=== PATIENT | female | born 1980 | race Caucasian/White ===

== ENCOUNTER 2018-01-16 03:28 | Emergency (ER) | payer OTHER, SELFPAY ==
--- NOTE | 2018-01-16 04:39 | ER ---
Nurse's Notes [facility] Name: Deyanira Del Castillo Age: 37 yrs Sex: Female : 1980 Arrival Date: 01/16/2018 Time: 03:29 Bed 18 Private MD: Diagnosis: Pain in right shoulder Presentation: 01/16 03:36 Presenting complaint: Patient states: that 1 week ago she was lifting boxes and hurt fc her right shoulder. Pain has just continually gotten worse. Transition of care: patient was not received from another setting of care. Onset of symptoms was January 09, 2018. Risk Assessment: Do you want to hurt yourself or someone else? Patient reports no desire to harm self or others. Initial Sepsis Screen: Does the patient meet any 2 criteria? No. Patient's initial sepsis screen is negative. Does the patient have a suspected source of infection? No. Patient's initial sepsis screen is negative. Care prior to arrival: None. 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 - Social history:: Smoking status: Patient uses tobacco products, smokes one pack cigarettes per day. - Ebola Screening: : Patient negative for fever greater than or equal to 101.5 degrees Fahrenheit, and additional compatible Ebola Virus Disease symptoms Patient denies exposure to infectious person Patient denies travel to an Ebola-affected area in the 21 days before illness onset. - Family history:: not pertinent. Screenin:00 Abuse screen: Denies threats or abuse. Nutritional screening: No deficits noted. ea Tuberculosis screening: No symptoms or risk factors identified. Fall Risk None identified. Assessment: 04:00 General: Appears uncomfortable, Behavior is calm, cooperative, appropriate for age. ea Pain: Complains of pain in right clavicle and anterior aspect of right upper chest Pain radiates to left clavicle Pain currently is 9 out of 10 on a pain scale. Quality of pain is described as aching, Is continuous, Alleviated by nothing. Neuro: Level of Consciousness is awake, alert, obeys commands, Oriented to person, place, time, situation. Cardiovascular: Patient's skin is warm and dry. Respiratory: Airway is patent Respiratory effort is even, unlabored, Respiratory pattern is regular, symmetrical. GI: No signs and/or symptoms were reported involving the gastrointestinal system. : No signs and/or symptoms were reported regarding the genitourinary system. EENT: No signs and/or symptoms were reported regarding the EENT system. Derm: Skin is pink, warm \T\ dry. Musculoskeletal: Reports pain in right clavicle and right shoulder. 04:58 Reassessment: Patient and/or family updated on plan of care and expected duration. Pain ea level reassessed. Patient is alert, oriented x 3, equal unlabored respirations, skin warm/dry/pink. Discharge instructions given to patient, verbalized the understanding of instructions. Patient states feeling better. Patient states symptoms have improved. Vital Signs: 03:39 BP 118 / 77; Pulse 86; Resp 18; Temp 99.2(O); Pulse Ox 97% on R/A; Weight 58.97 kg (R); fc Height 5 ft. 10 in. (177.80 cm) (R); Pain 7/10; 03:39 Body Mass Index 18.65 (58.97 kg, 177.80 cm) ED Course: 03:29 Patient arrived in ED. am2 03:37 Triage completed. 03:39 Arm band placed on Patient placed in an exam room, on a stretcher. 03:44 Levi Agudelo MD is Attending Physician. [facility] 03:58 X-ray completed. Portable x-ray completed in exam room. Patient tolerated procedure kw well. 03:59 Shoulder Right (2 View) XRAY In Process Unspecified. EDMS 04:00 Patient has correct armband on for positive identification. Bed in low position. Call ea light in reach. Side rails up X2. 04:33 Meghan Bui, DOV is Primary Nurse. ea 04:38 Justin Hunt MD is Referral Physician. kathleen 05:01 No provider procedures requiring assistance completed. Patient did not have IV access ea during this emergency room visit. Administered Medications: 04:43 Drug: Motrin 600 mg Route: PO; ea 05:00 Follow up: Response: No adverse reaction ea 04:43 Drug: Valium 5 mg Route: PO; ea 05:00 Follow up: Response: No adverse reaction ea 04:43 Drug: [place] (7.5 mg-325 mg) 1 tabs Route: PO; ea 05:00 Follow up: Response: No adverse reaction ea Outcome: 04:39 Discharge ordered by MD. wang 05:01 Condition: improved ea 05:01 Discharge instructions given to patient, Instructed on discharge instructions, follow up and referral plans. medication usage, Demonstrated understanding of instructions, follow-up care, medications, Prescriptions given X 3. 05:04 Discharged to home ambulatory, with significant other. ea 05:05 Patient left the ED. ea Signatures: Dispatcher [employer] EDMS Levi Agudelo MD MD cha Chretien, Felicia, RN RN Val Stephen Amanda am2 Antunez, Elena, RN RN manjinder
--- NOTE | 2018-01-16 04:40 | EDPHYS ---
Physician Documentation [facility] Name: Deyanira Del Castillo Age: 37 yrs Sex: Female : 1980 Arrival Date: 01/16/2018 Time: 03:29 Bed 18 Private MD: ED Physician Levi Agudelo HPI: 01/16 04:34 This 37 yrs old Female presents to ER via Ambulatory with complaints of kathleen Shoulder Pain. 04:34 The patient or guardian complains of decreased range of motion, pain, spasm, kathleen tenderness. right shoulder and right trapezius. Context: The problem was sustained at an unknown site, resulted from lifting or carrying, The patient experiences decreased range of motion. Onset: The symptoms/episode began/occurred 2 day(s) ago. Modifying factors: the symptoms are alleviated by remaining still, The symptoms are aggravated by lifting weight, movement, rotation of arm. Associated signs and symptoms: The patient has no apparent associated signs or symptoms. Severity of symptoms: At their worst the symptoms were mild, moderate, in the emergency department the symptoms are unchanged. Treatment prior to arrival includes: elevation of the extremity, applying pressure to the affected area. The patient has not experienced similar symptoms in the past. 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 - Social history:: Smoking status: Patient uses tobacco products, smokes one pack cigarettes per day. - Ebola Screening: : Patient negative for fever greater than or equal to 101.5 degrees Fahrenheit, and additional compatible Ebola Virus Disease symptoms Patient denies exposure to infectious person Patient denies travel to an Ebola-affected area in the 21 days before illness onset. - Family history:: not pertinent. ROS: 04:34 Constitutional: Negative for fever, chills, and weight loss, Eyes: Negative for injury, kathleen pain, redness, and discharge, ENT: Negative for injury, pain, and discharge, Neck: Negative for injury, pain, and swelling, Cardiovascular: Negative for chest pain, palpitations, and edema, Respiratory: Negative for shortness of breath, cough, wheezing, and pleuritic chest pain, Abdomen/GI: Negative for abdominal pain, nausea, vomiting, diarrhea, and constipation, Back: Negative for injury and pain, : Negative for injury, bleeding, discharge, and swelling, Skin: Negative for injury, rash, and discoloration, Neuro: Negative for headache, weakness, numbness, tingling, and seizure, Psych: Negative for depression, anxiety, suicide ideation, homicidal ideation, and hallucinations, Allergy/Immunology: Negative for hives, rash, and allergies, Endocrine: Negative for neck swelling, polydipsia, polyuria, polyphagia, and marked weight changes, Hematologic/Lymphatic: Negative for swollen nodes, abnormal bleeding, and unusual bruising. 04:34 MS/extremity: Positive for injury or acute deformity, decreased range of motion, pain, tenderness, of the anterior aspect of right shoulder and posterior aspect of right shoulder. Exam: 04:34 Constitutional: This is a well developed, well nourished patient who is awake, alert, kathleen and in no acute distress. Head/Face: Normocephalic, atraumatic. Eyes: Pupils equal round and reactive to light, extra-ocular motions intact. Lids and lashes normal. Conjunctiva and sclera are non-icteric and not injected. Cornea within normal limits. Periorbital areas with no swelling, redness, or edema. ENT: Nares patent. No nasal discharge, no septal abnormalities noted. Tympanic membranes are normal and external auditory canals are clear. Oropharynx with no redness, swelling, or masses, exudates, or evidence of obstruction, uvula midline. Mucous membranes moist. Neck: Trachea midline, no thyromegaly or masses palpated, and no cervical lymphadenopathy. Supple, full range of motion without nuchal rigidity, or vertebral point tenderness. No Meningismus. Chest/axilla: Normal chest wall appearance and motion. Nontender with no deformity. No lesions are appreciated. Cardiovascular: Regular rate and rhythm with a normal S1 and S2. No gallops, murmurs, or rubs. Normal PMI, no JVD. No pulse deficits. Respiratory: Lungs have equal breath sounds bilaterally, clear to auscultation and percussion. No rales, rhonchi or wheezes noted. No increased work of breathing, no retractions or nasal flaring. Abdomen/GI: Soft, non-tender, with normal bowel sounds. No distension or tympany. No guarding or rebound. No evidence of tenderness throughout. Back: No spinal tenderness. No costovertebral tenderness. Full range of motion. Pelvic Exam: Normal external genitalia. Speculum exam with closed cervical os, no discharge or bleeding noted. Bimanual exam with normal adnexa, no adnexal or cervical motion tenderness. Normal uterus. Skin: Warm, dry with normal turgor. Normal color with no rashes, no lesions, and no evidence of cellulitis. Neuro: Awake and alert, GCS 15, oriented to person, place, time, and situation. Cranial nerves II-XII grossly intact. Motor strength 5/5 in all extremities. Sensory grossly intact. Cerebellar exam normal. Normal gait. Psych: Awake, alert, with orientation to person, place and time. Behavior, mood, and affect are within normal limits. 04:34 Respiratory: the patient does not display signs of respiratory distress, Respirations: normal, Breath sounds: rhonchi, that are mild, are scattered. 04:34 Musculoskeletal/extremity: Extremities: noted in the anterior aspect of right shoulder and posterior aspect of right shoulder: decreased ROM, pain, ROM: full passive range of motion, limited active range of motion, Pulses: noted to be 4+ in the bilateral radial, brachial, femoral, popliteal, posterior tibial and and dorsalis pedis arteries., Sensation intact. Compartment Syndrome exam of affected extremity: is normal. no numbness, no tingling, no sensation deficit, no palor, no weak pulses, severe pain, with passive ROM. Vital Signs: 03:39 BP 118 / 77; Pulse 86; Resp 18; Temp 99.2(O); Pulse Ox 97% on R/A; Weight 58.97 kg (R); fc Height 5 ft. 10 in. (177.80 cm) (R); Pain 7/10; 03:39 Body Mass Index 18.65 (58.97 kg, 177.80 cm) fc MDM: 03:44 Patient medically screened. [facility] 01/16 03:44 Order name: Shoulder Right (2 View) XRAY [facility] 01/16 04:34 Order name: Sling; Complete Time: 04:49 [facility] Administered Medications: 04:43 Drug: Motrin 600 mg Route: PO; ea 05:00 Follow up: Response: No adverse reaction ea 04:43 Drug: Valium 5 mg Route: PO; ea 05:00 Follow up: Response: No adverse reaction ea 04:43 Drug: Kingsley (7.5 mg-325 mg) 1 tabs Route: PO; ea 05:00 Follow up: Response: No adverse reaction ea Disposition: 01/16/18 04:39 Discharged to Home. Impression: Pain in right shoulder. - Condition is Stable. - Discharge Instructions: Musculoskeletal Pain, Shoulder Pain, Shoulder Pain, [id number]. - Prescriptions for Skelaxin 800 mg Oral Tablet - take 1 tablet by ORAL route every 6 hours As needed; 24 tablet. Tylenol- Codeine #3 300-30 mg Oral Tablet - take 2 tablet by ORAL route every 6 hours As needed; 30 tablet. Motrin IB 200 mg Oral Tablet - take 2 tablet by ORAL route every 6 hours As needed as needed with food; 24 tablet. - Medication Reconciliation Form, Thank You Letter, Antibiotic Education, Prescription Opioid Use, Work release form form. - Follow up: Private Physician; When: 2 - 3 days; Reason: Recheck today's complaints, Continuance of care, Re-evaluation by your physician. Follow up: Justin Hunt MD; When: 2 - 3 days; Reason: Recheck today's complaints, Continuance of care, Re-evaluation by your physician. - Problem is new. - Symptoms have improved. Signatures: Dispatcher [employer] EDLevi Levi MD MD cha Chretien, Felicia, RN RN fc Antunez, Elena, RN RN ea Corrections: (The following items were deleted from the chart) 05:05 04:39 01/16/2018 04:39 Discharged to Home. Impression: Pain in right shoulder. ea Condition is Stable. Forms are Medication Reconciliation Form, Thank You Letter, Antibiotic Education, Prescription Opioid Use. Follow up: Private Physician; When: 2 - 3 days; Reason: Recheck today's complaints, Continuance of care, Re-evaluation by your physician. Follow up: Dr. Justin Hunt; When: 2 - 3 days; Reason: Recheck today's complaints, Continuance of care, Re-evaluation by your physician. Problem is new. Symptoms have improved. kathleen
[2018-01-16 05:45] VITALS: BP 118/77; TEMP 99.2; O2SAT 97
--- NOTE | 2018-01-16 10:08 | RAD REPORT ---
EXAM DESCRIPTION: RAD - Shoulder Right 2 View - 01/16/2018 3:59 am CLINICAL HISTORY: PAIN COMPARISON: None. No comparisons FINDINGS: No bone or joint abnormality is detected.
== END 2018-01-16 05:05 | disposition home or self-care (01) ==
LOC: ER 03:28
DX: M25.511 Pain in right shoulder (principal); F17.210 Nicotine dependence, cigarettes, uncomplicated
CPT/HCPCS: 99283

== ENCOUNTER 2018-02-03 17:26 | Emergency (ER) | payer SELFPAY ==
--- OUTSIDE RECORDS SUMMARY | 2018-02-03 17:30 | XMS REPORT | Continuity of Care Document ---
:1980 Author Organization Interface Problems Problem Status Onset Classification Date Comments Source Date Reported CAUDA EQUINA Active 11/28/19 [facility] SYNDROME 16 [facility] CHIARI Active 09/01/19 [facility] MALFORMATION 16 [facility] INCISIONAL Active 03/07/20 [facility] PAIN,PURULENT 13 Medical DISCHARGE FROM Center INFECTED SURGERY Active 03/07/20 [facility] INCISION 13 Medical Center KIARI Active 02/06/20 [facility] MALFORMATIONOK 13 Medical PER [facility] [id number] CHAIRI Active 01/28/[address] Chiari Resolved Problem 12/02/2015 [facility] Murmur<sup>1</rucker Active Problem 12/02/2015 patient [facility] p> states she Medical had heart Center murmur-rowan enital Neck Resolved Problem 12/02/2015 patient [facility] pain<sup>2</sup> states her Medical neck pain Center is due to chiari malformatio n. Pain Active Problem 12/02/2015 [facility] Chiari Resolved Problem 03/12/2013 [facility] Murmur Active Problem 03/12/2013 [facility] Neck pain Resolved Problem 03/12/2013 [facility] Pain Active Problem 03/12/2013 [facility] PUD - Peptic Active Problem 03/12/2013 [facility] ulcer disease [facility] COMPRESSION OF Active [facility] BRAIN [facility] OTHER GENERAL Active [facility] SYMPTOMS [facility] Medications Medication Details Route Status Patient Ordering Order Source Instructions Provider Date Saline Flush 10 ml, Route: Inactive 11/28/ [facility] 0.9% MISC, Drug 2015 Medical Form: INJ, [place] Dosing Weight 63.636, kg, Q12H, Start date: 11/29/15 9:00:00 CDT, Duration: 30 day, Stop date: 12/28/15 21:00:00 CDTNotes: (Same as: BD Posiflush) sennosides, [facility] 8.6 mg, 1 tab, Inactive 11/28/ [facility] Route: PO, 2016 Medical Drug Form: Center TAB, Dosing Weight 63.636, kg, Q12H, Start date: 11/29/15 9:00:00 CDT, Duration: 30 day, Stop date: 12/28/15 21:00:00 CDTNotes: (Same as: Senokot) Docusate 100 mg, 1 cap, Inactive 11/28[facility] Route: PO, 2015 Medical Drug form: [place] CAP, Q12H, Dosing Weight 63.636, kg, Start date: 11/29/15 9:00:00 CDT, Duration: 30 day, Stop date: 12/28/15 21:00:00 CDTNotes: (Same as: Colace) (Do Not Crush) Ketorolac 10 mg=1 tab, Active [facility] Tromethamine 10 PO, Q6H, PRN 2016 Medical MG Oral Tablet Pain, X 5 day, Center # 20 tab, 0 Refill(s) Acetaminophen 1 tab, PO, Inactive 11/28[facility] 300 MG / Codeine Q4H, PRN Pain, 2016 Medical Phosphate 30 MG X 7 day, # 42 Center Oral Tablet tab, 0 [Tylenol with Refill(s) Codeine #3] docusate sodium 100 mg=1 cap, Inactive 11/28[facility] 100 mg oral PO, Q12H, # 10 2016 Medical capsule cap, 0 Center Refill(s) cyclobenzaprine 10 mg=1 tab, Inactive 11/28[facility] [place] 10 mg oral PO, TID, PRN 2016 Medical tablet Spasm, # 30 Center tab, 0 Refill(s) Morphine 2 mg, 1 mL, Inactive 11/28[facility] Route: IVP, 2016 Medical Drug form: [place] INJ, Q4H, Dosing Weight 63.636, kg, PRN Pain Score 7-10, Start date: 11/29/15 1:16:00 CDT, Duration: 30 day, Stop date: 12/29/15 1:15:00 CDTNotes: (Same as:MORPhine Sulfate) Flexeril 10 mg, 1 tab, Inactive 11/28[facility] Route: PO, 2016 Medical Drug form: [place] TAB, TID, Dosing Weight 63.636, kg, PRN Spasm, Start date: 11/29/15 1:16:00 CDT, Duration: 30 day, Stop date: 12/29/15 1:15:00 CDTNotes: (Same As: Flexeril) Labetalol 10 mg, 2 mL, Inactive Cait Route: IVP, 2015 Medical Drug form: Center INJ, Q15Min, Dosing Weight 63.636, kg, PRN Hypertension, Start date: 11/29/15 1:14:00 CDT, Duration: 3 doses or times, Stop date: Limited # of times Hydralazine 10 mg, 0.5 mL, Inactive Cait Route: IV, 2015 Medical Drug form: [place] INJ, Q4H, Dosing Weight 63.636, kg, PRN Hypertension, Start date: 11/29/15 1:14:00 CDT, Duration: 30 day, Stop date: 12/29/15 1:13:00 CDTNotes: (Same as: Apresoline) Push over 5 minutes Saline Flush 10 ml, Route: Inactive Cait 0.9% MISC, Drug 2015 Medical Form: INJ, Center Dosing Weight 63.636, kg, PRN, PRN Line Flush, Start date: 11/29/15 1:12:00 CDT, Duration: 30 day, Stop date: 12/29/15 1:11:00 CDTNotes: (Same as: BD Posiflush) Regular Insulin, 3 unit, 0.03 Inactive [facility] Human 100 UNT/ML mL, Route: 2016 Medical Injectable SUB-Q, Drug Center Solution form: SOLN, PRN, Dosing Weight 63.636, kg, PRN Abnormal Lab Result, Start date: 11/29/15 1:12:00 CDT, Duration: 30 day, Stop date: 12/29/15 1:11:00 CDTNotes: (Same as: Humulin R) Roll in palms of hands gently; Do not shake vigorously. "single patient use only" (Restricted to patients requiring a dose > 60 units) WASTE: F/P - Black; E - Municipal Trash Bin Stable for 28 days at room temperature Expires in days from Date Dextrose 50% 25 gm, 50 mL, Inactive [facility]ait Syringe Route: IVP, 2015 Medical Drug Form: [place] INJ, Dosing Weight 63.636, kg, PRN, PRN Abnormal Lab Result, Start date: 11/29/15 1:12:00 CDT, Duration: 30 day, Stop date: 12/29/15 1:11:00 CDT Sodium Chloride 1,000 mL, Inactive [facility]ait 0.154 MEQ/ML Rate: 75 2015 Medical Injectable ml/hr, Infuse [place] Solution over: 13.3 hr, Route: IVPB, Dosing Weight 63.636 kg, Total Volume: 1,000, Start date: 11/29/15 1:12:00 CDT, Duration: 30 day, Stop date: 12/29/15 1:11:00 CDT Ondansetron 4 mg, 2 mL, Inactive [facility] Route: IVP2015 Medical Drug form: [place] INJ, Q8H, Dosing Weight 63.636, kg, PRN Nausea & Vomiting, Start date: 11/29/15 1:12:00 CDT, Duration: 30 day, Stop date: 12/29/15 1:11:00 CDTNotes: (Same as: Zofran) MEDICATION WASTE Product Size: 4 mg Product Wasted: ___ mg Bisacodyl 10 mg, 1 supp, Inactive [facility]ait Route: RI, 2016 Medical Drug form: [place] SUPP, Daily, Dosing Weight 63.636, kg, PRN Constipation, Start date: 11/29/15 1:12:00 CDT, Duration: 30 day, Stop date: 12/29/15 1:11:00 CDTNotes: (Same As: Dulcolax, Bisco-Lax) Acetaminophen 1 tab, Route: Inactive [facility]ait 325 MG / PO, Drug Form: 2015 Medical Hydrocodone TAB, Dosing Center Bitartrate 10 MG Weight 63.636, Oral Tablet kg, Q4H, PRN Pain Score 4-6, Start date: 11/29/15 1:12:00 CDT, Duration: 30 day, Stop date: 12/29/15 1:11:00 CDTNotes: Do not exceed 4gm/day of acetaminophen. (Same as: [facility] 325/10) Morphine 2 mg, Route: Inactive [facility] IVP, Q1H, 2015 Medical Dosing Weight Center 63.636, kg, PRN Pain Score 7-10, Start date: 11/29/15 1:12:00 CDT, Duration: 30 day, Stop date: 12/29/15 1:11:00 CDT Acetaminophen 1 tab, PO, Active [facility] 325 MG / BID, 0 2015 [facility] Hydrocodone Refill(s) [place] Bitartrate 10 MG Oral Tablet [[facility] 10/325] pregabalin 200 200 mg=1 cap, Active [facility] mg oral capsule PO, TID, # 30 2015 Medical cap, 1 Center Refill(s) Keflex 500 mg 500 mg, 1 cap, PO Active Broderick [facility] oral capsule PO, QID, 56 2012 Medical cap, Center Substitution Allowed, CAP Keflex 500 mg 500 mg, 1 cap, PO Active Esquenayari [facility] oral capsule PO, QID, 28 Lay 2012 Medical cap, Center Substitution Allowed, CAP acetaminophen-hy 1 tab, PO, PO Active Esquenayari [facility] drocodone 325 Q4H, PRN, 50 Lay 2012 Medical mg-10 mg oral tab, Pain Center tablet Score 4-6, Substitution Allowed, Maintenance, TAB Remove - 1 patch, TOP No Longer Johnson [facility] lidocaine Route: TOP, Active 2012 Medical topical patch Daily, Drug Center form: ERFILM, Start date: 03/10/13 5:00:00, Duration: 30 day, Stop date: 04/08/13 5:00:00 Celebrex 200 mg, 2 cap, PO No Longer Alex [facility] Route: PO, Active 2012 Medical Drug form: [place] CAP, Q12H, Dosing Weight 56, kg, Start date: 03/10/13 4:00:00, Duration: 30 day, Stop date: 04/08/13 16:00:00 Lyrica 100 mg, 1 cap, PO No Longer Alex [facility] Route: PO, Active 2012 Medical Drug form: [place] CAP, Q8H, Dosing Weight 56, kg, Start date: 03/10/13 0:00:00, Duration: 30 day, Stop date: 04/08/13 16:00:00 tramadol 100 mg, 2 tab, PO No Longer Alex [facility] Route: PO, Active 2012 Medical Drug form: Center TAB, Q6H, Dosing Weight 56, kg, Start date: 03/09/13 18:00:00, Duration: 30 day, Stop date: 04/08/13 12:00:00 ibuprofen 400 mg 800 mg, 2 tab, PO No Longer Hernandez [facility] oral tablet Route: PO, Active 2012 Medical Drug form: Center TAB, Q6H, Dosing Weight 56, kg, PRN Pain, Start date: 03/09/13 17:32:00, Duration: 30 day, Stop date: 04/08/13 17:31:00 Lidoderm 5% 1 patch, TOP No Longer Alex [facility] topical film Route: TOP, Active 2012 Medical (patch) Daily, Drug Center form: FILM, on 12 hrs and off 12 hrs, Start date: 03/09/13 17:00:00, Duration: 30 day, Stop date: 04/07/13 17:00:00, Remove after 12 hoursRemove after 12 hours Celebrex 200 mg, Route: PO No Longer Johnson [facility] PO, Drug form: Active 2012 Medical CAP, BID, Center Dosing Weight 56, kg, Start date: 03/09/13 17:00:00, Duration: 30 day, Stop date: 04/08/13 9:00:00 HYDROmorphone 15 mg, 30 mL, IV No Longer Meiner [facility] 0.5mg/mL [facility] [employer] [facility] Route: IV, [facility] [facility] Active 2012 Medical (15mg/30 mL) 15 Dose: 0.2 mg, Center mg [facility] [employer] [facility] Lockout: 8 minutes, 4 Hour Limit (In MG): 6, Drug Form: INJ, Continuous, STAT, Start date: 03/09/13 16:20:00, Duration: 30 day, Stop date: 04/08/13 16:19:00 [facility] 10/325 1 tab, Route: PO No Longer Johnson [facility] oral tablet PO, Drug Form: Active 2012 Medical TAB, Dosing Center Weight 56, kg, Q4H, Start date: 03/09/13 16:00:00, Duration: 30 day, Stop date: 04/08/13 12:00:00 Robaxin 1,000 mg, 2 PO No Longer Johnson 03/09[facility] tab, Route: Active 2012 Medical PO, Drug form: [place] TAB, Q8H, Dosing Weight 56, kg, Start date: 03/09/13 16:00:00, Duration: 30 day, Stop date: 04/08/13 8:00:00 Dilaudid 2 mg, 1 mL, IV No Longer Hernandez 03/09[facility] Route: IV, Active 2012 Medical Drug form: [place] INJ, Q2H, Dosing Weight 56, kg, PRN Pain, Start date: 03/09/13 15:47:00, Stop date: 03/09/13 21:00:00 Celebrex 400 mg, 4 cap, PO No Longer Johnson 03/09[facility] Route: PO, Active 2012 Medical Drug form: [place] CAP, ONCE, Dosing Weight 56, kg, Start date: 03/09/13 15:20:00, Stop date: 03/09/13 15:20:00 Lyrica 300 mg, 3 cap, PO No Longer Johnson 03/09[facility] Route: PO, Active 2012 Medical Drug form: [place] CAP, ONCE, Dosing Weight 56, kg, Start date: 03/09/13 15:19:00, Stop date: 03/09/13 15:19:00 ondansetron 4 mg, 2 mL, IVP No Longer Florence 03/09[facility] Route: IVP, Active 2012 Medical Drug form: [place] INJ, ONCE, Dosing Weight 56, kg, PRN Nausea & Vomiting, Start date: 03/09/13 12:05:00 flumazenil 0.2 mg, 2 mL, IVP No Longer Florence 03/09[facility] Route: IVP, Active 2012 Medical Drug form: [place] INJ, PRN, Dosing Weight 56, kg, PRN Benzodiazepine Reversal, Initial dose, Start date: 03/09/13 12:05:00, Duration: 30 day, Stop date: 04/08/13 12:04:00 naloxone 0.04 mg, 0.1 IVP No Longer [place] 03/09[facility] mL, Route: Active 2012 Medical IVP, Drug Center form: INJ, Q2MIN, Dosing Weight 56, kg, PRN Narcotic Reversal, Start date: 03/09/13 12:05:00, Duration: 8 doses or times, Stop date: Limited # of times hydromorphone 0.5 mg, 0.25 IVP No Longer Alex [facility]ait mL, Route: Active 2012 Medical IVP, Drug Center form: INJ, Q5Min, Dosing Weight 56, kg, PRN Pain Score 7-10, Start date: 03/09/13 12:05:00, Duration: 5 doses or times, Stop date: Limited # of times Phenergan 25 mg, 1 tab, PO No Longer Cheli C[facility] Route: PO, Active 2012 Medical Drug form: [place] TAB, Q6H, Dosing Weight 56, kg, PRN as needed for nausea/vomitin g, Start date: 03/09/13 11:43:00, Duration: 30 day, Stop date: 04/08/13 11:42:00 [facility]fran 4 mg, 1 tab, [facility] Route: PO, 2012 Medical Drug form: [place] TAB, ONCE, Dosing Weight 56, kg, Start date: 03/09/13 11:43:00, Stop date: 03/09/13 11:43:00 Saline Flush 5 ml, Route: IVP No Longer Esquenazi Cait 0.9% IVP, Drug Active Lay 2012 Medical Form: INJ, [place] Dosing Weight 56.818, kg, Q12H, Start date: 03/07/13 21:00:00, Duration: 30 day, Stop date: 04/06/13 9:00:00 morphine Sulfate 1 mg, 0.5 mL, IV No Longer Alex 03/08[facility] Cait Route: IV, Active 2012 Medical Drug form: Center INJ, Q2H, Dosing Weight 56, kg, PRN as needed for pain, Start date: 03/07/13 20:48:00, Duration: 30 day, Stop date: 04/06/13 20:47:00 vancomycin + 1.25 gm, IV No Longer Cheli Cait Sodium Chloride Route: IV, Active 2012 Medical 0.9% IV 250 mL [id number], Center Dosing Weight 56.818, kg, Start date: 03/07/13 20:00:00, Stop date: 04/06/13 8:00:00 cefepime 1 gm, Route: IVPB No Longer Floyd [facility] IVPB, Drug Active 2012 Medical form: INJ, Center ABXQ8H, Dosing Weight 56.818, kg, (CrCl >/=50 ml/min), Start date: 03/07/13 19:00:00, Duration: 30 day, Stop date: 04/06/13 11:00:00 Keflex 500 mg, 1 cap, PO No Longer Floyd [facility] Route: PO, Active 2012 Medical Drug form: Center CAP, Q6H, Dosing Weight 56.818, kg, Start date: 03/07/13 18:00:00, Duration: 30 day, Stop date: 04/06/13 12:00:00 Saline Flush 5 ml, Route: IVP No Longer Esquenazi [facility] 0.9% IVP, Drug Active Lay 2012 Medical Form: INJ, Center Dosing Weight 56.818, kg, PRN, PRN Line Flush, Start date: 03/07/13 17:42:00, Duration: 30 day, Stop date: 04/06/13 17:41:00 Sodium Chloride 1,000 mL, IV No Longer Esquenazi [facility] 0.9% IV 1,000 mL Rate: 50 Active Lay 2013 Medical ml/hr, Infuse Center over: 20 hr, Route: IV, Dosing Weight 56.818 kg, Total Volume: 1,000, Start date: 03/07/13 17:42:00, Duration: 30 day, Stop date: 04/06/13 17:41:00 tramadol 50 mg, 1 tab, PO No Longer Alex Cait Route: PO, Active 2012 Medical Drug form: Center TAB, Q4H, Dosing Weight 56.818, kg, PRN Pain Score 1-3, Start date: 03/07/13 17:42:00, Duration: 30 day, Stop date: 04/06/13 17:41:00 acetaminophen-hy 2 tab, Route: PO No Longer Alex Ciat drocodone 325 PO, Drug Form: Active 2012 Medical mg-10 mg oral TAB, Dosing Center tablet Weight 56.818, kg, Q4H, PRN Pain Score 7-10, Start date: 03/07/13 17:42:00, Duration: 30 day, Stop date: 04/06/13 17:41:00 Omnipaque 98 mL, Route: IVP No Longer [facility] 350mg/ml IVP, Drug Active 2012 Medical Form: [facility] Dosing Weight 56.818, kg, ONCALL, STAT, Start date: 03/07/13 17:10:00, Duration: 1 doses or times, Weight=95 - 109kg -- "To be infused by Radiology Staff ONLY"Weig ht=95 - 109kg -- "To be infused by Radiology Staff ONLY" Zofran 4 mg, 2 mL, IVP No Longer [facility] Route: IVP, Active 2012 Medical Drug form: [place] INJ, ONCE, Dosing Weight 56.818, kg, Priority: STAT, Start date: 03/07/13 16:14:00, Stop date: 03/07/13 16:14:00 morphine Sulfate 4 mg, 1 mL, IVP No Longer [facility] Route: IVP, Active 2012 Medical Drug form: [place] INJ, ONCE, Dosing Weight 56.818, kg, Priority: STAT, Start date: 03/07/13 16:13:00, Stop date: 03/07/13 16:13:00 Pepcid 20 mg 20 mg, 1 tab, PO No Longer Iluonakhamhe [facility] oral tablet Route: PO, Active 2012 Medical Drug form: [place] TAB, Daily, Dosing Weight 63.009, kg, Start date: 02/18/13 9:00:00, Duration: 30 day, Stop date: 03/19/13 9:00:00 Zofran 4 mg oral 4 mg, 1 tab, PO Active [place] tablet PO, ONCE, 10 Lay 2012 Medical tab, Center Substitution Allowed, TAB dexamethasone 1 See Active Esquenazi [facility] mg oral tablet Instructions, Lay 2012 Medical with food, 36 Center tab, Substitution Allowedwith food Pepcid 20 mg 20 mg, 1 tab, PO Active Esquenazi [facility] oral tablet PO, Daily, 50 Lay 2012 Medical tab, Center Substitution Allowed, TAB docusate sodium 100 mg, 1 cap, PO Active [facility] [place] 100 mg oral PO, Q12H, 50 Lay 2012 Medical capsule cap, Center Substitution Allowed, CAP acetaminophen-hy 1 tab, PO, PO Active [place] [place] drocodone 325 Q4H, PRN, 50 Lay 2012 Medical mg-10 mg oral tab, Pain Center tablet Score 4-6, Substitution Allowed, Maintenance, TAB Phenergan 12.5 mg, 0.5 IVPB No Longer [place] mL, Route: Active 2012 Medical IVPB, Drug Center form: INJ, Q4H, Dosing Weight 63.009, kg, PRN Nausea & Vomiting, Start date: 02/17/13 18:19:00, Duration: 30 day, Stop date: 03/19/13 18:18:00 magnesium 2 gm, 50 mL, IVPB No Longer Claudette [facility] sulfate Route: IVPB, Active 2012 Medical Drug form: [place] INJ, ONCE, Start date: 02/17/13 4:32:00, Stop date: 02/17/13 4:32:00 cefazolin 1 gm, Route: IVPB No Longer Keith [facility] IVPB, Drug Active 2012 Medical form: PDR/INJ, [place] ABXQ8H, Start date: 02/16/13 22:30:00, Duration: 1 doses or times, Stop date: 02/16/13 22:30:00 Dilaudid 0.5 mg, 0.25 IVP No Longer Shagagi [facility] mL, Route: Active 2012 Medical IVP, Drug Center form: INJ, ONCE, Dosing Weight 61.364, kg, Priority: STAT, Start date: 02/16/13 22:20:00, Stop date: 02/16/13 22:20:00 FENTanyl patch 1 patch, TOP No Longer Shagagi [facility] 75 mcg/hr Route: TOP, Active 2012 Medical Drug Form: [place] ERFILM, Dosing Weight 61.364, kg, Q72H, STAT, Start date: 02/16/13 21:11:00, Duration: 30 day, Stop date: 03/15/13 21:11:00 Saline Flush 5 ml, Route: IVP No Longer Keith [facility] 0.9% IVP, Drug Active 2012 Medical Form: INJ, Center Dosing Weight 61.364, kg, Q12H, Start date: 02/16/13 21:00:00, Duration: 30 day, Stop date: 03/18/13 9:00:00 docusate 100 mg, 1 cap, PO No Longer Keith [facility] Route: PO, Active 2012 Medical Drug form: Center CAP, Q12H, Dosing Weight 61.364, kg, Start date: 02/16/13 21:00:00, Duration: 30 day, Stop date: 03/18/13 9:00:00 senna 8.6 mg, 1 tab, PO No Longer Keith [facility] Route: PO, Active 2012 Medical Drug Form: Center TAB, Dosing Weight 61.364, kg, Q12H, Start date: 02/16/13 21:00:00, Duration: 30 day, Stop date: 03/18/13 9:00:00 famotidine 20 mg, 2 mL, IVP No Longer Iluon[place]hamhe [facility] Route: IVP, Active 2012 Medical Drug form: Center INJ, Q12H, Dosing Weight 61.364, kg, Start date: 02/16/13 21:00:00, Duration: 30 day, Stop date: 03/18/13 9:00:00 Dilaudid 0.5 mg, Route: IV No Longer Narcsio [facility] IV, ONCE, Active 2012 Medical Dosing Weight Center 61.364, kg, PRN Pain, Start date: 02/16/13 20:04:00 diphenhydrAMINE 12.5 mg, 0.25 IVP No Longer Davies [facility] mL, Route: Active 2012 Medical IVP, Drug Center form: INJ, PRN, Dosing Weight 61.364, kg, PRN Itching, Start date: 02/16/13 18:44:00, Duration: 1 day, Stop date: 02/17/13 18:43:00 flumazenil 0.2 mg, 2 mL, IVP No Longer Dais [facility] Route: IVP, Active 2012 Medical Drug form: Center INJ, PRN, Dosing Weight 61.364, kg, PRN Benzodiazepine Reversal, Initial dose, Start date: 02/16/13 18:44:00, Duration: 1 day, Stop date: 02/17/13 18:43:00 naloxone 0.04 mg, 0.1 IVP No Longer Dais [facility] mL, Route: Active 2012 Medical IVP, Drug Center form: INJ, Q2MIN, Dosing Weight 61.364, kg, PRN Narcotic Reversal, Start date: 02/16/13 18:44:00, Duration: 8 doses or times, Stop date: 02/17/13 0:00:00 morphine Sulfate 2 mg, 1 mL, IVP No Longer Dais [facility] Route: IVP, Active 2012 Medical Drug form: Center INJ, Q5Min, Dosing Weight 61.364, kg, PRN Pain Score 4-6, Start date: 02/16/13 18:44:00, Duration: 5 doses or times, Stop date: 02/17/13 0:00:00 ondansetron 4 mg, 2 mL, IVP No Longer Davies Campuss [facility] Route: IVP, Active 2012 Medical Drug form: Center INJ, ONCE, Dosing Weight 61.364, kg, PRN Nausea & Vomiting, Start date: 02/16/13 18:44:00 promethazine 6.25 mg, 0.25 IVPB No Longer Dais [place] mL, Route: Active 2012 Medical IVPB, Drug Center form: INJ, ONCE, Dosing Weight 61.364, kg, PRN Nausea & Vomiting, Start date: 02/16/13 18:44:00 dexamethasone 4 mg, 1 tab, PO No Longer Keith [facility] Route: PO, Active 2012 Medical Drug form: Center TAB, Q6H, Dosing Weight 61.364, kg, Start date: 02/16/13 18:00:00, Duration: 30 day, Stop date: 03/18/13 12:00:00 cefazolin (SCIP) 1 gm, Route: IVPB No Longer Keith [facility] IVPB, Drug Active 2012 Medical form: INJ, Center Q8H, Dosing Weight 61.364, kg, Start date: 02/16/13 16:00:00, Duration: 1 doses or times, Stop date: 02/16/13 16:00:00 Dextrose 50% 12.5 gm, 25 IVP No Longer Keith [facility] Syringe mL, Route: Active 2012 Medical IVP, Drug Center Form: INJ, Dosing Weight 61.364, kg, PRN, PRN Abnormal Lab Result, Start date: 02/16/13 13:35:00, Duration: 30 day, Stop date: 03/18/13 13:34:00 insulin regular 3 unit, 0.03 SUB-Q No Longer Keith [facility] 100 units/mL mL, Route: Active 2012 [facility] human SUB-Q, Drug Center recombinant form: SOLN, PRN, Dosing Weight 61.364, kg, PRN Abnormal Lab Result, Start date: 02/16/13 13:35:00, Duration: 30 day, Stop date: 03/18/13 13:34:00 Saline Flush 5 ml, Route: IVP No Longer Keith [facility] 0.9% IVP, Drug Active 2012 Medical Form: INJ, Center Dosing Weight 61.364, kg, PRN, PRN Line Flush, Start date: 02/16/13 13:35:00, Duration: 30 day, Stop date: 03/18/13 13:34:00 morphine Sulfate 1 mg, 0.5 mL, IVP No Longer Keith [facility] Route: IVP, Active 2012 Medical Drug form: Center INJ, Q1H, Dosing Weight 61.364, kg, PRN Pain Score 7-10, Start date: 02/16/13 13:35:00, Duration: 30 day, Stop date: 03/18/13 13:34:00 acetaminophen-hy 2 tab, Route: PO No Longer Keith [facility] drocodone 325 PO, Drug Form: Active 2012 Medical mg-10 mg oral TAB, Dosing Center tablet Weight 61.364, kg, Q4H, PRN Pain Score 7-10, Start date: 02/16/13 13:35:00, Duration: 30 day, Stop date: 03/18/13 13:34:00 dexamethasone 10 mg, 2.5 mL, IVP No Longer Keith [facility] Route: IVP, Active 2012 Medical Drug form: Center INJ, ONCE, Dosing Weight 61.364, kg, Start date: 02/16/13 13:35:00, Stop date: 02/16/13 13:35:00 bisacodyl 10 mg, 1 supp, RI [facility] Route: RI, Active 2012 Medical Drug form: [place] SUPP, Daily, Dosing Weight 61.364, kg, PRN Constipation, Start date: 02/16/13 13:35:00, Duration: 30 day, Stop date: 03/18/13 13:34:00 Sodium Chloride 1,000 mL, IV [facility] 0.9% IV 1,000 mL Rate: 50 Active 2012 Medical ml/hr, Infuse Center over: 20 hr, Route: IV, Dosing Weight 61.364 kg, Total Volume: 1,000, Start date: 02/16/13 13:35:00, Duration: 30 day, Stop date: 03/18/13 13:34:00 Sodium Chloride 250 mL, Rate: IV No Longer Keith Cait 0.9% (Bolus) IV 500 ml/hr, Active 2012 Medical 250 mL Infuse over: Center 30 minutes, Route: IV, Dosing Weight 61.364 kg, Total Volume: 250, Priority: STAT, Start date: 02/16/13 13:35:00, Duration: 1 doses or times, Stop date: 02/16/13 14:04:00 HYDROcodone-ibup 1 tab, PO, PO Active Cait rofen 7.5 mg-200 Q4H, PRN, for 2012 Medical mg oral tablet pain, Center Substitution Allowed, Maintenance, TAB Xanax 0.5 mg 0.5 mg, 1 tab, PO No Longer Claudette Cait oral tablet Route: PO, Active 2012 Medical Drug form: [place] TAB, PRE OP, Dosing Weight 61.364, kg, Start date: 02/16/13 11:00:00, Duration: 1 doses or times, Stop date: 02/17/13 0:00:00 cefazolin 2 gm, 50 mL, IVPB No Longer Claudette Cait Route: IVPB, Active 2012 Medical Drug form: [place] INJ, PRE OP, Start date: 02/16/13 3:00:00, Duration: 1 day, Stop date: 02/17/13 2:59:00 Allergies, Adverse Reactions, Alerts Substance Category Reaction Severity Reaction Status Date Comments Source type Reported Esoterica propensity Adverse Active [facility] with to adverse Reaction Medical Sunscreen reactions to [place] substance Immunizations Immunization Date Given Site Status Last Updated Comments Source Results Order Name Results Value Reference Date Interpretation Comments Source Range URINE AND UA Leuk Est Moderate Negative 11/28 [facility] *ABN* [place] (11/29/15 3:49 AM) URINE AND UA WBC 54 /HPF 0 - 5 11/28 [facility] [facility] URINE AND UA Bacteria Occasional None Seen 11/28 [facility] /HPF /HPF /2015 [facility] URINE AND UA <=1.0 0.1 - 1.0 11/28 [facility] Urobilinogen mg/dL [facility] URINE AND UA Mucus Moderate None Seen 11/28 [facility] /LPF /LPF [facility] URINE AND UA Sq Epi None Seen 11/28 [facility] URINE AND UA Color Yellow Yellow 11/28 [facility] *NA* [place] (11/29/15 3:49 AM) URINE AND UA Turbidity Clear Clear 11/28 [facility] (11/29/15 3:49 AM) [place] URINE AND UA Spec Grav 1.019 <=1.030 11/28 [facility] URINE AND UA Protein 20 mg/dL Negative 11/28 [facility] mg/dL [facility] URINE AND UA pH 6.0 5.0 - 8.0 11/28 [facility]2015 [facility] URINE AND UA Glucose Negative Negative 11/28 [facility] mg/dL mg/dL [facility] URINE AND UA Ketones Negative Negative 11/28 [facility] mg/dL mg/dL [facility] URINE AND UA Bili Negative Negative 11/28 [facility] *NA* [place] (11/29/15 3:49 AM) URINE AND UA Blood Trace Negative 11/28 [facility] *ABN* [place] (11/29/15 3:49 AM) URINE AND UA Nitrite Negative Negative 11/28 [facility] (11/29/15 3:49 AM) [place] URINE AND UA RBC 3 /HPF 0 - 2 11/28 [facility] BLOOD BANK Antibody Scrn Negative 11/28 [facility] (11/29/15 1:53 AM) [place] BLOOD BANK ABO/Rh O POS 11/28 [facility] ELECTROLYTE AGAP 10.8 meq/L 10.0 - 11/28 [facility] S 20.0 [facility] ELECTROLYTE eGFR 122 11/28 Result Comment: The eGFR is calculated using the CKD-EPI formula. In most young, healthy individuals the eGFR will be > 90 mL/min/1.73m2. The eGFR declines with age. An eGFR of 60-89 may be normal in [facility] mL/min/1.7 some populations, particularly the elderly, for whom the CKD-EPI formula has not been extensively validated. Use of the eGFR is not recommended in the following populations: [address] Individuals with unstable creatinine concentrations, including patients and those with serious co-morbid conditions. Patients with extremes in muscle mass or diet. The data above are obtained from the National Kidney Disease Education Program (NKDEP) which additionally recommends that when the eGFR is used in patients with extremes of body mass index for purposes of drug dosing, the eGFR should be multiplied by the estimated BMI. ELECTROLYTE Chloride Lvl 111 meq/L 95 - 109 11/28 [facility] ELECTROLYTE CO2 24 meq/L 24 - 32 11/28 [facility] ELECTROLYTE Calcium Lvl 9.1 mg/dL 8.5 - 10.5 11/28 [facility] ELECTROLYTE Glucose Lvl 110 mg/dL 70 - 99 11/28 [facility] ELECTROLYTE Sodium Lvl 142 meq/L 135 - 145 11/28 [facility] ELECTROLYTE Creatinine 0.55 mg/dL 0.50 - 11/28 [facility] Lvl 1.40 [facility] ELECTROLYTE BUN 14 mg/dL 7 - 22 11/28 [facility] ELECTROLYTE Potassium Lvl 3.8 meq/L 3.5 - 5.1 11/28 [facility] HEMATOLOGY INR 1.02 0.85 - 11/28 [facility] 1.17 [facility] HEMATOLOGY PTT 29.1 s 22.9 - 11/28 [place] 35.8 /2015 [facility] HEMATOLOGY PT 13.7 s 12.0 - 11/28 [facility] 14.7 [facility] HEMATOLOGY RDW 13.2 % 11.5 - 11/28 14.5 /2015 [facility] HEMATOLOGY MCH 31.7 pg 27.0 - 11/28 31.0 [facility] HEMATOLOGY Hct 37.6 % 36.0 - 11/28 48.0 [facility] HEMATOLOGY MCV 94.4 fL 80.0 - 11/28 98.0 [facility] HEMATOLOGY Hgb 12.6 g/dL 12.0 - 11/28 16.0 [facility] HEMATOLOGY MCHC 33.5 g/dL 32.0 - 11/28 36.0 [facility] HEMATOLOGY Platelet 212 K/CMM 133 - 450 11/28 [facility] HEMATOLOGY MPV 10.8 fL 7.4 - 10.4 11/28 [facility] HEMATOLOGY WBC 9.1 K/CMM 3.7 - 10.4 11/28 [facility] HEMATOLOGY RBC 3.98 M/CMM 4.20 - 11/28 5.40 [facility] HEMATOLOGY Basophils # 0.1 K/CMM 0.0 - 0.2 11/28 [facility] HEMATOLOGY Monocytes # 0.7 K/CMM 0.0 - 0.8 11/28 [facility] HEMATOLOGY Lymphocytes 15.5 % 20.0 - 11/28 40.0 [facility] HEMATOLOGY Lymphocytes # 1.4 K/CMM 1.0 - 5.5 11/28 [facility] HEMATOLOGY Segs-Bands # 7.0 K/CMM 1.5 - 8.1 11/28 [facility] HEMATOLOGY Eosinophils 0.1 % 0.0 - 4.0 11/28 [facility] HEMATOLOGY Basophils 0.6 % 0.0 - 1.0 11/28 [facility] HEMATOLOGY Monocytes 7.2 % 2.0 - 12.0 11/28 [facility] HEMATOLOGY Segs 76.6 % 45.0 - 11/28 [facility] 75.0 [facility] Spine Spine lumbar EXAM: MRI LUMBAR SPINE WITHOUT CONTRAST 11/28 - [facility] lumbar wo wo contrast /2015 - [facility] contrast MRI This report was dictated by a Assistant [employer] Manager/ Fellow. I have personally reviewed the images as Center MRI well as the Resident's interpretation and agree with the findings. DATE: 11/29/2015 1:15 AM CDT Read by: Fazal Stiles MD Resident: Fazal Stiles MD Dictated Date/time: 11/29/15 08:11 Electronically Signed by: Benny Ruiz MD 11/29/15 15:45 FINAL REPORT INDICATION: Backache COMPARISON: CT L-spine 11/29/2015 TECHNIQUE: Multiplanar, multisequence noncontrast MR imaging of the lumbar spine. IV contrast: None. FINDINGS: Some sequences are mildly degraded by patient motion. The vertebral bodies are normal in height and alignment. A T1 and T2 hyperintense lesion within the L2 vertebral body measuring up to 2.3 cm is consistent with a hemangioma. Otherwise normal marrow sign al. Nonspecific fatty marrow in the left side of the sacrum. Conus medullaris terminates at the inferior L1 level. Mild disc height loss at L5-S1 without superimposed focal protrusion or bulge. Otherwise, the disks are unremarkable. No spinal canal or neural foraminal stenosis. Paraspinal soft tissues are normal. A subcentimeter T2 hyperintense focus in the left kidney is seen, likely representing a cyst. IMPRESSION: Mild disc height loss at L5-S1. Otherwise unremarkable MRI of the lumbar spine. No spinal canal or foraminal stenosis. Spine Spine lumbar EXAM: CT LUMBAR SPINE WITHOUT CONTRAST 11/28 - [facility] contrast /2015 - [facility] contrast CT CT Center DATE: 11/29/2015 212 AM CDT Read by: Rolando Man MD Dictated Date/time: 11/29/15 07:04 Electronically Signed by: Rolando Man MD 11/29/15 07:13 FINAL REPORT INDICATION: 35 years old Female patient with of Backache. COMPARISON: None. TECHNIQUE: Volumetric acquisition of the lumbar spine, from the level of T12 to S1 without contrast. Axial, sagittal and coronal reconstructions. FINDINGS: Vertebral alignment is normal. There is no evidence of acute fracture or subluxation. Vertebral heights are maintained. Note is made of a small vertebral body hemangioma on the right side of the L2 vertebral body. Level by level analysis as follows: T12-L1: Preservation of disc height. No evidence of spina canal stenosis. No evidence of significant neural foraminal stenosis. L1-L2: Preservation of disc height. No evidence of spina canal stenosis. No evidence of significant neural foraminal stenosis. L2-L3: Preservation of disc height. Mild diffuse disc bulge. No evidence of spina canal stenosis. No evidence of significant neural foraminal stenosis. L3-L4: Preservation of disc height. Mild diffuse disc bulge. No evidence of spina canal stenosis. No evidence of significant neural foraminal stenosis. L4-L5: Preservation of disc height. Mild diffuse disc bulge. No evidence of spina canal stenosis. No evidence of significant neural foraminal stenosis. L5-S1: Preservation of disc height. Mild diffuse disc bulge. No evidence of spina canal stenosis. No evidence of significant neural foraminal stenosis. The prevertebral and paraspinous cervical soft tissues appear grossly unremarkable. Minimal nonspecific free fluid in the pelvis. IMPRESSION: 1. No acute abnormality on the CT Scan of the lumbar spine. 2. Mild diffuse disc bulges from L2-L3 to the L5-S1 without significant spinal canal or neural foraminal stenosis. CHEMISTRY eGFR 120 03/10 NA 1Result Comment: The eGFR is calculated using the CKD-EPI formula. In most young, healthy individuals the eGFR will be > 90 mL/min/1.73m2. The eGFR declines with age. An eGFR of 60-89 may be normal in [facility] mL/min/1. some populations, particularly the elderly, for whom the CKD-EPI formula has not been extensively validated. Use of the eGFR is not recommended in the following populations: [place] [address] Center Individuals with unstable creatinine concentrations, including patients and those with serious co-morbid conditions. Patients with extremes in muscle mass or diet. The data above are obtained from the National Kidney Disease Education Program (NKDEP) which additionally recommends that when the eGFR is used in patients with extremes of body mass index for purposes of drug dosing, the eGFR should be multiplied by the estimated BMI. CHEMISTRY Chloride Lvl 106 meq/L 95 - 109 03/10 Normal [facility] CHEMISTRY Calcium Lvl 8.8 mg/dL 8.5 - 10.5 03/10 Normal [facility] CHEMISTRY CO2 29 meq/L 24 - 32 03/10 Normal [facility] CHEMISTRY AGAP 10.2 meq/L 10.0 - 08 Normal [facility] 20.0 [facility] CHEMISTRY BUN 7 mg/dL 7 - 22 03/10 Normal [facility] CHEMISTRY Creatinine 0.6 mg/dL 0.5 - 1.4 03/10 Normal [facility] Lvl Medical Center CHEMISTRY Sodium Lvl 141 meq/L 135 - 145 03/10 Normal [facility] Center CHEMISTRY Potassium Lvl 4.2 meq/L 3.5 - 5.1 03/10 Normal [facility] CHEMISTRY Glucose Lvl 107 mg/dL 70 - 99 03/10 HI 3Interpretive Data: Adult reference range values reflect the clinical guidelines of the [place] [employer]. Medical Center Microbiolog Culture: AFB 03/09 [facility] y w/Smear [facility] Center Microbiolog Culture: 03/09 [facility] y Wound/Abscess Medical w/Gram Stain Center Microbiolog Culture: 03/09 [facility] y Anaerobic Medical Center Microbiolog Culture: 03/09 [facility] y Fungal [facility] w/Smear Center CHEMISTRY U Preg Negative Negative 03/09 Normal Medical (03/09/2013 08:40:35) Center BLOOD BANK ABO/Rh O POS 03/09 Unknown RESULTS [facility] Center BLOOD BANK Antibody Scrn Negative 03/09 Normal [facility] Medical (03/09/2013 08:40:00) Center CHEMISTRY Vanco Tr 6.0 ug/ml 03/09 NA 5Interpretive Data: Therapeutic Range: Trough: 10 - 20 ug/mL Medical Peak: 20 - 40 ug/mL [place] Potential Toxicity: >80 ug/mL CHEMISTRY Vanco Tr TND 0845 03/09 NA [facility] Center Microbiolog Culture: 03/09 [facility] y Wound/Abscess Medical w/Gram Stain Center HEMATOLOGY INR 0.97 0.85 - 03/08 Normal 6Interpretive Data: RECOMMENDED RANGES FOR PROTIME INR: [facility] 1. 2.0-3.0 for most medical and surgical thromboembolic states. Medical 2.5-3.5 for artificial heart valves and recurrent embolism. Center INR SHOULD BE USED ONLY FOR PATIENTS ON STABLE ANTICOAGULANT THERAPY. HEMATOLOGY PT 13.1 s 12.0 - 03/08 Normal [facility] 14.7 Medical Center HEMATOLOGY PTT 32.0 s 22.9 - 03/08 Normal 7Interpretive [facility] 35.8 Data: Heparin Medical Therapeutic Center Range: 57 - 92 Seconds IMMUNOLOGY [facility]-HIV 1/2 Negative Negative 03/07 NA [facility] Medical *NA* Center (03/07/2013 15:54:24) CHEMISTRY eGFR 97 03/07 2Result Comment: The eGFR is calculated using the CKD-EPI formula. In most young, healthy individuals the eGFR will be > 90 mL/min/1.73m2. The eGFR declines with age. An eGFR of 60-89 may be normal in [facility] mL/min/1.7 some populations, particularly the elderly, for whom the CKD-EPI formula has not been extensively validated. Use of the eGFR is not recommended in the following populations: [address] Individuals with unstable creatinine concentrations, including patients and those with serious co-morbid conditions. Patients with extremes in muscle mass or diet. The data above are obtained from the National Kidney Disease Education Program (NKDEP) which additionally recommends that when the eGFR is used in patients with extremes of body mass index for purposes of drug dosing, the eGFR should be multiplied by the estimated BMI. CHEMISTRY Calcium Lvl 8.7 mg/dL 8.5 - 10.5 03/07 Normal [facility] CHEMISTRY CO2 28 meq/L 24 - 32 03/07 Normal [facility] CHEMISTRY Creatinine 0.8 mg/dL 0.5 - 1.4 03/07 [facility] CHEMISTRY Glucose Lvl 112 mg/dL 70 - 99 03/07 HI 4Interpretive Data: Adult reference range values reflect the clinical guidelines of the [place] [employer]. [facility] CHEMISTRY BUN 11 mg/dL 7 - 22 03/07 Normal [facility] CHEMISTRY Sodium Lvl 138 meq/L 135 - 145 03/07 Normal [facility] CHEMISTRY Potassium Lvl 4.3 meq/L 3.5 - 5.1 03/07 Normal [facility] CHEMISTRY Chloride Lvl 102 meq/L 95 - 109 03/07 Normal [facility] CHEMISTRY AGAP 12.3 meq/L 10.0 - 03/07 Normal [facility] 20.0 [facility] HEMATOLOGY MPV 8.6 fL 7.4 - 10.4 03/07 Normal [facility] HEMATOLOGY Platelet 230 K/CMM 133 - 450 03/07 [facility] HEMATOLOGY RDW 12.5 % 11.5 - 03/07 Normal [facility] 14.5 /2012 [facility] HEMATOLOGY MCHC 33.7 g/dL 32.0 - 08/ Normal [facility] 36.0 /2012 [facility] HEMATOLOGY WBC 8.1 K/CMM 3.7 - 10.4 08/ Normal /2012 [facility] HEMATOLOGY MCH 31.3 pg 27.0 - 08 HI [place] 31.0 /2012 [facility] HEMATOLOGY MCV 92.9 fL 81.0 - 08 Normal [facility] 99.0 /2012 [facility] HEMATOLOGY Hct 32.8 % 36.0 - 08/ LOW [facility] 48.0 /2012 [facility] HEMATOLOGY Hgb 11.1 g/dL 12.0 - 08/ LOW [facility] 16.0 /2012 [facility] HEMATOLOGY RBC 3.53 M/CMM 4.20 - 08 [facility] 5.40 /2012 [facility] HEMATOLOGY Segs 68.4 % 45.0 - 08/ Normal [facility] 75.0 /2012 [facility] HEMATOLOGY Basophils 0.5 % 0.0 - 1.0 / Normal [facility] HEMATOLOGY Eosinophils 2.0 % 0.0 - 4.0 08/ Normal /2012 [facility] HEMATOLOGY Monocytes 8.8 % 2.0 - 12.0 08/ Normal [facility] HEMATOLOGY Lymphocytes 20.3 % 20.0 - 08/03 [facility] 40.0 /2012 [facility] HEMATOLOGY Basophils # 0.0 K/CMM 0.0 - 0.2 08/ Normal [facility] HEMATOLOGY Eosinophils # 0.2 K/CMM 0.0 - 0.5 / Normal [facility] HEMATOLOGY Monocytes # 0.7 K/CMM 0.0 - 0.8 08/ Normal /2012 [facility] HEMATOLOGY Lymphocytes # 1.6 K/CMM 1.0 - 5.5 08/ Normal [facility] HEMATOLOGY Segs-Bands # 5.6 K/CMM 1.5 - 8.1 03/07 Normal [facility] Spine Spine EXAMINATION: SPINE CERVICAL CT 03/07 - [facility] cervical w cervical w - Medical contrast CT contrast CT Center DATE: 03/07/2013 at 1654 hours Read by: Jeremiah Mccoy Dictated Date/time: 03/08/13 10:10 Electronically Signed by: Jeremiah Mccoy MD 03/08/13 11:13 FINAL REPORT INDICATION: S/p Chiari decompression with incisional pain and purulent discharge. ADDITIONAL DATA: Chiari decompression 2 weeks ago. The patient was recently seen in clinic this week and the stitches were removed. Last night while coming out of the shower she noticed some purulent di scharge from the lower portion of the incision and started to complain of posterior neck tenderness. She went to a local ER were oral antibiotics were prescribed. Purulent discharge worsened and the brianda n intensified and she came to the ER where a small 5 mm opening was found in the lower part of the incision with a small amount of purulent discharge. The patient's posterior neck and lateral cervi james area are extremely tender to superficial touch. No loculations or redness appreciated COMPARISON: Preoperative MRI from [facility] of 11/13/2012 showing tonsillar ectopia of 5 mm. TECHNIQUE: Axial helical 2.5mm thick scans were obtained of the cervical spine, without contrast. Sagittal and coronal reconstructions were made from thin-section axial data. Contrast: 100 cc of Omnipaque 350 was intravenously injected DISCUSSION: There is a low-density collection with a vaguely enhancing margin extending from the superior surgical site of the occipital bone in the midline down to the level of the C2 spinous process o adrina a distance of 4 cm with the largest transverse diameter of 2.5 cm just above the level of the C1 arch. The collection extends from the posterior dura to the trapezius/semispinalis muscle. There is a focal deficiency in the posterior dura at the top level of the odontoid process suggesting the likelihood of a dural leak. Thickening of the subcutaneous lymphatics is noted between the occipital bone and the level of C7. The largest focal subcutaneous density is identified at the interspinous level of C1-2 in the midline which may represent the point of purulent discharge. Small bony defect is noted of a suboccipital decompression. The posterior arches of C1 and C2 are intact. IMPRESSION: Probably infected posterior paraspinal collection extending from the occipital bone down to the level of C2 and posteriorly to the level of the subcutaneous muscles. The collection most likely results f rom a dural leak above the level of the C1 arch. Spine Spine 03/07 - [facility] cervical wo cervical - Medical contrast CT contrast CT Center EXAMINATION: SPINE CERVICAL CT Read by: Jeremiah Mccoy Dictated Date/time: 03/08/13 12:00 Electronically Signed by: Jeremiah Mccoy MD 03/08/13 12:00 FINAL REPORT DATE: 03/07/2013 at 1654 hours INDICATION: S/p Chiari decompression with incisional pain and purulent discharge. ADDITIONAL DATA: Chiari decompression 2 weeks ago. The patient was recently seen in clinic this week and the stitches were removed. Last night while coming out of the shower she noticed some purulent di scharge from the lower portion of the incision and started to complain of posterior neck tenderness. She went to a local ER were oral antibiotics were prescribed. Purulent discharge worsened and the brianda n intensified and she came to the ER where a small 5 mm opening was found in the lower part of the incision with a small amount of purulent discharge. The patient's posterior neck and lateral cervi james area are extremely tender to superficial touch. No loculations or redness appreciated COMPARISON: Preoperative MRI from [facility] on of 11/13/2012 showing tonsillar ectopia of 5 mm. TECHNIQUE: Axial helical 2.5mm thick scans were obtained of the cervical spine, without contrast. Sagittal and coronal reconstructions were made from thin-section axial data. Contrast: 100 cc of Omnipaque 350 was intravenously injected DISCUSSION: There is a low-density collection with a vaguely enhancing margin extending from the superior surgical site of the occipital bone in the midline down to the level of the C2 spinous process o adrian a distance of 4 cm with the largest transverse diameter of 2.5 cm just above the level of the C1 arch. The collection extends from the posterior dura to the trapezius/semispinalis muscle. There is a focal deficiency in the posterior dura at the top level of the odontoid process suggesting the likelihood of a dural leak. Thickening of the subcutaneous lymphatics is noted between the occipital bone and the level of C7. The largest focal subcutaneous density is identified at the interspinous level of C1-2 in the midline which may represent the point of purulent discharge. Small bony defect is noted of a suboccipital decompression. The posterior arches of C1 and C2 are intact. IMPRESSION: Probably infected posterior paraspinal collection extending from the occipital bone down to the level of C2 and posteriorly to the level of the subcutaneous muscles. The collection most likely results f rom a dural leak above the level of the C1 arch. Brain w/wo Brain w/wo EXAMINATION: CT HEAD WITHOUT CONTRAST 03/07 - [facility] contrast CT contrast CT /2012 - [facility] Center DATE: 03/07/2013 at 1651 hours Read by: Jeremiah Mccoy Dictated Date/time: 03/08/13 10:25 Electronically Signed by: Jeremiah Mccoy MD 03/08/13 11:49 FINAL REPORT INDICATION: S/p Chiari decompression with incisional pain and purulent discharge. TECHNIQUE: Axial 5 mm scans were done from the top level of the spinous process of C2 through the vertex of the skull. 100 cc of Omnipaque 350 was intravenously injected for the contrast enhanced sequence. COMPARISON: MRI brain from [facility] brain of 2012 DISCUSSION: A small fluid collection is noted in the posterior midline at the level of from the level of C1 to up to the level of the surgical midline defect of the occipital bone. Marked thinning of the posterior dura in the midline is noted at the level below the occipital bone, consider image 5 of series 6. Normal ventricles, sulci and cisterns. No focal edema identified. There is no extra-axial collection or abnormal enhancement.. hemorrhage identified. Normal skull base and cranial vault. The mastoid air cells and paranasal sinuses are clear. IMPRESSION: 1. 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 There is no conspicuous marginal enha ncement of this collection which which has been pretreated with antibiotics. This finding is described in greater detail on the contemporaneous CT study of the cervical spine. 2. The brain is normal. 3. There is no epidural or subdural skull empyema. BEDSIDE Comment1 Notify 02/18 NA Cait GLUCOSE RN/ /2012 [facility] TESTING [place] BEDSIDE Gluc POC 202 mg/dL 70 - 99 02/18 HI 1Interpretive [facility] GLUCOSE [place] /2012 Data: [facility] TESTING [facility] Upper Reportable Limit: 200 mg/dL. CHEMISTRY Ca Norm mgdL 4.76 mg/dL 4.65 - 02/18 Normal [facility] 5. [facility] CHEMISTRY Ca Ion mgdL 4.76 mg/dL 4.65 - 02/18 Normal [facility] . [facility] CHEMISTRY Ca Norm 1.19 1.16 - 02/18 Normal [facility] mMol/L 1. [facility] CHEMISTRY Ca Ion 1.19 1.16 - 02/18 Normal [facility] mMol/L 1. [facility] CHEMISTRY Calcium Lvl 8.4 mg/dL 8.5 - 10.5 02/18 LOW [facility] CHEMISTRY CO2 26 meq/L 24 - 32 02/18 Normal [facility] CHEMISTRY Chloride Lvl 107 meq/L 95 - 109 02/18 Normal [facility] CHEMISTRY Potassium Lvl 4.5 meq/L 3.5 - 5.1 02/18 Normal [facility] CHEMISTRY Sodium Lvl 142 meq/L 135 - 145 02/18 Normal [facility] CHEMISTRY Glucose Lvl 197 mg/dL 70 - 99 02/18 HI 7Interpretive Data: Adult reference range values reflect the clinical guidelines of the [place] [employer]. [facility] CHEMISTRY Creatinine 0.7 mg/dL 0.5 - 1.4 02/18 Normal [facility] CHEMISTRY BUN 14 mg/dL 7 - 02/18 Normal [facility] CHEMISTRY eGFR 114 02/18 NA 4Result Comment: The eGFR is calculated using the CKD-EPI formula. In most young, healthy individuals the eGFR will be > 90 mL/min/1.73m2. The eGFR declines with age. An eGFR of 60-89 may be normal in [facility] mL/min/1. some populations, particularly the elderly, for whom the CKD-EPI formula has not been extensively validated. Use of the eGFR is not recommended in the following populations: [address] Individuals with unstable creatinine concentrations, including patients and those with serious co-morbid conditions. Patients with extremes in muscle mass or diet. The data above are obtained from the National Kidney Disease Education Program (NKDEP) which additionally recommends that when the eGFR is used in patients with extremes of body mass index for purposes of drug dosing, the eGFR should be multiplied by the estimated BMI. CHEMISTRY AGAP 13.5 meq/L 10.0 - 02/18 Normal [facility] 20.0 [facility] CHEMISTRY Magnesium Lvl 2.1 mg/dL 1.8 - 2.4 02/18 Normal [facility] CHEMISTRY Phosphorus 2.5 mg/dL 2.5 - 4.5 02/18 Normal [facility] HEMATOLOGY Monocytes 6.5 % 2.0 - 12.0 02/18 Normal [facility] HEMATOLOGY Segs-Bands # 10.7 K/CMM 1.5 - 8.1 02/18 HI [facility] HEMATOLOGY Basophils 0.2 % 0.0 - 1.0 02/18 Normal [facility] HEMATOLOGY Segs 85.8 % 45.0 - 02/18 HI [place] 75.0 /2012 [facility] HEMATOLOGY Lymphocytes 7.5 % 20.0 - 07 LOW [place] 40.0 /2012 [facility] HEMATOLOGY Monocytes # 0.8 K/CMM 0.0 - 0.8 02/18 Normal [facility] HEMATOLOGY Lymphocytes # 0.9 K/CMM 1.0 - 5.5 02/18 LOW [facility] HEMATOLOGY MCHC 32.6 g/dL 32.0 - 02/18 Normal [facility] 36.0 [facility] HEMATOLOGY RDW 13.1 % 11.5 - 02/18 Normal [facility] 14.5 /2012 [facility] HEMATOLOGY MPV 9.8 fL 7.4 - 10.4 02/18 Normal [facility] HEMATOLOGY Platelet 229 K/CMM 133 - 450 02/18 Normal [facility] HEMATOLOGY MCV 95.5 fL 81.0 - 02/18 Normal [facility] 99.0 /2012 [facility] HEMATOLOGY Hct 33.0 % 36.0 - 02/18 [facility] [place] 48.0 /2012 [facility] HEMATOLOGY MCH 31.1 pg 27.0 - 02/18 HI [place] 31.0 [facility] HEMATOLOGY Hgb 10.8 g/dL 12.0 - 02/18 LOW [place] 16.0 [facility] HEMATOLOGY RBC 3.46 M/CMM 4.20 - 02/18 [facility] 5.40 /2013 [facility] HEMATOLOGY WBC 12.5 K/CMM 3.7 - 10.4 02/18 [facility] BEDSIDE Comment1 Notify 02/17 NA [facility] GLUCOSE RN/MD /2012 [facility] BEDSIDE Gluc POC 185 mg/dL 70 - 99 02/17 HI 2Interpretive [facility] GLUCOSE Lifscn Data: [facility] Upper Reportable Limit: 200 mg/dL. BEDSIDE Gluc POC 130 mg/dL 70 - 99 02/17 [place] 3Interpretive [facility] GLUCOSE Lifscn Data: [facility] Upper Reportable Limit: 200 mg/dL. BEDSIDE Comment1 Notify 02/17 NA [facility] GLUCOSE RN/ /2012 [facility] CHEMISTRY Phosphorus 3.4 mg/dL 2.5 - 4.5 02/17 Normal [facility] CHEMISTRY Magnesium Lvl 1.9 mg/dL 1.8 - 2.4 02/17 Normal [facility] CHEMISTRY AGAP 16.3 meq/L 10.0 - 02/17 Normal [facility] 20.0 [facility] CHEMISTRY Creatinine 0.6 mg/dL 0.5 - 1.4 02/17 Normal [facility] CHEMISTRY BUN 9 mg/dL 7 - 22 02/17 Normal [facility] CHEMISTRY Glucose Lvl 112 mg/dL 70 - 99 02/17 HI 8Interpretive Data: Adult reference range values reflect the clinical guidelines of the [employer]. [facility] CHEMISTRY Chloride Lvl 110 meq/L 95 - 109 02/17 [facility] CHEMISTRY Potassium Lvl 4.3 meq/L 3.5 - 5.1 02/17 Normal [facility]2012 [facility] CHEMISTRY Sodium Lvl 142 meq/L 135 - 145 02/17 Normal [facility] CHEMISTRY Calcium Lvl 8.3 mg/dL 8.5 - 10.5 02/17 LOW [facility] CHEMISTRY CO2 20 meq/L 24 - 32 02/17 LOW [facility] CHEMISTRY eGFR 120 02/17 NA 5Result Comment: The eGFR is calculated using the CKD-EPI formula. In most young, healthy individuals the eGFR will be > 90 mL/min/1.73m2. The eGFR declines with age. An eGFR of 60-89 may be normal in [facility] mL/min/1.7 /2012 some populations, particularly the elderly, for whom the CKD-EPI formula has not been extensively validated. Use of the eGFR is not recommended in the following populations: [place] [address] Center Individuals with unstable creatinine concentrations, including patients and those with serious co-morbid conditions. Patients with extremes in muscle mass or diet. The data above are obtained from the National Kidney Disease Education Program (NKDEP) which additionally recommends that when the eGFR is used in patients with extremes of body mass index for purposes of drug dosing, the eGFR should be multiplied by the estimated BMI. CHEMISTRY Ca Norm mgdL 4.76 mg/dL 4.65 - 02/17 Normal [facility] . [facility] CHEMISTRY Ca Norm 1.19 1.16 - 02/17 Normal [facility] mMol/L 09.03 [facility] CHEMISTRY Ca Ion mgdL 4.76 mg/dL 4.65 - 02/17 Normal [facility] . [facility] CHEMISTRY Ca Ion 1.19 1.16 - 02/17 Normal [facility] mMol/L 09.03 [facility] CHEMISTRY eGFR 97 02/17 NA 6Result Comment: The eGFR is calculated using the CKD-EPI formula. In most young, healthy individuals the eGFR will be > 90 mL/min/1.73m2. The eGFR declines with age. An eGFR of 60-89 may be normal in [facility] mL/min/1. some populations, particularly the elderly, for whom the CKD-EPI formula has not been extensively validated. Use of the eGFR is not recommended in the following populations: [address] Individuals with unstable creatinine concentrations, including patients and those with serious co-morbid conditions. Patients with extremes in muscle mass or diet. The data above are obtained from the National Kidney Disease Education Program (NKDEP) which additionally recommends that when the eGFR is used in patients with extremes of body mass index for purposes of drug dosing, the eGFR should be multiplied by the estimated BMI. CHEMISTRY Potassium Lvl 3.9 meq/L 3.5 - 5.1 02/17 Normal [facility] CHEMISTRY Chloride Lvl 114 meq/L 95 - 109 02/17 HI [facility] CHEMISTRY Sodium Lvl 145 meq/L 135 - 145 02/17 Normal [facility] CHEMISTRY Creatinine 0.8 mg/dL 0.5 - 1.4 02/17 Normal [facility] /2012 [facility] CHEMISTRY BUN 9 mg/dL 7 - 22 02/17 Normal [facility] CHEMISTRY Calcium Lvl 8.0 mg/dL 8.5 - 10.5 02/17 LOW [facility] CHEMISTRY CO2 23 meq/L 24 - 32 02/17 LOW [facility] CHEMISTRY Glucose Lvl 108 mg/dL 70 - 99 02/17 HI 9Interpretive Data: Adult reference range values reflect the clinical guidelines MH of the [place] [employer]. [facility] CHEMISTRY AGAP 11.9 meq/L 10.0 - 07 Normal [place] 20.0 /2012 [facility] HEMATOLOGY Segs 89.9 % 45.0 - 07/ HI [place] 75.0 /2012 [facility] HEMATOLOGY Lymphocytes 8.6 % 20.0 - 07 LOW [place] 40.0 /2012 [facility] HEMATOLOGY Basophils 0.3 % 0.0 - 1.0 07/ Normal [facility] HEMATOLOGY Segs-Bands # 6.2 K/CMM 1.5 - 8.1 07/ Normal [facility] HEMATOLOGY Lymphocytes # 0.6 K/CMM 1.0 - 5.5 07 LOW [facility] HEMATOLOGY Eosinophils 0.1 % 0.0 - 4.0 07/ Normal [facility] HEMATOLOGY Monocytes 1.1 % 2.0 - 12.0 07/ LOW [facility] HEMATOLOGY Monocytes # 0.1 K/CMM 0.0 - 0.8 02/17 Normal [facility] HEMATOLOGY Hct 34.3 % 36.0 - 07 LOW [place] 48.0 /2012 [facility] HEMATOLOGY MCV 95.7 fL 81.0 - 07 Normal [place] 99.0 /2012 [facility] HEMATOLOGY WBC 6.9 K/CMM 3.7 - 10.4 07 Normal /2012 [facility] HEMATOLOGY RDW 13.0 % 11.5 - 07/ Normal [place] 14.5 /2012 [facility] HEMATOLOGY MCHC 33.3 g/dL 32.0 - 07 Normal [place] 36.0 /2012 [facility] HEMATOLOGY Platelet 232 K/CMM 133 - 450 07/ Normal [facility] HEMATOLOGY MCH 31.9 pg 27.0 - 0716 HI [place] 31.0 /2012 [facility] HEMATOLOGY RBC 3.59 M/CMM 4.20 - 0716 LOW [place] 5.40 /2012 [facility] HEMATOLOGY Hgb 11.4 g/dL 12.0 - 07 LOW [place] 16.0 /2012 [facility] HEMATOLOGY MPV 9.1 fL 7.4 - 10.4 07/ Normal [facility] HEMATOLOGY PTT 33.5 s 22.9 - 07 Normal 12Interpretiv MH [place] 35.8 /2013 e Data: [facility] Therapeutic Range: 57 - 92 Seconds HEMATOLOGY INR 1.14 0.85 - 02/17 Normal 10Interpretive Data: RECOMMENDED RANGES FOR PROTIME INR: [facility] . 2.0-3.0 for most medical and surgical thromboembolic states. Medical 2.5-3.5 for artificial heart valves and recurrent embolism. Center INR SHOULD BE USED ONLY FOR PATIENTS ON STABLE ANTICOAGULANT THERAPY. HEMATOLOGY PT 14.8 s 12.0 - 02/17 [facility] [place] 14. [facility] BLOOD BANK Antibody Scrn Negative 02/16 Normal [facility] RESULTS Medical (02/16/2013 10:25:29) Center BLOOD BANK ABO/Rh O POS 02/16 Unknown [facility] HEMATOLOGY Lymphocytes 44.8 % 20.0 - 07 [facility] [place] 40.0 [facility] HEMATOLOGY Segs 36.8 % 45.0 - 07 LOW [place] 75.0 [facility] HEMATOLOGY Eosinophils 4.9 % 0.0 - 4.0 / [facility] HEMATOLOGY Monocytes 12.1 % 2.0 - 12.0 07/ HI [facility] HEMATOLOGY Basophils 1.4 % 0.0 - 1.0 / HI [facility] HEMATOLOGY Lymphocytes # 2.3 K/CMM 1.0 - 5.5 07/ Normal [facility] HEMATOLOGY Segs-Bands # 1.8 K/CMM 1.5 - 8.1 02/11 Normal [facility] HEMATOLOGY Monocytes # 0.6 K/CMM 0.0 - 0.8 / Normal [facility] HEMATOLOGY Eosinophils # 0.2 K/CMM 0.0 - 0.5 07/ Normal [facility] HEMATOLOGY Basophils # 0.1 K/CMM 0.0 - 0.2 / Normal [facility] HEMATOLOGY PTT 32.5 s 22.9 - 02/11 Normal 13Interpretiv [facility] 35. e Data: [facility] Therapeutic Range: 57 - 92 Seconds HEMATOLOGY PT 14.2 s 12.0 - 0710 Normal [place] 14. [facility] HEMATOLOGY INR 1.08 0.85 - 02/11 Normal 11Interpretive Data: RECOMMENDED RANGES FOR PROTIME INR: [facility] 1.17 /2012 2.0-3.0 for most medical and surgical thromboembolic states. Medical 2.5-3.5 for artificial heart valves and recurrent embolism. Center INR SHOULD BE USED ONLY FOR PATIENTS ON STABLE ANTICOAGULANT THERAPY. HEMATOLOGY MCHC 33.3 g/dL 32.0 - 07/10 Normal [facility] 36.0 /2012 [facility] HEMATOLOGY MPV 9.4 fL 7.4 - 10.4 07/ Normal /2012 [facility] HEMATOLOGY RDW 12.8 % 11.5 - 07/10 Normal [facility] 14.5 /2012 [facility] HEMATOLOGY Platelet 232 K/CMM 133 - 450 07/ Normal /2012 [facility] HEMATOLOGY WBC 5.0 K/CMM 3.7 - 10.4 07/ Normal /2012 [facility] HEMATOLOGY Hct 36.4 % 36.0 - 07/10 Normal [facility] 48.0 /2012 [facility] HEMATOLOGY MCV 94.7 fL 81.0 - 0710 Normal [facility] 99.0 /2012 [facility] HEMATOLOGY MCH 31.5 pg 27.0 - 07/10 HI [facility] 31.0 /2012 [facility] HEMATOLOGY Hgb 12.1 g/dL 12.0 - 0710 Normal [facility] 16.0 /2012 [facility] HEMATOLOGY RBC 3.85 M/CMM 4.20 - 07/10 LOW [facility] 5.40 /2013 [facility] Vital Signs Vital Sign Value Date Comments Source Systolic (mm Hg) 99 11/29/2015 [facility] [place] [facility] Diastolic (mm Hg) 53 11/29/2015 [facility] [place] [facility] Temperature Oral (F) 97.2 F 11/29/2015 [facility] [place] [facility] Respitory Rate 18 11/29/2015 [facility] [place] [facility] Heart Rate 53 11/29/2015 [facility] [place] [facility] Systolic (mm Hg) 99 11/29/2015 [facility] [place] [facility] Diastolic (mm Hg) 63 11/29/2015 [facility] [place] [facility] Systolic (mm Hg) 94 11/29/2015 [facility] [place] [facility] Diastolic (mm Hg) 53 11/29/2015 [facility] [place] [facility] Respitory Rate 18 11/29/2015 [facility] [place] [facility] Heart Rate 51 11/29/2015 [facility] [place] [facility] Temperature Oral (F) 97.6 F 11/29/2015 [facility] [place] [facility] Temperature Oral (F) 97 F 11/29/2015 [facility] [place] [facility] Heart Rate 52 11/29/2015 [facility] Respitory Rate 18 11/29/2015 [facility] [place] [facility] Weight 63.636 11/29/2015 [facility] [place] [facility] BMI Calculated 20.13 11/29/2015 [facility] [place] [facility] Height 177.8 cm 11/29/2015 [facility] [place] [facility] Heart Rate 58 03/10/2013 [facility] [place] [facility] Temperature Oral (F) 97.8 F 03/10/2013 [facility] Respitory Rate 16 03/10/2013 [facility] Diastolic (mm Hg) 65 03/10/2013 [facility] Systolic (mm Hg) 104 03/10/2013 [facility] [place] [facility] Heart Rate 47 03/10/2013 [facility] Respitory Rate 16 03/10/2013 [facility] [place] [facility] Temperature Oral (F) 97.9 F 03/10/2013 [facility] Diastolic (mm Hg) 66 03/10/2013 [facility] Systolic (mm Hg) 100 03/10/2013 [facility] [place] [facility] Respitory Rate 16 03/10/2013 [facility] [place] [facility] Heart Rate 92 03/10/2013 [facility] [place] [facility] Temperature Oral (F) 98.1 F 03/10/2013 [facility] Diastolic (mm Hg) 69 03/10/2013 [facility] Systolic (mm Hg) 103 03/10/2013 [facility] [place] [facility] Weight 56 03/09/2013 [facility] [place] [facility] Height 177.8 cm 03/09/2013 [facility] [place] [facility] Weight 56 03/07/2013 [facility] [place] [facility] Weight 56.818 03/07/2013 [facility] [place] [facility] Height 177.8 cm 03/07/2013 [facility] Systolic (mm Hg) 96 02/18/2013 [facility] Diastolic (mm Hg) 49 02/18/2013 [facility] Respitory Rate 18 02/18/2013 [facility] [place] [facility] Heart Rate 60 02/18/2013 [facility] [place] [facility] Temperature Oral (F) 97.6 F 02/18/2013 [facility] Diastolic (mm Hg) 63 02/18/2013 [facility] Systolic (mm Hg) 102 02/18/2013 [facility] Respitory Rate 18 02/18/2013 [facility] Heart Rate 53 02/18/2013 [facility] [place] [facility] Temperature Oral (F) 97.6 F 02/18/2013 [facility] Systolic (mm Hg) 99 02/18/2013 [facility] [place] [facility] Diastolic (mm Hg) 56 02/18/2013 [facility] [place] [facility] Respitory Rate 18 02/18/2013 [facility] [place] [facility] Heart Rate 58 02/18/2013 [facility] [place] [facility] Temperature Oral (F) 98.0 F 02/18/2013 [facility] [place] [facility] Weight 63.009 02/17/2013 [facility] [place] [facility] Height 177.8 cm 02/17/2013 [facility] [place] [facility] Height 162.4 cm 02/17/2013 [facility] [place] [facility] Weight 61.364 02/17/2013 [facility] [place] [facility] Height 177.8 cm 02/11/2013 [facility] [place] [facility] Weight 61.364 02/11/2013 [facility] Encounters Location Location Encounter Encounter Reason Attending ADM DC Status Source Details Type Number For Provider Date Date Visit [facility] Inpatient [id number] KASSIE VARGAS 02/16 02/18 Active [facility] /2012 [facility] Inpatient [id number] INCISION KASSIE VARGAS 03/09 03/10 Active [facility] /2012 [facility] PAIN,PUR Center ULENT DISCHARG E FROM WOUND Outpatient [id number] KASSIE VARGAS 08/30 [facility] [place] Outpatient [id number] KASSIE VARGAS 10/17 [facility] OBS [id number] [place] 11/28 11/28 [facility] /2015 [facility] Patient Center Outpatient [id number] AD[place]FO 12/17 [facility] Outpatient [id number] NIKOLAY VARGAS Cancel [facility] PER ABNER [id number] * Procedures Procedure Code Date Perfomer Comments Source Appendectomy [id number] [facility] [place] [facility] Augmentation [id number] [facility] Craniectomy<sup>1< [id number] Chiari [facility] /sup> [facility] Knee joint [id number] [facility] Oophorectomy [id number] [facility] Tubal ligation [id number] [facility] [place] [facility] Craniectomy [id number] 1Chiari [facility] <sup>1</sup> [facility]
--- OUTSIDE RECORDS SUMMARY | 2018-02-03 17:31 | XMS REPORT | CCD ---
:1980 Author Organization [facility] Care Team Providers Name Role Phone Pedro Wilkins Referring Provider Allergies, Adverse Reactions, Alerts Substance Reaction Status Esoterica with Sunscreen Active Problem List Condition Effective Dates Status Murmur Active Pain Active PUD - Peptic ulcer disease Active Medications Medication Instructions Start Date End Date Status HYDROcodone-ibuprofen 7.5 1 tab, PO, Q4H, PRN, for 02/16/2013 Ordered mg-200 mg oral tablet pain, Substitution Allowed, Maintenance, TAB FENTanyl patch 75 mcg/hr 1 patch, Route: TOP, 02/16/2013 02/18/2013 Discontinued Drug Form: ERFILM, Dosing Weight 61.364, kg, Q72H, STAT, Start date: 02/16/13 21:11:00, Duration: 30 day, Stop date: 03/15/13 21:11:00 dexamethasone 1 mg oral See Instructions, with food, 36 tab, Substitution Allowed 02/18/2013 Ordered tablet with food Pepcid 20 mg oral tablet 20 mg, 1 tab, PO, Daily, 02/18/2013 Ordered 50 tab, Substitution Allowed, TAB docusate sodium 100 mg 100 mg, 1 cap, PO, Q12H, 02/18/2013 Ordered oral capsule 50 cap, Substitution Allowed, CAP acetaminophen-hydrocodone 1 tab, PO, Q4H, PRN, 50 02/18/2013 Ordered 325 mg-10 mg oral tablet tab, Pain Score 4-6, Substitution Allowed, Maintenance, TAB magnesium sulfate 2 gm, 50 mL, Route: 02/17/2013 02/17/2013 Completed IVPB, Drug form: INJ, ONCE, Start date: 02/17/13 4:32:00, Stop date: 02/17/13 4:32:00 diphenhydrAMINE 12.5 mg, 0.25 mL, Route: 02/16/2013 02/16/2013 Discontinued IVP, Drug form: INJ, PRN, Dosing Weight 61.364, kg, PRN Itching, Start date: 02/16/13 18:44:00, Duration: 1 day, Stop date: 02/17/13 18:43:00 flumazenil 0.2 mg, 2 mL, Route: 02/16/2013 02/16/2013 Discontinued IVP, Drug form: INJ, PRN, Dosing Weight 61.364, kg, PRN Benzodiazepine Reversal, Initial dose, Start date: 02/16/13 18:44:00, Duration: 1 day, Stop date: 02/17/13 18:43:00 naloxone 0.04 mg, 0.1 mL, Route: 02/16/2013 02/16/2013 Discontinued IVP, Drug form: INJ, Q2MIN, Dosing Weight 61.364, kg, PRN Narcotic Reversal, Start date: 02/16/13 18:44:00, Duration: 8 doses or times, Stop date: 02/17/13 0:00:00 morphine Sulfate 2 mg, 1 mL, Route: IVP, 02/16/2013 02/16/2013 Discontinued Drug form: INJ, Q5Min, Dosing Weight 61.364, kg, PRN Pain Score 4-6, Start date: 02/16/13 18:44:00, Duration: 5 doses or times, Stop date: 02/17/13 0:00:00 ondansetron 4 mg, 2 mL, Route: IVP, 02/16/2013 02/16/2013 Discontinued Drug form: INJ, ONCE, Dosing Weight 61.364, kg, PRN Nausea & Vomiting, Start date: 02/16/13 18:44:00 promethazine 6.25 mg, 0.25 mL, Route: 02/16/2013 02/16/2013 Completed IVPB, Drug form: INJ, ONCE, Dosing Weight 61.364, kg, PRN Nausea & Vomiting, Start date: 02/16/13 18:44:00 Dilaudid 0.5 mg, Route: IV, ONCE, 02/16/2013 02/16/2013 Completed Dosing Weight 61.364, kg, PRN Pain, Start date: 02/16/13 20:04:00 cefazolin 2 gm, 50 mL, Route: 02/16/2013 02/18/2013 Discontinued IVPB, Drug form: INJ, PRE OP, Start date: 02/16/13 3:00:00, Duration: 1 day, Stop date: 02/17/13 2:59:00 Xanax 0.5 mg oral tablet 0.5 mg, 1 tab, Route: 02/16/2013 02/18/2013 Discontinued PO, Drug form: TAB, PRE OP, Dosing Weight 61.364, kg, Start date: 02/16/13 11:00:00, Duration: 1 doses or times, Stop date: 02/17/13 0:00:00 Pepcid 20 mg oral tablet 20 mg, 1 tab, Route: PO, 02/18/2013 02/18/2013 Discontinued Drug form: TAB, Daily, Dosing Weight 63.009, kg, Start date: 02/18/13 9:00:00, Duration: 30 day, Stop date: 03/19/13 9:00:00 Dilaudid 0.5 mg, 0.25 mL, Route: 02/16/2013 02/16/2013 Completed IVP, Drug form: INJ, ONCE, Dosing Weight 61.364, kg, Priority: STAT, Start date: 02/16/13 22:20:00, Stop date: 02/16/13 22:20:00 Zofran 4 mg oral tablet 4 mg, 1 tab, PO, ONCE, 02/18/2013 Ordered 10 tab, Substitution Allowed, TAB cefazolin 1 gm, Route: IVPB, Drug 02/16/2013 02/16/2013 Completed form: PDR/INJ, [id number], Start date: 02/16/13 22:30:00, Duration: 1 doses or times, Stop date: 02/16/13 22:30:00 Phenergan 12.5 mg, 0.5 mL, Route: 02/17/2013 02/18/2013 Discontinued IVPB, Drug form: INJ, Q4H, Dosing Weight 63.009, kg, PRN Nausea & Vomiting, Start date: 02/17/13 18:19:00, Duration: 30 day, Stop date: 03/19/13 18:18:00 Dextrose 50% Syringe 12.5 gm, 25 mL, Route: 02/16/2013 02/18/2013 Discontinued IVP, Drug Form: INJ, Dosing Weight 61.364, kg, PRN, PRN Abnormal Lab Result, Start date: 02/16/13 13:35:00, Duration: 30 day, Stop date: 03/18/13 13:34:00 Dextrose 50% Syringe 6.25 gm, 12.5 mL, Route: 02/16/2013 02/18/2013 Discontinued IVP, Drug Form: INJ, Dosing Weight 61.364, kg, PRN, PRN Abnormal Lab Result, Start date: 02/16/13 13:35:00, Duration: 30 day, Stop date: 03/18/13 13:34:00 insulin regular 100 3 unit, 0.03 mL, Route: 02/16/2013 02/18/2013 Discontinued units/mL human recombinant SUB-Q, Drug form: SOLN, PRN, Dosing Weight 61.364, kg, PRN Abnormal Lab Result, Start date: 02/16/13 13:35:00, Duration: 30 day, Stop date: 03/18/13 13:34:00 insulin regular 100 5 unit, 0.05 mL, Route: 02/16/2013 02/18/2013 Discontinued units/mL human recombinant SUB-Q, Drug form: SOLN, PRN, Dosing Weight 61.364, kg, PRN Abnormal Lab Result, Start date: 02/16/13 13:35:00, Duration: 30 day, Stop date: 03/18/13 13:34:00 Dextrose 50% Syringe 25 gm, 50 mL, Route: 02/16/2013 02/18/2013 Discontinued IVP, Drug Form: INJ, Dosing Weight 61.364, kg, PRN, PRN Abnormal Lab Result, Start date: 02/16/13 13:35:00, Duration: 30 day, Stop date: 03/18/13 13:34:00 insulin regular 100 7 unit, 0.07 mL, Route: 02/16/2013 02/18/2013 Discontinued units/mL human recombinant SUB-Q, Drug form: SOLN, PRN, Dosing Weight 61.364, kg, PRN Abnormal Lab Result, Start date: 02/16/13 13:35:00, Duration: 30 day, Stop date: 03/18/13 13:34:00 Saline Flush 0.9% 5 ml, Route: IVP, Drug 02/16/2013 02/18/2013 Discontinued Form: INJ, Dosing Weight 61.364, kg, Q12H, Start date: 02/16/13 21:00:00, Duration: 30 day, Stop date: 03/18/13 9:00:00 Saline Flush 0.9% 5 ml, Route: IVP, Drug 02/16/2013 02/18/2013 Discontinued Form: INJ, Dosing Weight 61.364, kg, PRN, PRN Line Flush, Start date: 02/16/13 13:35:00, Duration: 30 day, Stop date: 03/18/13 13:34:00 docusate 100 mg, 1 cap, Route: 02/16/2013 02/18/2013 Discontinued PO, Drug form: CAP, Q12H, Dosing Weight 61.364, kg, Start date: 02/16/13 21:00:00, Duration: 30 day, Stop date: 03/18/13 9:00:00 senna 8.6 mg, 1 tab, Route: 02/16/2013 02/18/2013 Discontinued PO, Drug Form: TAB, Dosing Weight 61.364, kg, Q12H, Start date: 02/16/13 21:00:00, Duration: 30 day, Stop date: 03/18/13 9:00:00 morphine Sulfate 1 mg, 0.5 mL, Route: 02/16/2013 02/18/2013 Discontinued IVP, Drug form: INJ, Q1H, Dosing Weight 61.364, kg, PRN Pain Score 7-10, Start date: 02/16/13 13:35:00, Duration: 30 day, Stop date: 03/18/13 13:34:00 acetaminophen-hydrocodone 2 tab, Route: PO, Drug 02/16/2013 02/18/2013 Discontinued 325 mg-10 mg oral tablet Form: TAB, Dosing Weight 61.364, kg, Q4H, PRN Pain Score 7-10, Start date: 02/16/13 13:35:00, Duration: 30 day, Stop date: 03/18/13 13:34:00 acetaminophen-hydrocodone 1 tab, Route: PO, Drug 02/16/2013 02/18/2013 Discontinued 325 mg-10 mg oral tablet Form: TAB, Dosing Weight 61.364, kg, Q4H, PRN Pain Score 4-6, Start date: 02/16/13 13:35:00, Duration: 30 day, Stop date: 03/18/13 13:34:00 cefazolin (SCIP) 1 gm, Route: IVPB, Drug 02/16/2013 02/16/2013 Deleted form: INJ, Q8H, Dosing Weight 61.364, kg, Start date: 02/16/13 16:00:00, Duration: 1 doses or times, Stop date: 02/16/13 16:00:00 dexamethasone 4 mg, 1 tab, Route: PO, 02/16/2013 02/18/2013 Discontinued Drug form: TAB, Q6H, Dosing Weight 61.364, kg, Start date: 02/16/13 18:00:00, Duration: 30 day, Stop date: 03/18/13 12:00:00 famotidine 20 mg, 2 mL, Route: IVP, 02/16/2013 02/17/2013 Discontinued Drug form: INJ, Q12H, Dosing Weight 61.364, kg, Start date: 02/16/13 21:00:00, Duration: 30 day, Stop date: 03/18/13 9:00:00 dexamethasone 10 mg, 2.5 mL, Route: 02/16/2013 02/16/2013 Completed IVP, Drug form: INJ, ONCE, Dosing Weight 61.364, kg, Start date: 02/16/13 13:35:00, Stop date: 02/16/13 13:35:00 bisacodyl 10 mg, 1 supp, Route: 02/16/2013 02/16/2013 Discontinued OK, Drug form: SUPP, Daily, Dosing Weight 61.364, kg, PRN Constipation, Start date: 02/16/13 13:35:00, Duration: 30 day, Stop date: 03/18/13 13:34:00 Sodium Chloride 0.9% IV 1,000 mL, Rate: 50 02/16/2013 02/16/2013 Discontinued 1,000 mL ml/hr, Infuse over: 20 hr, Route: IV, Dosing Weight 61.364 kg, Total Volume: 1,000, Start date: 02/16/13 13:35:00, Duration: 30 day, Stop date: 03/18/13 13:34:00 Sodium Chloride 0.9% 250 mL, Rate: 500 ml/hr, 02/16/2013 02/16/2013 Completed (Bolus) IV 250 mL Infuse over: 30 minutes, Route: IV, Dosing Weight 61.364 kg, Total Volume: 250, Priority: STAT, Start date: 02/16/13 13:35:00, Duration: 1 doses or times, Stop date: 02/16/13 14:04:00 Vital Signs Most recent to oldest 1 2 3 [Reference Range]: Height 177.8 cm 162.4 cm 177.8 cm (02/17/2013 00:53:00) (02/16/2013 21:08:00) (02/11/2013 10:04:00) Temperature Oral 97.6 DegF 97.6 DegF 98.0 DegF [96.4-99.1 DegF] (02/18/2013 07:30:00) (02/18/2013 03:04:00) (02/18/2013 00: 33:00) Systolic Blood Pressure 96 mmHg 102 mmHg 99 mmHg [90-140 mmHg] (02/18/2013 07:30:00) (02/18/2013 03:04:00) (02/18/2013 00:33: 00) Diastolic Blood Pressure 49 mmHg 63 mmHg 56 mmHg [60-90 mmHg] *LOW* (02/18/2013 03:04:00) *LOW* (02/18/2013 07:30:00) (02/18/2013 00:33:00) Respiratory Rate [14-20 18 BRMIN 18 BRMIN 18 BRMIN BRMIN] (02/18/2013 07:30:00) (02/18/2013 03:04:00) (02/18/2013 00:33:00) Peripheral Pulse Rate 60 bpm 53 bpm 58 bpm [60-100 bpm] (02/18/2013 07:30:00) *LOW* *LOW* (02/18/2013 03:04:00) (02/18/2013 00:33:00) Weight 63.009 kg 61.364 kg 61.364 kg (02/17/2013 00:53:00) (02/16/2013 21:08:00) (02/11/2013 10:04:00) Results BEDSIDE GLUCOSE TESTING Most recent to oldest 1 2 3 [Reference Range]: Gluc POC Lifscn [70-99 202 mg/dL 1 185 mg/dL 2 130 mg/dL 3 mg/dL] *HI* *HI* *HI* (02/18/2013 05:44:00) (02/17/2013 12:31:00) (02/17/2013 07:55:00) Comment1 Notify RN/MD Notify RN/MD Notify RN/MD *NA* *NA* *NA* (02/18/2013 05:44:00) (02/17/2013 12:31:00) (02/17/2013 03:11:00) 1Interpretive Data: Upper Reportable Limit: 200 mg/dL.2Interpretive Data: Upper Reportable Limit: 200 mg/dL.3Interpretive Data: Upper Reportable Limit: 200 mg/dL.BLOOD BANK RESULTS Most recent to oldest [Reference Range]: 1 2 3 ABO/Rh O POS *Unknown* (02/16/2013 10:25:29) Antibody Scrn Negative (02/16/2013 10:25:29) CHEMISTRY Most recent to oldest 1 2 3 [Reference Range]: Sodium Lvl [135-145 mEq/L] 142 mEq/L 142 mEq/L 145 mEq/L (02/18/2013 01:54:00) (02/17/2013 00:10:00) (02/16/2013 19:05:00) Potassium Lvl [3.5-5.1 4.5 mEq/L 4.3 mEq/L 3.9 mEq/L mEq/L] (02/18/2013 01:54:00) (02/17/2013 00:10:00) (02/16/2013 19:05:00) Chloride Lvl [95-109 mEq/L] 107 mEq/L 110 mEq/L 114 mEq/L (02/18/2013 01:54:00) *HI* *HI* (02/17/2013 00:10:00) (02/16/2013 19:05:00) CO2 [24-32 mEq/L] 26 mEq/L 20 mEq/L 23 mEq/L (02/18/2013 01:54:00) *LOW* *LOW* (02/17/2013 00:10:00) (02/16/2013 19:05:00) AGAP [10.0-20.0 mEq/L] 13.5 mEq/L 16.3 mEq/L 11.9 mEq/L (02/18/2013 01:54:00) (02/17/2013 00:10:00) (02/16/2013 19:05:00) Creatinine Lvl [0.5-1.4 0.7 mg/dL 0.6 mg/dL 0.8 mg/dL mg/dL] (02/18/2013 01:54:00) (02/17/2013 00:10:00) (02/16/2013 19:05:00) eGFR 114 mL/min/1.73m2 4 120 mL/min/1.73m2 5 97 mL/min/1.73m2 6 *NA* *NA* *NA* (02/18/2013 01:54:00) (02/17/2013 00:10:00) (02/16/2013 19:05:00) BUN [7-22 mg/dL] 14 mg/dL 9 mg/dL 9 mg/dL (02/18/2013 01:54:00) (02/17/2013 00:10:00) (02/16/2013 19:05:00) Glucose Lvl [70-99 mg/dL] 197 mg/dL 7 112 mg/dL 8 108 mg/dL 9 *HI* *HI* *HI* (02/18/2013 01:54:00) (02/17/2013 00:10:00) (02/16/2013 19:05:00) Calcium Lvl [8.5-10.5 8.4 mg/dL 8.3 mg/dL 8.0 mg/dL mg/dL] *LOW* *LOW* *LOW* (02/18/2013 01:54:00) (02/17/2013 00:10:00) (02/16/2013 19:05:00) Phosphorus [2.5-4.5 mg/dL] 2.5 mg/dL 3.4 mg/dL (02/18/2013 01:54:00) (02/17/2013 00:10:00) Magnesium Lvl [1.8-2.4 2.1 mg/dL 1.9 mg/dL mg/dL] (02/18/2013 01:54:00) (02/17/2013 00:10:00) Ca Ion mgdL [4.65-5.20 4.76 mg/dL 4.76 mg/dL mg/dL] (02/18/2013 01:54:00) (02/17/2013 00:10:00) Ca Ion [1.16-1.30 mMol/L] 1.19 mMol/L 1.19 mMol/L (02/18/2013:54:00) (02/17/2013 00:10:00) Ca Norm [1.16-1.30 mMol/L] 1.19 mMol/L 1.19 mMol/L (02/18/2013 01:54:00) (02/17/2013 00:10:00) Ca Norm mgdL [4.65-5.20 4.76 mg/dL 4.76 mg/dL mg/dL] (02/18/2013 01:54:00) (02/17/2013 00:10:00) 4Result Comment: The eGFR is calculated using the CKD-EPI formula. In most young , healthy individualsthe eGFR will be >90 mL/min/1.73m2. The eGFR declines with age. An eGFR of 60-89 may be normal in some populations, particularly the elderly, for whom the CKD-EPI formula has not been extensively validated. Use of the eGFR is not recommended in the following populations: Individuals with unstable creatinine concentrations, including patients and those with serious co-morbid conditions. Patients with extremes in muscle mass or diet. The data above are obtained from the National Kidney Disease Education Program ( NKDEP) which additionally recommends that when the eGFR is used in patients with extremes of body mass index for purposesof drug dosing, the eGFR should be multiplied by the estimated BMI.5Result Comment: The eGFR is calculated using the CKD-EPI formula. In most young, healthy individualsthe eGFR will be >90 mL/ min/1.73m2. The eGFR declines with age. An eGFR of 60-89 may be normal in some populations, particularly the elderly, for whom the CKD-EPI formula has not been extensively validated. Use of the eGFR is not recommended in the following populations: Individuals with unstable creatinine concentrations, including patients and those with serious co-morbid conditions. Patients with extremes in muscle mass or diet. The data above are obtained from the National Kid[employer] Disease Education Program ( NKDEP) which additionally recommends that when the eGFR is used in patients with extremes of body mass index for purposesof drug dosing, the eGFR should be multiplied by the estimated BMI.6Result Comment: The eGFR is calculated using the CKD-EPI formula. In most young, healthy individualsthe eGFR will be >90 mL/ min/1.73m2. The eGFR declines with age. An eGFR of 60-89 may be normal in some populations, particularly the elderly, for whom the CKD-EPI formula has not been extensively validated. Use of the eGFR is not recommended in the following populations: Individuals with unstable creatinine concentrations, including patients and those with serious co-morbid conditions. Patients with extremes in muscle mass or diet. The data above are obtained from the National Kidney Disease Education Program ( NKDEP) which additionally recommends that when the eGFR is used in patients with extremes of body mass index for purposesof drug dosing, the eGFR should be multiplied by the estimated BMI.7Interpretive Data: Adult reference range values reflect the clinical guidelines of the [place] [employer].8Interpretive Data: Adult reference range values reflect the clinical guidelines of the [place] [employer].9Interpretive Data: Adult reference range values reflect the clinical guidelines of the [place] [employer].HEMATOLOGY Most recent to oldest 1 2 3 [Reference Range]: WBC [3.7-10.4 K/CMM] 12.5 K/CMM 6.9 K/CMM 5.0 K/CMM *HI* (02/16/2013 19:05:00) (02/11/2013 08:55:00) (02/18/2013 01:54:00) RBC [4.20-5.40 M/CMM] 3.46 M/CMM 3.59 M/CMM 3.85 M/CMM *LOW* *LOW* *LOW* (02/18/2013 01:54:00) (02/16/2013 19:05:00) (02/11/2013 08:55:00) Hgb [12.0-16.0 g/dL] 10.8 g/dL 11.4 g/dL 12.1 g/dL *LOW* *LOW* (02/11/2013 08:55:00) (02/18/2013 01:54:00) (02/16/2013 19:05:00) Hct [36.0-48.0 %] 33.0 % 34.3 % 36.4 % *LOW* *LOW* (02/11/2013 08:55:00) (02/18/2013 01:54:00) (02/16/2013 19:05:00) MCV [81.0-99.0 fL] 95.5 fL 95.7 fL 94.7 fL (02/18/2013 01:54:00) (02/16/2013 19:05:00) (02/11/2013 08:55:00) MCH [27.0-31.0 pg] 31.1 pg 31.9 pg 31.5 pg *HI* *HI* *HI* (02/18/2013 01:54:00) (02/16/2013 19:05:00) (02/11/2013 08:55:00) MCHC [32.0-36.0 g/dL] 32.6 g/dL 33.3 g/dL 33.3 g/dL (02/18/2013 01:54:00) (02/16/2013 19:05:00) (02/11/2013 08:55:00) RDW [11.5-14.5 %] 13.1 % 13.0 % 12.8 % (02/18/2013 01:54:00) (02/16/2013 19:05:00) (02/11/2013 08:55:00) Platelet [133-450 K/CMM] 229 K/CMM 232 K/CMM 232 K/CMM (02/18/2013 01:54:00) (02/16/2013 19:05:00) (02/11/2013 08:55:00) MPV [7.4-10.4 fL] 9.8 fL 9.1 fL 9.4 fL (02/18/2013 01:54:00) (02/16/2013 19:05:00) (02/11/2013 08:55:00) Segs [45.0-75.0 %] 85.8 % 89.9 % 36.8 % *HI* *HI* *LOW* (02/18/2013 01:54:00) (02/16/2013 19:05:00) (02/11/2013 08:55:00) Lymphocytes [20.0-40.0 %] 7.5 % 8.6 % 44.8 % *LOW* *LOW* *HI* (02/18/2013 01:54:00) (02/16/2013 19:05:00) (02/11/2013 08:55:00) Monocytes [2.0-12.0 %] 6.5 % 1.1 % 12.1 % (02/18/2013 01:54:00) *LOW* *HI* (02/16/2013 19:05:00) (02/11/2013 08:55:00) Eosinophils [0.0-4.0 %] 0.1 % 4.9 % (02/16/2013 19:05:00) *HI* (02/11/2013 08:55:00) Basophils [0.0-1.0 %] 0.2 % 0.3 % 1.4 % (02/18/2013 01:54:00) (02/16/2013 19:05:00) *HI* (02/11/2013 08:55:00) Segs-Bands # [1.5-8.1 10.7 K/CMM 6.2 K/CMM 1.8 K/CMM K/CMM] *HI* (02/16/2013 19:05:00) (02/11/2013 08:55:00) (02/18/2013 01:54:00) Lymphocytes # [1.0-5.5 0.9 K/CMM 0.6 K/CMM 2.3 K/CMM K/CMM] *LOW* *LOW* (02/11/2013 08:55:00) (02/18/2013 01:54:00) (02/16/2013 19:05:00) Monocytes # [0.0-0.8 0.8 K/CMM 0.1 K/CMM 0.6 K/CMM K/CMM] (02/18/2013 01:54:00) (02/16/2013 19:05:00) (02/11/2013 08:55:00) Eosinophils # [0.0-0.5 0.2 K/CMM K/CMM] (02/11/2013 08:55:00) Basophils # [0.0-0.2 0.1 K/CMM K/CMM] (02/11/2013 08:55:00) PT [12.0-14.7 seconds] 14.8 seconds 14.2 seconds *HI* (02/11/2013 08:55:00) (02/16/2013 19:05:00) INR [0.85-1.17] 1.14 10 1.08 11 (02/16/2013 19:05:00) (02/11/2013 08:55:00) PTT [22.9-35.8 seconds] 33.5 seconds 12 32.5 seconds 13 (02/16/2013 19:05:00) (02/11/2013 08:55:00) 10Interpretive Data: RECOMMENDED RANGES FOR PROTIME INR: 2.0-3.0 for most medical and surgical thromboembolic states. 2.5-3.5 for artificial heart valves and recurrent embolism. INR SHOULD BE USED ONLY FOR PATIENTS ON STABLE ANTICOAGULANT THERAPY.11Interpretive Data: RECOMMENDED RANGES FOR PROTIME INR: 2.0-3.0 for most medical and surgical thromboembolic states. 2.5-3.5 for artificial heart valves and recurrent embolism. INR SHOULD BE USED ONLY FOR PATIENTS ON STABLE ANTICOAGULANT THERAPY.12Interpretive Data: Heparin Therapeutic Range: 57 - 92 [id number] Data: Heparin Therapeutic Range: 57 - 92 Seconds
--- OUTSIDE RECORDS SUMMARY | 2018-02-03 17:31 | XMS REPORT | CCD ---
:1980 Author Organization [facility] Care Team Providers Name Role Phone Pedro Wilkins Consulting Provider Allergies, Adverse Reactions, Alerts Substance Reaction Status Esoterica with Sunscreen Active Problem List Condition Effective Dates Status Chiari malformation Resolved Murmur Active Neck pain Resolved Pain Active PUD - Peptic ulcer disease Active Medications Medication Instructions Start Date End Date Status Lyrica 100 mg, 1 cap, Route: PO, 03/10/2013 03/10/2013 Discontinued Drug form: CAP, Q8H, Dosing Weight 56, kg, Start date: 03/10/13 0:00:00, Duration: 30 day, Stop date: 04/08/13 16:00:00 Lyrica 300 mg, 3 cap, Route: PO, 03/09/2013 03/09/2013 Completed Drug form: CAP, ONCE, Dosing Weight 56, kg, Start date: 03/09/13 15:19:00, Stop date: 03/09/13 15:19:00 tramadol 100 mg, 2 tab, Route: PO, 03/09/2013 03/10/2013 Discontinued Drug form: TAB, Q6H, Dosing Weight 56, kg, Start date: 03/09/13 18:00:00, Duration: 30 day, Stop date: 04/08/13 12:00:00 Remove - lidocaine 1 patch, Route: TOP, 03/10/2013 03/10/2013 Discontinued topical patch Daily, Drug form: ERFILM, Start date: 03/10/13 5:00:00, Duration: 30 day, Stop date: 04/08/13 5:00:00 cefepime 1 gm, Route: IVPB, Drug 03/07/2013 03/10/2013 Discontinued form: INJ, ABXQ8H, Dosing Weight 56.818, kg, (CrCl >/=50 ml/min), Start date: 03/07/13 19:00:00, Duration: 30 day, Stop date: 04/06/13 11:00:00 HYDROmorphone 0.5mg/mL 15 mg, 30 mL, Route: IV, 03/09/2013 03/10/2013 Discontinued [employer] DIRECTOR (15mg/30 mL) 15 mg [employer] DIRECTOR Dose: 0.2 mg, [employer] DIRECTOR Lockout: 8 minutes, 4 Hour Limit (In MG): 6, Drug Form: INJ, Continuous, STAT, Start date: 03/09/13 16:20:00, Duration: 30 day, Stop date: 04/08/13 16:19:00 vancomycin + Sodium 1.25 gm, Route: IV, 03/07/2013 03/10/2013 Discontinued Chloride 0.9% IV 250 mL [id number], Dosing Weight 56.818, kg, Start date: 03/07/13 20:00:00, Stop date: 04/06/13 8:00:00 ondansetron 4 mg, 2 mL, Route: IVP, 03/09/2013 03/10/2013 Discontinued Drug form: INJ, ONCE, Dosing Weight 56, kg, PRN Nausea & Vomiting, Start date: 03/09/13 12:05:00 flumazenil 0.2 mg, 2 mL, Route: IVP, 03/09/2013 03/10/2013 Discontinued Drug form: INJ, PRN, Dosing Weight 56, kg, PRN Benzodiazepine Reversal, Initial dose, Start date: 03/09/13 12:05:00, Duration: 30 day, Stop date: 04/08/13 12:04:00 naloxone 0.04 mg, 0.1 mL, Route: 03/09/2013 03/10/2013 Discontinued IVP, Drug form: INJ, Q2MIN, Dosing Weight 56, kg, PRN Narcotic Reversal, Start date: 03/09/13 12:05:00, Duration: 8 doses or times, Stop date: Limited # of times hydromorphone 0.5 mg, 0.25 mL, Route: 03/09/2013 03/09/2013 Discontinued IVP, Drug form: INJ, Q5Min, Dosing Weight 56, kg, PRN Pain Score 7-10, Start date: 03/09/13 12:05:00, Duration: 5 doses or times, Stop date: Limited # of times Dilaudid 2 mg, 1 mL, Route: IV, 03/09/2013 03/09/2013 Completed Drug form: INJ, Q2H, Dosing Weight 56, kg, PRN Pain, Start date: 03/09/13 15:47:00, Stop date: 03/09/13 21:00:00 Saline Flush 0.9% 5 ml, Route: IVP, Drug 03/07/2013 03/10/2013 Discontinued Form: INJ, Dosing Weight 56.818, kg, PRN, PRN Line Flush, Start date: 03/07/13 17:42:00, Duration: 30 day, Stop date: 04/06/13 17:41:00 Saline Flush 0.9% 5 ml, Route: IVP, Drug 03/07/2013 03/10/2013 Discontinued Form: INJ, Dosing Weight 56.818, kg, Q12H, Start date: 03/07/13 21:00:00, Duration: 30 day, Stop date: 04/06/13 9:00:00 Sodium Chloride 0.9% IV 1,000 mL, Rate: 50 ml/hr, 03/07/2013 03/10/2013 Discontinued 1,000 mL Infuse over: 20 hr, Route: IV, Dosing Weight 56.818 kg, Total Volume: 1,000, Start date: 03/07/13 17:42:00, Duration: 30 day, Stop date: 04/06/13 17:41:00 tramadol 50 mg, 1 tab, Route: PO, 03/07/2013 03/09/2013 Discontinued Drug form: TAB, Q4H, Dosing Weight 56.818, kg, PRN Pain Score 1-3, Start date: 03/07/13 17:42:00, Duration: 30 day, Stop date: 04/06/13 17:41:00 acetaminophen-hydrocodone 2 tab, Route: PO, Drug 03/07/2013 03/09/2013 Discontinued 325 mg-10 mg oral tablet Form: TAB, Dosing Weight 56.818, kg, Q4H, PRN Pain Score 7-10, Start date: 03/07/13 17:42:00, Duration: 30 day, Stop date: 04/06/13 17:41:00 acetaminophen-hydrocodone 1 tab, Route: PO, Drug 03/07/2013 03/10/2013 Discontinued 325 mg-10 mg oral tablet Form: TAB, Dosing Weight 56.818, kg, Q4H, PRN Breakthrough Pain, Start date: 03/07/13 17:42:00, Stop date: 04/06/13 17:41:00 Keflex 500 mg oral 500 mg, 1 cap, PO, QID, 03/10/2013 03/24/2013 Ordered capsule 56 cap, Substitution Allowed, CAP Omnipaque 350mg/ml 98 mL, Route: IVP, Drug Form: SOLN, Dosing Weight 56.818, kg, ONCALL, STAT, Start date: 03/07/13 17:10:00, Duration: 1 doses or times, Weight=95 - 109kg -- "To be infused by Radiology Staff ONLY" 03/07/20132012 Completed Weight=95 - 109kg -- "To be infused by Radiology Staff ONLY" Zofran 4 mg, 2 mL, Route: IVP, 03/07/2013 03/07/2013 Completed Drug form: INJ, ONCE, Dosing Weight 56.818, kg, Priority: STAT, Start date: 03/07/13 16:14:00, Stop date: 03/07/13 16:14:00 [place] 10/325 oral tablet 1 tab, Route: PO, Drug 03/09/2013 03/10/2013 Discontinued Form: TAB, Dosing Weight 56, kg, Q4H, Start date: 03/09/13 16:00:00, Duration: 30 day, Stop date: 04/08/13 12:00:00 morphine Sulfate 4 mg, 1 mL, Route: IVP, 03/07/2013 03/07/2013 Completed Drug form: INJ, ONCE, Dosing Weight 56.818, kg, Priority: STAT, Start date: 03/07/13 16:13:00, Stop date: 03/07/13 16:13:00 ibuprofen 400 mg oral 800 mg, 2 tab, Route: PO, 03/09/2013 03/10/2013 Discontinued tablet Drug form: TAB, Q6H, Dosing Weight 56, kg, PRN Pain, Start date: 03/09/13 17:32:00, Duration: 30 day, Stop date: 04/08/13 17:31:00 Celebrex 200 mg, 2 cap, Route: PO, 03/10/2013 03/10/2013 Discontinued Drug form: CAP, Q12H, Dosing Weight 56, kg, Start date: 03/10/13 4:00:00, Duration: 30 day, Stop date: 04/08/13 16:00:00 Phenergan 25 mg, 1 tab, Route: PO, 03/09/2013 03/10/2013 Discontinued Drug form: TAB, Q6H, Dosing Weight 56, kg, PRN as needed for nausea/vomiting, Start date: 03/09/13 11:43:00, Duration: 30 day, Stop date: 04/08/13 11:42:00 Zofran 4 mg, 1 tab, Route: PO, 03/09/2013 03/09/2013 Ordered Drug form: TAB, ONCE, Dosing Weight 56, kg, Start date: 03/09/13 11:43:00, Stop date: 03/09/13 11:43:00 Keflex 500 mg oral 500 mg, 1 cap, PO, QID, 03/10/2013 03/17/2013 Ordered capsule 28 cap, Substitution Allowed, CAP acetaminophen-hydrocodone 1 tab, PO, Q4H, PRN, 50 03/10/2013 Ordered 325 mg-10 mg oral tablet tab, Pain Score 4-6, Substitution Allowed, Maintenance, TAB Lidoderm 5% topical film 1 patch, Route: TOP, Daily, Drug form: FILM, on 12 hrs and off 12 hrs, Start date: 03/09/13 17:00:00, Duration: 30 day, Stop date: 04/07/13 17:00:00, Remove after 12 hours 03/09/2013 03/10/2013 Discontinued (patch) Remove after 12 hours Robaxin 1,000 mg, 2 tab, Route: 03/09/2013 03/10/2013 Discontinued PO, Drug form: TAB, Q8H, Dosing Weight 56, kg, Start date: 03/09/13 16:00:00, Duration: 30 day, Stop date: 04/08/13 8:00:00 morphine Sulfate 1 mg, 0.5 mL, Route: IV, 03/07/2013 03/09/2013 Discontinued Drug form: INJ, Q2H, Dosing Weight 56, kg, PRN as needed for pain, Start date: 03/07/13 20:48:00, Duration: 30 day, Stop date: 04/06/13 20:47:00 Celebrex 200 mg, Route: PO, Drug 03/09/2013 03/09/2013 Canceled form: CAP, BID, Dosing Weight 56, kg, Start date: 03/09/13 17:00:00, Duration: 30 day, Stop date: 04/08/13 9:00:00 Keflex 500 mg, 1 cap, Route: PO, 03/07/2013 03/07/2013 Discontinued Drug form: CAP, Q6H, Dosing Weight 56.818, kg, Start date: 03/07/13 18:00:00, Duration: 30 day, Stop date: 04/06/13 12:00:00 Celebrex 400 mg, 4 cap, Route: PO, 03/09/2013 03/09/2013 Completed Drug form: CAP, ONCE, Dosing Weight 56, kg, Start date: 03/09/13 15:20:00, Stop date: 03/09/13 15:20:00 Vital Signs Most recent to oldest 1 2 3 [Reference Range]: Height 177.8 cm 177.8 cm (03/09/2013 11:42:00) (03/07/2013 15:06:00) Temperature Oral 97.8 DegF 97.9 DegF 98.1 DegF [96.4-99.1 DegF] (03/10/2013 03:22:00) (03/09/2013 22:59:00) (03/09/2013 19: 05:00) Systolic Blood Pressure 104 mmHg 100 mmHg 103 mmHg [90-140 mmHg] (03/10/2013 03:22:00) (03/09/2013 22:59:00) (03/09/2013 19:05: 00) Diastolic Blood Pressure 65 mmHg 66 mmHg 69 mmHg [60-90 mmHg] (03/10/2013 03:22:00) (03/09/2013 22:59:00) (03/09/2013 19:05: 00) Respiratory Rate [14-20 16 BRMIN 16 BRMIN 16 BRMIN BRMIN] (03/10/2013 03:22:00) (03/09/2013 22:59:00) (03/09/2013 19:05:00) Peripheral Pulse Rate 58 bpm 47 bpm 92 bpm [60-100 bpm] *LOW* *LOW* (03/09/2013 19:05:00) (03/10/2013 03:22:00) (03/09/2013 22:59:00) Weight 56 kg 56 kg 56.818 kg (03/09/2013 11:42:00) (03/07/2013 18:56:00) (03/07/2013 15:06:00) Results BLOOD BANK RESULTS Most recent to oldest [Reference Range]: 1 2 ABO/Rh O POS *Unknown* (03/09/2013 08:40:00) Antibody Scrn Negative (03/09/2013 08:40:00) CHEMISTRY Most recent to oldest [Reference 1 2 Range]: Sodium Lvl [135-145 mEq/L] 141 mEq/L 138 mEq/L (03/10/2013 01:18:31) (03/07/2013 15:54:11) Potassium Lvl [3.5-5.1 mEq/L] 4.2 mEq/L 4.3 mEq/L (03/10/2013:18:31) (03/07/2013 15:54:11) Chloride Lvl [95-109 mEq/L] 106 mEq/L 102 mEq/L (03/10/2013 01:18:31) (03/07/2013 15:54:11) CO2 [24-32 mEq/L] 29 mEq/L 28 mEq/L (03/10/2013 01:18:31) (03/07/2013 15:54:11) AGAP [10.0-20.0 mEq/L] 10.2 mEq/L 12.3 mEq/L (03/10/2013:18:31) (03/07/2013 15:54:11) Creatinine Lvl [0.5-1.4 mg/dL] 0.6 mg/dL 0.8 mg/dL (03/10/2013:18:31) (03/07/2013 15:54:11) eGFR 120 mL/min/1.73m2 1 97 mL/min/1.73m2 2 *NA* *NA* (03/10/2013:18:31) (03/07/2013 15:54:11) BUN [7-22 mg/dL] 7 mg/dL 11 mg/dL (03/10/2013 01:18:31) (03/07/2013 15:54:11) Glucose Lvl [70-99 mg/dL] 107 mg/dL 3 112 mg/dL 4 *HI* *HI* (03/10/2013 01:18:31) (03/07/2013 15:54:11) Calcium Lvl [8.5-10.5 mg/dL] 8.8 mg/dL 8.7 mg/dL (03/10/2013 01:18:31) (03/07/2013 15:54:11) Vanco Tr TND 0845 *NA* (03/09/2013 08:14:13) Vanco Tr 6.0 ug/ml 5 *NA* (03/09/2013 08:14:13) U Preg [Negative] Negative (03/09/2013 08:40:35) 1Result Comment: The eGFR is calculated using [...] eGFR should be multiplied by the estimated BMI.2Result Comment: The eGFR is calculated using the [...] eGFR should be multiplied by the estimated BMI.3Interpretive Data: Adult reference range values reflect the clinical guidelines of the [place] [employer].4Interpretive Data: Adult reference range values reflect the clinical guidelines of the [place] [employer].5Interpretive Data: Therapeutic Range: Trough: 10 - 20 ug/mL Peak: 20 - 40 ug/mL Potential Toxicity: >80 ug/mLHEMATOLOGY Most recent to oldest [Reference Range]: 1 2 WBC [3.7-10.4 K/CMM] 8.1 K/CMM (03/07/2013 15:54:11) RBC [4.20-5.40 M/CMM] 3.53 M/CMM *LOW* (03/07/2013:54:11) Hgb [12.0-16.0 g/dL] 11.1 g/dL *LOW* (03/07/2013:54:) Hct [36.0-48.0 %] 32.8 % *LOW* (03/07/2013:54:11) MCV [81.0-99.0 fL] 92.9 fL (03/07/2013 15:54:11) MCH [27.0-31.0 pg] 31.3 pg *HI* (03/07/2013:54:11) MCHC [32.0-36.0 g/dL] 33.7 g/dL (03/07/2013:54:11) RDW [11.5-14.5 %] 12.5 % (03/07/2013:54:11) Platelet [133-450 K/CMM] 230 K/CMM (03/07/2013 15:54:11) MPV [7.4-10.4 fL] 8.6 fL (03/07/2013:54:11) Segs [45.0-75.0 %] 68.4 % (03/07/2013:54:11) Lymphocytes [20.0-40.0 %] 20.3 % (03/07/2013:54:11) Monocytes [2.0-12.0 %] 8.8 % (03/07/2013:54:11) Eosinophils [0.0-4.0 %] 2.0 % (03/07/2013 15:54:11) Basophils [0.0-1.0 %] 0.5 % (03/07/2013 15:54:11) Segs-Bands # [1.5-8.1 K/CMM] 5.6 K/CMM (03/07/2013 15:54:11) Lymphocytes # [1.0-5.5 K/CMM] 1.6 K/CMM (03/07/2013 15:54:11) Monocytes # [0.0-0.8 K/CMM] 0.7 K/CMM (03/07/2013 15:54:11) Eosinophils # [0.0-0.5 K/CMM] 0.2 K/CMM (03/07/2013 15:54:11) Basophils # [0.0-0.2 K/CMM] 0.0 K/CMM (03/07/2013 15:54:11) PT [12.0-14.7 seconds] 13.1 seconds (03/08/2013 18:58:14) INR [0.85-1.17] 0.97 6 (03/08/2013 18:58:14) PTT [22.9-35.8 seconds] 32.0 seconds 7 (03/08/2013 18:58:14) 6Interpretive Data: RECOMMENDED RANGES FOR PROTIME INR: 2.0-3.0 for most medical and surgical thromboembolic states. 2.5-3.5 for artificial heart valves and recurrent embolism. INR SHOULD BE USED ONLY FOR PATIENTS ON STABLE ANTICOAGULANT THERAPY.7Interpretive Data: Heparin Therapeutic Range: 57 - 92 SecondsIMMUNOLOGY Most recent to oldest [Reference Range]: 1 2 CDC-HIV 1/2 Ab [Negative] Negative *NA* (03/07/2013 15:54:24) Microbiology Reports PROCEDURE:Culture: AFB w/Smear STATUS: In Progress BODY SITE: COLLECTED DATE/TIME: 03/09/2013 10:32:00 SOURCE: Wound, Surg FREE TEXT SOURCE: PRELIMINARY REPORTS Preliminary ReportCulture In ProgressSTAIN REPORTS Stain ReportNo Acid Fast Bacilli Seen On Smear PROCEDURE: Culture: Wound/Abscess w/Gram Stain STATUS: Auth (Verified) BODY SITE: Wound COLLECTED DATE/TIME: 03/09/2013 10:32:00 SOURCE: Wound, Surg FREE TEXT SOURCE: posr surgical wound fluif or non stat [id number] FINAL REPORTS Final ReportModerate Staphylococcus aureus PRELIMINARY REPORTS Preliminary ReportModerate Staphylococcus aureus Susceptibility To FollowSTAIN REPORTS Stain ReportModerate WBC's No Organisms SeenSUSCEPTIBILITY REPORT SA Antibiotic INTERP., JADEN., Cefazolin S <=4 Clindamycin S <=0.25 Erythromycin S <=0.25 Levofloxacin S <=0.5 Oxacillin S <=0.25 Rifampin S <=1 Tetracycline S <=1 Trimethoprim/Sulfamethoxazole S <=0.5/9.5 Vancomycin S 1 PROCEDURE:Culture: Anaerobic STATUS: In Progress BODY SITE: COLLECTED DATE/TIME: 03/09/2013 10:32:00 SOURCE: Wound, Surg FREE TEXT SOURCE: post surgiical wound fluid PRELIMINARY REPORTS Preliminary ReportCulture In Progress Preliminary ReportNo Anaerobes Isolated After 3 Days Preliminary ReportNo Anaerobes Isolated After 2 Days PROCEDURE:Culture: Fungal w/Smear STATUS: In Progress BODY SITE: COLLECTED DATE/TIME: 03/09/2013 10:32:00 SOURCE: Wound, Surg FREE TEXT SOURCE: PRELIMINARY REPORTS Preliminary ReportCulture In ProgressSTAIN REPORTS Stain ReportNo Yeast Or Fungal Elements Seen PROCEDURE: Gram Stain STATUS: Auth (Verified) BODY SITE: Neck COLLECTED DATE/TIME: 03/08/2013 19:00:00 SOURCE: Wound, Surg FREE TEXT SOURCE: O2 swab-back of head STAIN REPORTS Stain ReportRare Wbc'S; Rare Gram Positive Cocci In Pairs Specimen received on swab. Swabs are an inadequate Method of Specimen Collection Due to Their Poor Sensitivity. An Aspirate or Tissue is the Specimen Of Choice. Phone Report Made To: NIYA, [id number], Savi Majano RN At: 03/08/2013 23:01:25 Called By: LIA Read Back Ok PROCEDURE:Culture: Wound/Abscess w/Gram Stain STATUS: Auth (Verified) BODY SITE: Neck COLLECTED DATE/TIME: 03/08/2013 19:00:00 SOURCE: Wound, Surg FREE TEXT SOURCE: O2 swab-back of head FINAL REPORTS Final ReportModerate Staphylococcus aureus Refer To Culture # [id number] collected 03-09-13 For Susceptibility ResultsPRELIMINARY REPORTS Preliminary ReportModerate Staphylococcus aureus Procedures Procedures Date Related Diagnosis Craniectomy 1 1Chiari Malformation
--- OUTSIDE RECORDS SUMMARY | 2018-02-03 17:32 | XMS REPORT | Summary of Care ---
:1980 Author Organization [facility] Address [address] [place], [place] [address]- Encounter HQ Stefano(QUEENIE) [id number] Date(s): 11/29/15 - 11/29/15 [facility] [address] [place] [address] Professional Services provided by [facility] [place] [address]- Discharge Disposition: Home Attending Physician: Ellis Hernandez MD Admitting Physician: Bhargav Booker MD Vital Signs Most recent to oldest 1 2 3 [Reference Range]: Height 177.8 cm (11/29/15 12:48 AM) Temperature Oral [96.4-99.1 97.2 DegF 97.6 DegF 97 DegF DegF] (11/29/15 11:28 AM) (11/29/15 7:08 AM) (11/29/15 3:57 AM) Blood Pressure [90-140/60-90 99/53 mmHg 99/63 mmHg 94/53 mmHg mmHg] (11/29/15 11:28 AM) (11/29/15 9:40 AM) (11/29/15 7:08 AM) Respiratory Rate [14-20 BRMIN] 18 BRMIN 18 BRMIN 18 BRMIN (11/29/15 11:28 AM) (11/29/15 7:08 AM) (11/29/15 3:57 AM) Peripheral Pulse Rate [60-100 53 bpm 51 bpm 52 bpm bpm] *LOW* *LOW* *LOW* (11/29/15 11:28 AM) (11/29/15 7:08 AM) (11/29/15 3:57 AM) Weight 63.636 kg (11/29/15 12:48 AM) Body Mass Index 20.13 m2 (11/29/15 12:48 AM) Problem List Condition Effective Dates Status Health Status Informant Chiari malformation(Confirmed) Resolved Murmur(Confirmed)1 Active Neck pain(Confirmed)2 Resolved Pain(Confirmed) Active 1patient states she had heart murmur-[id number] states her neck pain is due to chiari malformation. Allergies, Adverse Reactions, Alerts Substance Reaction Severity Status Esoterica with Sunscreen Active Medications acetaminophen-hydrocodone 325 mg-10 mg oral tablet 1 tab, Route: PO, Drug Form: TAB, Dosing Weight 63.636, kg, Q4H, PRN Pain Score 4-6, Start date: 11/29/15 1:12:00 CDT, Duration: 30 day, Stop date: 12/29/15 1: 11:00 CDT Notes: Do not exceed 4gm/day of acetaminophen. (Same as: [place] 325/10) Start Date: 11/29/15 Stop Date: 11/29/15 Status: Discontinuedacetaminophen-hydrocodone 325 mg-10 mg oral tablet 2 tab, Route: PO, Drug Form: TAB, Dosing Weight 63.636, kg, Q4H, PRN Pain Score 7-10, Start date: 11/29/15 1:12:00 CDT, Duration: 30 day, Stop date: 12/29/15 1: 11:00 CDT Notes: Do not exceed 4gm/day of acetaminophen. (Same as: [place] 325/10) Start Date: 11/29/15 Stop Date: 11/29/15 Status: Discontinuedbisacodyl 10 mg, 1 supp, Route: MA, Drug form: SUPP, Daily, Dosing Weight 63.636, kg, PRN Constipation, Start date: 11/29/15 1:12:00 CDT, Duration: 30 day, Stop date: 1:11:00 CDT Notes: (Same As: Dulcolax, Bisco-Lax) Start Date: 11/29/15 Stop Date: 11/29/15 Status: Discontinuedcyclobenzaprine 10 mg oral tablet 10 mg=1 tab, PO, TID, PRN Spasm, # 30 tab, 0 Refill(s) Start Date: 11/29/15 Stop Date: 11/29/15 Status: CompletedDextrose 50% Syringe 25 gm, 50 mL, Route: IVP, Drug Form: INJ, Dosing Weight 63.636, kg, PRN, PRN Abnormal Lab Result, Start date: 11/29/15 1:12:00 CDT, Duration: 30 day, Stop date: 12/29/15 1:11:00 CDT Start Date: 11/29/15 Stop Date: 11/29/15 Status: DiscontinuedDextrose 50% Syringe 6.25 gm, 12.5 mL, Route: IVP, Drug Form: INJ, Dosing Weight 63.636, kg, PRN, PRN Abnormal Lab Result, Start date: 11/29/15 1:12:00 CDT, Duration: 30 day, Stop date: 12/29/15 1:11:00 CDT Start Date: 11/29/15 Stop Date: 11/29/15 Status: DiscontinuedDextrose 50% Syringe 12.5 gm, 25 mL, Route: IVP, Drug Form: INJ, Dosing Weight 63.636, kg, PRN, PRN Abnormal Lab Result, Start date: 11/29/15 1:12:00 CDT, Duration: 30 day, Stop date: 12/29/15 1:11:00 CDT Start Date: 11/29/15 Stop Date: 11/29/15 Status: Discontinueddocusate 100 mg, 1 cap, Route: PO, Drug form: CAP, Q12H, Dosing Weight 63.636, kg, Start date: 11/29/15 9:00:00 CDT, Duration: 30 day, Stop date: 12/28/15 21:00:00 CDT Notes: (Same as: Colace) (Do Not Crush) Start Date: 11/29/15 Stop Date: 11/29/15 Status: Discontinueddocusate sodium 100 mg oral capsule 100 mg=1 cap, PO, Q12H, # 10 cap, 0 Refill(s) Start Date: 11/29/15 Stop Date: 11/29/15 Status: DiscontinuedFlexeril 10 mg, 1 tab, Route: PO, Drug form: TAB, TID, Dosing Weight 63.636, kg, PRN Spasm, Start date: 11/29/15 1:16:00 CDT, Duration: 30 day, Stop date: 12/29/15 1 :15:00 CDT Notes: (Same As: Flexeril) Start Date: 11/29/15 Stop Date: 11/29/15 Status: DiscontinuedhydrALAZINE 10 mg, 0.5 mL, Route: IV, Drug form: INJ, Q4H, Dosing Weight 63.636, kg, PRN Hypertension, Start date: 11/29/15 1:14:00 CDT, Duration: 30 day, Stop date: 1:13:00 CDT Notes: (Same as: Apresoline)Push over 5 minutes Start Date: 11/29/15 Stop Date: 11/29/15 Status: Discontinuedinsulin regular 100 units/mL human recombinant 3 unit, 0.03 mL, Route: SUB-Q, Drug form: SOLN, PRN, Dosing Weight 63.636, kg, PRN Abnormal Lab Result, Start date: 11/29/15 1:12:00 CDT, Duration: 30 day, Stop date: 12/29/15 1:11:00 CDT Notes: (Same as: Humulin R) Roll in palms of hands gently; Do not shake vigorously. "single patientuse only"(Restricted to patients requiring a dose > 60 units)WASTE: F/P - Black; E - Municipal Trash Bin Stable for 28 days at room temperatureExpires in days from Date Start Date: 11/29/15 Stop Date: 11/29/15 Status: Discontinuedinsulin regular 100 units/mL human recombinant 5 unit, 0.05 mL, Route: SUB-Q, Drug form: SOLN, PRN, Dosing Weight 63.636, kg, PRN Abnormal Lab Result, Start date: 11/29/15 1:12:00 CDT, Duration: 30 day, Stop date: 12/29/15 1:11:00 CDT Notes: (Same as: Humulin R) Roll in palms of hands gently; Do not shake vigorously. "single patientuse only"(Restricted to patients requiring a dose > 60 units)WASTE: F/P - Black; E - Municipal Trash Bin Stable for 28 days at room temperatureExpires in days from Date Start Date: 11/29/15 Stop Date: 11/29/15 Status: Discontinuedinsulin regular 100 units/mL human recombinant 7 unit, 0.07 mL, Route: SUB-Q, Drug form: SOLN, PRN, Dosing Weight 63.636, kg, PRN Abnormal Lab Result, Start date: 11/29/15 1:12:00 CDT, Duration: 30 day, Stop date: 12/29/15 1:11:00 CDT Notes: (Same as: Humulin R) Roll in palms of hands gently; Do not shake vigorously. "single patientuse only"(Restricted to patients requiring a dose > 60 units)WASTE: F/P - Black; E - Municipal Trash Bin Stable for 28 days at room temperatureExpires in days from Date Start Date: 11/29/15 Stop Date: 11/29/15 Status: DiscontinuedketOROLAC 10 mg oral tablet 10 mg=1 tab, PO, Q6H, PRN Pain, X 5 day, # 20 tab, 0 Refill(s) Start Date: 11/29/15 Stop Date: 12/04/15 Status: Orderedlabetalol 10 mg, 2 mL, Route: IVP, Drug form: INJ, Q15Min, Dosing Weight 63.636, kg, PRN Hypertension, Start date: 11/29/15 1:14:00 CDT, Duration: 3 doses or times, Stop date: Limited # of times Start Date: 11/29/15 Stop Date: 11/29/15 Status: Discontinuedmorphine Sulfate 2 mg, Route: IVP, Q1H, Dosing Weight 63.636, kg, PRN Pain Score 7-10, Start date : 11/29/15 1:12:00 CDT, Duration: 30 day, Stop date: 12/29/15 1:11:00 CDT Start Date: 11/29/15 Stop Date: 11/29/15 Status: Discontinuedmorphine Sulfate 2 mg, 1 mL, Route: IVP, Drug form: INJ, Q4H, Dosing Weight 63.636, kg, PRN Pain Score 7-10, Start date: 11/29/15 1:16:00 CDT, Duration: 30 day, Stop date: 12/28 1:15:00 CDT Notes: (Same as:MORPhine Sulfate) Start Date: 11/29/15 Stop Date: 11/29/15 Status: DiscontinuedNorco 10/325 oral tablet 1 tab, PO, BID, 0 Refill(s) Start Date: 11/29/15 Status: Orderedondansetron 4 mg, 2 mL, Route: IVP, Drug form: INJ, Q8H, Dosing Weight 63.636, kg, PRN Nausea & Vomiting, Start date: 11/29/15 1:12:00 CDT, Duration: 30 day, Stop date: 12/29/15 1:11:00 CDT Notes: (Same as: Zofran) MEDICATION WASTE Product Size: 4 mgProduct Wasted: ___ mg Start Date: 11/29/15 Stop Date: 11/29/15 Status: Discontinuedpregabalin 200 mg oral capsule 200 mg=1 cap, PO, TID, # 30 cap, 1 Refill(s) Start Date: 11/29/15 Status: OrderedSaline Flush 0.9% 10 ml, Route: MISC, Drug Form: INJ, Dosing Weight 63.636, kg, PRN, PRN Line Flush, Start date: 11/29/15 1:12:00 CDT, Duration: 30 day, Stop date: 12/29/15 1 :11:00 CDT Notes: (Same as: BD Posiflush) Start Date: 11/29/15 Stop Date: 11/29/15 Status: DiscontinuedSaline Flush 0.9% 10 ml, Route: MISC, Drug Form: INJ, Dosing Weight 63.636, kg, Q12H, Start date: 11/29/15 9:00:00 CDT, Duration: 30 day, Stop date: 12/28/15 21:00:00 CDT Notes: (Same as: BD Posiflush) Start Date: 11/29/15 Stop Date: 11/29/15 Status: Discontinuedsenna 8.6 mg, 1 tab, Route: PO, Drug Form: TAB, Dosing Weight 63.636, kg, Q12H, Start date: 11/29/15 9:00:00 CDT, Duration: 30 day, Stop date: 12/28/15 21:00:00 CDT Notes: (Same as: Ivonne) Start Date: 11/29/15 Stop Date: 11/29/15 Status: DiscontinuedSodium Chloride 0.9% IV 1,000 mL 1,000 mL, Rate: 75 ml/hr, Infuse over: 13.3 hr, Route: IVPB, Dosing Weight 63.636 kg, Total Volume: 1,000, Start date: 11/29/15 1:12:00 CDT, Duration: 30 day, Stop date: 12/29/15 1:11:00 CDT Start Date: 11/29/15 Stop Date: 11/29/15 Status: DiscontinuedTylenol with Codeine #3 oral tablet 1 tab, PO, Q4H, PRN Pain, X 7 day, # 42 tab, 0 Refill(s) Start Date: 11/29/15 Stop Date: 11/29/15 Status: Discontinued Results BLOOD BANK RESULTS Most recent to oldest [Reference Range]: 1 ABO/Rh O POS *Unknown* (11/29/15 1:53 AM) Antibody Scrn Negative (11/29/15 1:53 AM) ELECTROLYTES Most recent to oldest [Reference Range]: 1 Sodium Lvl [135-145 mEq/L] 142 mEq/L (11/29/15 1:53 AM) Potassium Lvl [3.5-5.1 mEq/L] 3.8 mEq/L (11/29/15 1:53 AM) Chloride Lvl [95-109 mEq/L] 111 mEq/L *HI* (11/29/15 1:53 AM) CO2 [24-32 mEq/L] 24 mEq/L (11/29/15 1:53 AM) AGAP [10.0-20.0 mEq/L] 10.8 mEq/L (11/29/15 1:53 AM) CHEM PANEL Most recent to oldest [Reference Range]: 1 Creatinine Lvl [0.50-1.40 mg/dL] 0.55 mg/dL (11/29/15 1:53 AM) eGFR 122 mL/min/1.73m2 1 *NA* (11/29/15 1:53 AM) BUN [7-22 mg/dL] 14 mg/dL (11/29/15 1:53 AM) Glucose Lvl [70-99 mg/dL] 110 mg/dL *HI* (11/29/15 1:53 AM) Calcium Lvl [8.5-10.5 mg/dL] 9.1 mg/dL (11/29/15 1:53 AM) 1Result Comment: The eGFR is calculated using [...] eGFR should be multiplied by the estimated BMI.URINE AND STOOL Most recent to oldest [Reference Range]: 1 UA Turbidity [Clear] Clear (11/29/15 3:49 AM) UA Color [Yellow] Yellow *NA* (11/29/15 3:49 AM) UA pH [5.0-8.0] 6.0 (11/29/15 3:49 AM) UA Spec Grav [<=1.030] 1.019 (11/29/15 3:49 AM) UA Glucose [Negative mg/dL] Negative mg/dL *NA* (11/29/15 3:49 AM) UA Blood [Negative] Trace *ABN* (11/29/15 3:49 AM) UA Ketones [Negative mg/dL] Negative mg/dL *NA* (11/29/15 3:49 AM) UA Protein [Negative mg/dL] 20 mg/dL *ABN* (11/29/15 3:49 AM) UA Urobilinogen [0.1-1.0 mg/dL] <=1.0 mg/dL *NA* (11/29/15 3:49 AM) UA Bili [Negative] Negative *NA* (11/29/15 3:49 AM) UA Leuk Est [Negative] Moderate *ABN* (11/29/15 3:49 AM) UA Nitrite [Negative] Negative (11/29/15 3:49 AM) UA WBC [0-5 /HPF] 54 /HPF *HI* (11/29/15 3:49 AM) UA RBC [0-2 /HPF] 3 /HPF *HI* (11/29/15 3:49 AM) UA Bacteria [None Seen /HPF] Occasional /HPF *NA* (11/29/15 3:49 AM) UA Sq Epi None Seen *NA* (11/29/15 3:49 AM) UA Mucus [None Seen /LPF] Moderate /LPF *ABN* (11/29/15 3:49 AM) HEMATOLOGY Most recent to oldest [Reference Range]: 1 WBC [3.7-10.4 K/CMM] 9.1 K/CMM (11/29/15 1:53 AM) RBC [4.20-5.40 M/CMM] 3.98 M/CMM *LOW* (11/29/15 1:53 AM) Hgb [12.0-16.0 g/dL] 12.6 g/dL (11/29/15 1:53 AM) Hct [36.0-48.0 %] 37.6 % (11/29/15 1:53 AM) MCV [80.0-98.0 fL] 94.4 fL (11/29/15 1:53 AM) MCH [27.0-31.0 pg] 31.7 pg *HI* (11/29/15 1:53 AM) MCHC [32.0-36.0 g/dL] 33.5 g/dL (11/29/15 1:53 AM) RDW [11.5-14.5 %] 13.2 % (11/29/15 1:53 AM) Platelet [133-450 K/CMM] 212 K/CMM (11/29/15 1:53 AM) MPV [7.4-10.4 fL] 10.8 fL *HI* (11/29/15 1:53 AM) Segs [45.0-75.0 %] 76.6 % *HI* (11/29/15 1:53 AM) Lymphocytes [20.0-40.0 %] 15.5 % *LOW* (11/29/15 1:53 AM) Monocytes [2.0-12.0 %] 7.2 % (11/29/15 1:53 AM) Eosinophils [0.0-4.0 %] 0.1 % (11/29/15 1:53 AM) Basophils [0.0-1.0 %] 0.6 % (11/29/15 1:53 AM) Segs-Bands # [1.5-8.1 K/CMM] 7.0 K/CMM (11/29/15 1:53 AM) Lymphocytes # [1.0-5.5 K/CMM] 1.4 K/CMM (11/29/15 1:53 AM) Monocytes # [0.0-0.8 K/CMM] 0.7 K/CMM (11/29/15 1:53 AM) Basophils # [0.0-0.2 K/CMM] 0.1 K/CMM (11/29/15 1:53 AM) PT [12.0-14.7 seconds] 13.7 seconds (11/29/15 1:53 AM) INR [0.85-1.17] 1.02 (11/29/15 1:53 AM) PTT [22.9-35.8 seconds] 29.1 seconds (11/29/15 1:53 AM) Immunizations No data available for this section Procedures Procedure Date Related Diagnosis Body Site Appendectomy Augmentation Craniectomy1 Knee joint operation Oophorectomy Tubal ligation 1Chiari Malformation Social History Social History Type Response Substance Abuse Use: None. Alcohol Never Smoking Status Current every day smoker; Tobacco use per day: 1; Exposure to Tobacco Smoke None; Cigarette Smoking Last 365 Days No; Reg Smoking Cessation Counseling No Assessment and Plan No data available for this section
--- NOTE | 2018-02-03 17:55 | EDPHYS ---
Physician Documentation [facility] Name: Deyanira Del Castillo Age: 38 yrs Sex: Female : 1980 Arrival Date: 02/03/2018 Time: 17:28 Bed 12 Private MD: ED Physician Oseas Murray HPI: 02/03 17:50 This 38 yrs old Female presents to ER via Ambulatory with complaints of ps1 Shoulder Injury. 17:50 The patient or guardian complains of an injury. states she was moving boxes and heard a ps1 pop and now has shoulder pain. Recent visit for same and given medications. She states she reinjured the shoulder today. Pain rated moderate. Worse with supination and flexion of the elbow. . 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 - Social history:: Smoking status: Patient uses tobacco products, smokes one-half pack cigarettes per day, Patient/guardian denies using alcohol. - Ebola Screening: : Patient negative for fever greater than or equal to 101.5 degrees Fahrenheit, and additional compatible Ebola Virus Disease symptoms Patient denies exposure to infectious person Patient denies travel to an Ebola-affected area in the 21 days before illness onset. ROS: 17:50 Constitutional: Negative for fever, chills, and weight loss, Eyes: Negative for injury, ps1 pain, redness, and discharge, ENT: Negative for injury, pain, and discharge, Cardiovascular: Negative for chest pain, palpitations, and edema, Respiratory: Negative for shortness of breath, cough, wheezing, and pleuritic chest pain, Abdomen/GI: Negative for abdominal pain, nausea, vomiting, diarrhea, and constipation, Back: Negative for injury and pain. 17:50 MS/extremity: Positive for pain, of the anterior aspect of right shoulder. Exam: 17:50 Constitutional: This is a well developed, well nourished patient who is awake, alert, ps1 and in no acute distress. Head/Face: Normocephalic, atraumatic. Neck: Trachea midline, no thyromegaly or masses palpated, and no cervical lymphadenopathy. Supple, full range of motion without nuchal rigidity, or vertebral point tenderness. No Meningismus. Chest/axilla: Normal chest wall appearance and motion. Nontender with no deformity. No lesions are appreciated. Cardiovascular: Regular rate and rhythm. No gallops, murmurs, or rubs. Normal PMI, no JVD. No pulse deficits. Respiratory: Lungs have equal breath sounds bilaterally, clear to auscultation and percussion. No rales, rhonchi or wheezes noted. No increased work of breathing, no retractions or nasal flaring. Abdomen/GI: Soft, non-tender, with normal bowel sounds. No distension or tympany. No guarding or rebound. No evidence of tenderness throughout. Neuro: Awake and alert, GCS 15, oriented to person, place, time, and situation. Cranial nerves II-XII grossly intact. Sensory grossly intact. Psych: Awake, alert, with orientation to person, place and time. Behavior, mood, and affect are within normal limits. 17:50 Musculoskeletal/extremity: Extremities: grossly normal except: noted in the anterior aspect of right shoulder: exam consistent with bicipital tendonitis. Pain with active flexion of elbow against resistance with palpation of the bicipital groove. . Vital Signs: 17:33 BP 107 / 90; Pulse 82; Resp 18; Temp 98.8(O); Pulse Ox 99% ; Weight 63.5 kg; Height 5 hj ft. 10 in. (177.80 cm); Pain 7/10; 17:33 Body Mass Index 20.09 (63.50 kg, 177.80 cm) hj MDM: 17:50 Data reviewed: vital signs, nurses notes. ED course: Home with tramadol and medrol. ps1 Cannot take NSAIDS 2/2 kidney injury. . 17:54 Patient medically screened. ps1 Administered Medications: No medications were administered Disposition: 02/03/18 17:54 Discharged to Home. Impression: Bicipital tendinitis, right shoulder. - Condition is Stable. - Discharge Instructions: Bicipital Tendonitis. - Prescriptions for Ultram 50 mg Oral Tablet - take 1 tablet by ORAL route every 6 hours As needed; 30 tablet. Medrol (Zach) 4 mg Oral Tablets, Dose Pack - take 1 tablet by ORAL route as directed - follow package instructions; 1 packet. - Medication Reconciliation Form, Thank You Letter, Antibiotic Education, Prescription Opioid Use form. - Follow up: Private Physician; When: As needed; Reason: Recheck today's complaints, Continuance of care, Re-evaluation by your physician. Follow up: Emergency Department; When: As needed; Reason: Worsening of condition. - Problem is new. - Symptoms are unchanged. Signatures: Tia Holder RN RN iw Flavio Curry RN RN hj Oseas Murray MD MD ps1 Corrections: (The following items were deleted from the chart) 18:00 17:54 02/03/2018 17:54 Discharged to Home. Impression: Bicipital tendinitis, right iw shoulder. Condition is Stable. Forms are Medication Reconciliation Form, Thank You Letter, Antibiotic Education, Prescription Opioid Use. Follow up: Private Physician; When: As needed; Reason: Recheck today's complaints, Continuance of care, Re-evaluation by your physician. Follow up: Emergency Department; When: As needed; Reason: Worsening of condition. Problem is new. Symptoms are unchanged. ps1
--- NOTE | 2018-02-03 17:55 | ER ---
Nurse's Notes [facility] Name: Deyanira Del Castillo Age: 38 yrs Sex: Female : 1980 Arrival Date: 02/03/2018 Time: 17:28 Bed 12 Private MD: Diagnosis: Bicipital tendinitis, right shoulder Presentation: 02/03 17:29 Presenting complaint: Patient states: 2 weeks ago for R shoulder problem that was hj manipulated here and got fixed, i was moving things from storage and i heard a popping sound again on my R shoulder, i feel like its pulling a muscle of my neck; happened around 3:30pm;. Transition of care: patient was not received from another setting of care. Onset of symptoms was February 03, 2018. Risk Assessment: Do you want to hurt yourself or someone else? Patient reports no desire to harm self or others. Initial Sepsis Screen: Does the patient meet any 2 criteria? No. Patient's initial sepsis screen is negative. Does the patient have a suspected source of infection? No. Patient's initial sepsis screen is negative. Care prior to arrival: None. 17:29 Method Of Arrival: Ambulatory 17:29 Acuity: VERA 4 hj Triage Assessment: 17:33 General: Appears in no apparent distress. uncomfortable, Behavior is calm, cooperative, hj appropriate for age. Pain: Complains of pain in anterior aspect of right shoulder. Musculoskeletal: Reports pain in anterior aspect of right shoulder. 18:21 Injury Description:. 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 - Social history:: Smoking status: Patient uses tobacco products, smokes one-half pack cigarettes per day, Patient/guardian denies using alcohol. - Ebola Screening: : Patient negative for fever greater than or equal to 101.5 degrees Fahrenheit, and additional compatible Ebola Virus Disease symptoms Patient denies exposure to infectious person Patient denies travel to an Ebola-affected area in the 21 days before illness onset. Screenin:33 Abuse screen: Denies threats or abuse. Denies injuries from another. Nutritional hj screening: No deficits noted. Tuberculosis screening: No symptoms or risk factors identified. Fall Risk None identified. Assessment: 17:35 General: Appears in no apparent distress. Behavior is calm, cooperative. Pain: iw Complains of pain in anterior aspect of right shoulder. Neuro: Level of Consciousness is awake, alert, obeys commands, Oriented to person, place, time, situation, Moves all extremities. Full function. Cardiovascular: Patient's skin is warm and dry. Respiratory: Respiratory effort is even, unlabored, Respiratory pattern is regular, symmetrical. Derm: Skin is pink, warm \T\ dry. normal. Musculoskeletal: Range of motion: intact in all extremities. Vital Signs: 17:33 BP 107 / 90; Pulse 82; Resp 18; Temp 98.8(O); Pulse Ox 99% ; Weight 63.5 kg; Height 5 hj ft. 10 in. (177.80 cm); Pain 7/10; 17:33 Body Mass Index 20.09 (63.50 kg, 177.80 cm) ED Course: 17:28 Patient arrived in ED. rg4 17:31 Triage completed. hj 17:33 Arm band placed on right wrist. hj 17:35 Patient has correct armband on for positive identification. iw 17:43 Tia Holder RN is Primary Nurse. iw 17:43 Oseas Murray MD is Attending Physician. ps1 17:55 No provider procedures requiring assistance completed. Patient did not have IV access iw during this emergency room visit. Administered Medications: No medications were administered Outcome: 17:54 Discharge ordered by MD. ps1 17:59 Discharged to home ambulatory. iw 17:59 Condition: good 17:59 Discharge instructions given to patient, Instructed on discharge instructions, follow up and referral plans. medication usage, Demonstrated understanding of instructions, follow-up care, medications, Prescriptions given X 2. 18:00 Patient left the ED. iw Signatures: Tia Holder RN RN iw Joaquin, Henry, RN RN hj Garcia, Rubi 4 Oseas Murray MD MD ps1 Corrections: (The following items were deleted from the chart) 17:32 17:29 Presenting complaint: Patient states: 2 weeks ago for R shoulder dislocation that hj was fixed, i was moving things from storage and i heard a popping sound again on my R shoulder, i feel like its pulling a muscle of my neck; happened around 3:30pm; hj
[2018-02-03 18:03] VITALS: BP 107/90; TEMP 98.8; O2SAT 99
== END 2018-02-03 18:00 | disposition home or self-care (01) ==
LOC: ER 17:26
DX: M75.21 Bicipital tendinitis, right shoulder (principal); F17.210 Nicotine dependence, cigarettes, uncomplicated; Z98.82 Breast implant status
CPT/HCPCS: 99282

== ENCOUNTER 2018-03-03 21:38 | Emergency (ER) | payer SELFPAY ==
--- OUTSIDE RECORDS SUMMARY | 2018-03-03 21:44 | XMS REPORT | Continuity of Care Document ---
:1980 Author Organization Interface Problems Problem Status Onset Classification Date Comments Source Date Reported CAUDA EQUINA Active 11/28/19 [facility] SYNDROME 16 [facility] CHIARI Active 09/01/19 [facility] MALFORMATION 16 Medical Center INCISIONAL Active 03/07/20 [facility] PAIN,PURULENT 13 Medical DISCHARGE FROM Center INFECTED SURGERY Active 03/07/20 [facility] INCISION 13 Medical Center KIARI Active 02/06/20 [facility] MALFORMATIONOK 13 Medical PER [facility] [id number] CHAIRI Active 01/28/[address] Chiari Resolved Problem 12/02/2015 [facility] Murmur<sup>1</rucker Active Problem 12/02/2015 patient [facility] p> states she Medical had heart Center murmur-rowan enital Neck Resolved Problem 12/02/2015 patient [facility] pain<sup>2</sup> states her Medical neck pain Center is due to chiari malformatio n. Pain Active Problem 12/02/2015 [facility] Chiari Resolved Problem 03/12/2013 [facility] Murmur Active Problem 03/12/2013 [facility] Neck pain Resolved Problem 03/12/2013 [facility] Pain Active Problem 03/12/2013 [facility] PUD - Peptic Active Problem 03/12/2013 [facility] ulcer disease [facility] Center COMPRESSION OF Active [facility] BRAIN [facility] OTHER GENERAL Active [facility] SYMPTOMS [facility] Medications Medication Details Route Status Patient Ordering Order Source Instructions Provider Date Saline Flush 10 ml, Route: Inactive 11/28/ [facility] 0.9% MISC, Drug 2015 Medical Form: INJ, [place] Dosing Weight 63.636, kg, Q12H, Start date: 11/29/15 9:00:00 CDT, Duration: 30 day, Stop date: 12/28/15 21:00:00 CDTNotes: (Same as: BD Posiflush) sennosides, ALF 8.6 mg, 1 tab, Inactive 11/28/ [facility] Route: PO, 2016 Medical Drug Form: Center TAB, Dosing Weight 63.636, kg, Q12H, Start date: 11/29/15 9:00:00 CDT, Duration: 30 day, Stop date: 12/28/15 21:00:00 CDTNotes: (Same as: Senokot) Docusate 100 mg, 1 cap, Inactive 11/28[facility] Route: PO, 2015 Medical Drug form: [place] CAP, Q12H, Dosing Weight 63.636, kg, Start date: 11/29/15 9:00:00 CDT, Duration: 30 day, Stop date: 12/28/15 21:00:00 CDTNotes: (Same as: Colace) (Do Not Crush) Ketorolac 10 mg=1 tab, Active [facility] Tromethamine 10 PO, Q6H, PRN 2016 Medical MG Oral Tablet Pain, X 5 day, Center # 20 tab, 0 Refill(s) Acetaminophen 1 tab, PO, Inactive 11/28[facility] 300 MG / Codeine Q4H, PRN Pain, 2016 Medical Phosphate 30 MG X 7 day, # 42 Center Oral Tablet tab, 0 [Tylenol with Refill(s) Codeine #3] docusate sodium 100 mg=1 cap, Inactive 11/28[facility] 100 mg oral PO, Q12H, # 10 2016 Medical capsule cap, 0 Center Refill(s) cyclobenzaprine 10 mg=1 tab, Inactive 11/28[facility] [place] 10 mg oral PO, TID, PRN 2016 Medical tablet Spasm, # 30 Center tab, 0 Refill(s) Morphine 2 mg, 1 mL, Inactive 11/28[facility] Route: IVP, 2016 Medical Drug form: [place] INJ, Q4H, Dosing Weight 63.636, kg, PRN Pain Score 7-10, Start date: 11/29/15 1:16:00 CDT, Duration: 30 day, Stop date: 12/29/15 1:15:00 CDTNotes: (Same as:MORPhine Sulfate) Flexeril 10 mg, 1 tab, Inactive 11/28[facility] Route: PO, 2016 Medical Drug form: [place] TAB, TID, Dosing Weight 63.636, kg, PRN [...] Cait Route: IV, 2015 Medical Drug form: [place] INJ, Q4H, Dosing Weight 63.636, kg, PRN [...] Posiflush) Regular Insulin, 3 unit, 0.03 Inactive [facility] Human 100 UNT/ML mL, Route: 2016 [...] Syringe Route: IVP, 2015 Medical Drug Form: [place] INJ, Dosing Weight 63.636, kg, PRN, PRN Abnormal Lab Result, Start date: 11/29/15 1:12:00 CDT, Duration: 30 day, Stop date: 12/29/15 1:11:00 CDT Sodium Chloride 1,000 mL, Inactive Cait 0.154 MEQ/ML Rate: 75 2015 Medical Injectable ml/hr, Infuse [place] Solution over: 13.3 hr, Route: IVPB, Dosing Weight 63.636 kg, Total Volume: 1,000, Start date: 11/29/15 1:12:00 CDT, Duration: 30 day, Stop date: 12/29/15 1:11:00 CDT Ondansetron 4 mg, 2 mL, Inactive Cait Route: IVP2015 Medical Drug form: [place] INJ, Q8H, Dosing Weight 63.636, kg, PRN Nausea & Vomiting, Start date: 11/29/15 1:12:00 CDT, Duration: 30 day, Stop date: 12/29/15 1:11:00 CDTNotes: (Same as: Zofran) MEDICATION WASTE Product Size: 4 mg Product Wasted: ___ mg Bisacodyl 10 mg, 1 supp, Inactive Cait Route: [place], 2016 Medical Drug form: [place] SUPP, Daily, Dosing Weight 63.636, kg, PRN [...] not exceed 4gm/day of acetaminophen. (Same as: [place] 325/10) Morphine 2 mg, Route: Inactive [facility] IVP, Q1H, 2015 Medical Dosing Weight Center 63.636, kg, PRN Pain Score 7-10, Start date: 11/29/15 1:12:00 CDT, Duration: 30 day, Stop date: 12/29/15 1:11:00 CDT Acetaminophen 1 tab, PO, Active [facility] 325 MG / BID, 0 2015 [facility] Hydrocodone Refill(s) [place] Bitartrate 10 MG Oral Tablet [[place] 10/325] pregabalin 200 200 mg=1 cap, Active [facility] mg oral capsule PO, TID, # 30 2015 Medical cap, 1 Center Refill(s) Keflex 500 mg 500 mg, 1 cap, PO Active Broderick [facility] oral capsule PO, QID, 56 2012 Medical cap, Center Substitution Allowed, CAP Keflex 500 mg 500 mg, 1 cap, PO Active Esquenayari [facility] oral capsule PO, QID, 28 Lay 2012 Medical cap, Center Substitution Allowed, CAP acetaminophen-hy 1 tab, PO, PO Active Esquenayari [facility] drocodone 325 Q4H, PRN, 50 Lay 2012 Medical mg-10 mg oral tab, Pain Center tablet Score 4-6, Substitution Allowed, Maintenance, TAB Remove - 1 patch, TOP No Longer Johnson [facility] lidocaine Route: TOP, Active 2012 Medical topical patch Daily, Drug Center form: ERFILM, Start date: 03/10/13 5:00:00, Duration: 30 day, Stop date: 04/08/13 5:00:00 Celebrex 200 mg, 2 cap, PO No Longer Alex [facility] Route: PO, Active 2012 Medical Drug form: [place] CAP, Q12H, Dosing Weight 56, kg, Start date: 03/10/13 4:00:00, Duration: 30 day, Stop date: 04/08/13 16:00:00 Lyrica 100 mg, 1 cap, PO No Longer Alex [facility] Route: PO, Active 2012 Medical Drug form: [place] CAP, Q8H, Dosing Weight 56, kg, Start date: 03/10/13 0:00:00, Duration: 30 day, Stop date: 04/08/13 16:00:00 tramadol 100 mg, 2 tab, PO No Longer Alex [facility] Route: PO, Active 2012 Medical Drug form: Center TAB, Q6H, Dosing Weight 56, kg, Start date: 03/09/13 18:00:00, Duration: 30 day, Stop date: 04/08/13 12:00:00 ibuprofen 400 mg 800 mg, 2 tab, PO No Longer Hernandez [facility] oral tablet Route: PO, Active 2012 Medical Drug form: Center TAB, Q6H, Dosing Weight 56, kg, PRN Pain, Start date: 03/09/13 17:32:00, Duration: 30 day, Stop date: 04/08/13 17:31:00 Lidoderm 5% 1 patch, TOP No Longer Alex [facility] topical film Route: TOP, Active 2012 Medical (patch) Daily, Drug Center form: FILM, on 12 hrs and off 12 hrs, Start date: 03/09/13 17:00:00, Duration: 30 day, Stop date: 04/07/13 17:00:00, Remove after 12 hoursRemove after 12 hours Celebrex 200 mg, Route: PO No Longer Johnson [facility] PO, Drug form: Active 2012 Medical CAP, BID, Center Dosing Weight 56, kg, Start date: 03/09/13 17:00:00, Duration: 30 day, Stop date: 04/08/13 9:00:00 HYDROmorphone 15 mg, 30 mL, IV No Longer Meiner [facility] 0.5mg/mL [employer] Route: IV, [employer] Active 2012 Medical (15mg/30 mL) 15 Dose: 0.2 mg, Center mg [employer] Lockout: 8 minutes, 4 Hour Limit (In MG): 6, Drug Form: INJ, Continuous, STAT, Start date: 03/09/13 16:20:00, Duration: 30 day, Stop date: 04/08/13 16:19:00 [place] 10/325 1 tab, Route: PO No Longer Johnson [facility] oral tablet PO, Drug Form: Active 2012 Medical TAB, Dosing Center Weight 56, kg, Q4H, Start date: 03/09/13 16:00:00, Duration: 30 day, Stop date: 04/08/13 12:00:00 Robaxin 1,000 mg, 2 PO No Longer Johnson 03/09[facility] tab, Route: Active 2012 Medical PO, Drug form: [place] TAB, Q8H, Dosing Weight 56, kg, Start date: 03/09/13 16:00:00, Duration: 30 day, Stop date: 04/08/13 8:00:00 Dilaudid 2 mg, 1 mL, IV No Longer Hernandez 03/09[facility] Route: IV, Active 2012 Medical Drug form: [place] INJ, Q2H, Dosing Weight 56, kg, PRN Pain, Start date: 03/09/13 15:47:00, Stop date: 03/09/13 21:00:00 Celebrex 400 mg, 4 cap, PO No Longer Johnson 03/09[facility] Route: PO, Active 2012 Medical Drug form: [place] CAP, ONCE, Dosing Weight 56, kg, Start date: 03/09/13 15:20:00, Stop date: 03/09/13 15:20:00 Lyrica 300 mg, 3 cap, PO No Longer Johnson 03/09[facility] Route: PO, Active 2012 Medical Drug form: [place] CAP, ONCE, Dosing Weight 56, kg, Start date: 03/09/13 15:19:00, Stop date: 03/09/13 15:19:00 ondansetron 4 mg, 2 mL, IVP No Longer Kirk 03/09[facility] Route: IVP, Active 2012 Medical Drug form: [place] INJ, ONCE, Dosing Weight 56, kg, PRN Nausea & Vomiting, Start date: 03/09/13 12:05:00 flumazenil 0.2 mg, 2 mL, IVP No Longer Kirk 03/09[facility] Route: IVP, Active 2012 Medical Drug form: [place] INJ, PRN, Dosing Weight 56, kg, PRN Benzodiazepine Reversal, Initial dose, Start date: 03/09/13 12:05:00, Duration: 30 day, Stop date: 04/08/13 12:04:00 naloxone 0.04 mg, 0.1 IVP No Longer Kirk 03/09[facility] mL, Route: Active 2012 Medical IVP, [...] Route: PO, Active 2012 Medical Drug form: [place] TAB, Q6H, Dosing Weight 56, kg, PRN as needed for nausea/vomitin g, Start date: 03/09/13 11:43:00, Duration: 30 day, Stop date: 04/08/13 11:42:00 Zofran 4 mg, 1 tab, [facility] Route: PO, 2012 Medical Drug form: [place] TAB, ONCE, Dosing Weight 56, kg, Start date: 03/09/13 11:43:00, Stop date: 03/09/13 11:43:00 Saline Flush 5 ml, Route: IVP No Longer Esquenazi Cait 0.9% IVP, Drug Active [place] 2012 Medical Form: INJ, [place] Dosing Weight 56.818, kg, Q12H, Start date: 03/07/13 21:00:00, Duration: 30 day, Stop date: 04/06/13 9:00:00 morphine Sulfate 1 mg, 0.5 mL, IV No Longer Alex 03/08[facility] Cait Route: IV, Active 2012 Medical Drug form: Center INJ, Q2H, Dosing Weight 56, kg, PRN as needed for pain, Start date: 03/07/13 20:48:00, Duration: 30 day, Stop date: 04/06/13 20:47:00 vancomycin + 1.25 gm, IV No Longer Cheli Cait Sodium Chloride Route: IV, Active 2012 Medical 0.9% IV 250 mL [id number], Center Dosing Weight 56.818, kg, Start date: 03/07/13 20:00:00, Stop date: 04/06/13 8:00:00 cefepime 1 gm, Route: IVPB No Longer Floyd [facility] IVPB, Drug Active 2012 Medical form: INJ, Center ABXQ8H, Dosing Weight 56.818, kg, (CrCl >/=50 ml/min), Start date: 03/07/13 19:00:00, Duration: 30 day, Stop date: 04/06/13 11:00:00 Keflex 500 mg, 1 cap, PO No Longer Floyd [facility] Route: PO, Active 2012 Medical Drug form: Center CAP, Q6H, Dosing Weight 56.818, kg, Start date: 03/07/13 18:00:00, Duration: 30 day, Stop date: 04/06/13 12:00:00 Saline Flush 5 ml, Route: IVP No Longer Esquenazi [facility] 0.9% IVP, Drug Active [place] 2012 Medical Form: INJ, Center Dosing Weight 56.818, kg, PRN, PRN Line Flush, Start date: 03/07/13 17:42:00, Duration: 30 day, Stop date: 04/06/13 17:41:00 Sodium Chloride 1,000 mL, IV No Longer Esquenazi [facility] 0.9% IV 1,000 mL Rate: 50 [...] 2 tab, Route: PO No Longer Alex Cait drocodone 325 PO, Drug Form: Active 2012 Medical mg-10 mg oral TAB, Dosing Center tablet Weight 56.818, kg, Q4H, PRN Pain Score 7-10, Start date: 03/07/13 17:42:00, Duration: 30 day, Stop date: 04/06/13 17:41:00 Omnipaque 98 mL, Route: IVP No Longer [facility] 350mg/ml IVP, Drug Active 2012 Medical Form: [facility] Dosing Weight 56.818, kg, ONCALL, STAT, Start date: 03/07/13 17:10:00, Duration: 1 doses or times, Weight=95 - 109kg -- "To be infused by Radiology Staff ONLY"Weig ht=95 - 109kg -- "To be infused by Radiology Staff ONLY" Zofran 4 mg, 2 mL, IVP No Longer [facility] Route: IVP, Active 2012 Medical Drug form: [place] INJ, ONCE, Dosing Weight 56.818, kg, Priority: STAT, Start date: 03/07/13 16:14:00, Stop date: 03/07/13 16:14:00 morphine Sulfate 4 mg, 1 mL, IVP No Longer [facility] Route: IVP, Active 2012 Medical Drug form: [place] INJ, ONCE, Dosing Weight 56.818, kg, Priority: STAT, Start date: 03/07/13 16:13:00, Stop date: 03/07/13 16:13:00 Pepcid 20 mg 20 mg, 1 tab, PO No Longer Iluonakhamhe [facility] oral tablet Route: PO, Active 2012 Medical Drug form: [place] TAB, Daily, Dosing Weight 63.009, kg, Start date: 02/18/13 9:00:00, Duration: 30 day, Stop date: 03/19/13 9:00:00 Zofran 4 mg oral 4 mg, 1 tab, PO Active [place] tablet PO, ONCE, 10 Lay 2012 Medical tab, Center Substitution Allowed, TAB dexamethasone 1 See Active Esquenazi [facility] mg oral tablet Instructions, Lay 2012 Medical with food, 36 Center tab, Substitution Allowedwith food Pepcid 20 mg 20 mg, 1 tab, PO Active Esqu[place] [facility] oral tablet PO, Daily, 50 Lay 2012 Medical tab, Center Substitution Allowed, TAB docusate sodium 100 mg, 1 cap, PO Active [place] 100 mg oral PO, Q12H, 50 Lay 2012 Medical capsule cap, Center Substitution Allowed, CAP acetaminophen-hy 1 tab, PO, PO Active [place] drocodone 325 Q4H, PRN, 50 Lay 2012 Medical mg-10 mg oral tab, Pain Center tablet Score 4-6, Substitution Allowed, Maintenance, TAB Phenergan 12.5 mg, 0.5 IVPB No Longer [place] mL, Route: Active 2012 Medical IVPB, Drug Center form: INJ, Q4H, Dosing Weight 63.009, kg, PRN Nausea & Vomiting, Start date: 02/17/13 18:19:00, Duration: 30 day, Stop date: 03/19/13 18:18:00 magnesium 2 gm, 50 mL, IVPB No Longer Claudette [facility] sulfate Route: IVPB, Active 2012 Medical Drug form: [place] INJ, ONCE, Start date: 02/17/13 4:32:00, Stop date: 02/17/13 4:32:00 cefazolin 1 gm, Route: IVPB No Longer Keith [facility] IVPB, Drug Active 2012 Medical form: PDR/INJ, [place] ABXQ8H, Start date: 02/16/13 22:30:00, Duration: 1 doses or times, Stop date: 02/16/13 22:30:00 Dilaudid 0.5 mg, 0.25 IVP No Longer Shagagi [facility] mL, Route: Active 2012 Medical IVP, Drug Center form: INJ, ONCE, Dosing Weight 61.364, kg, Priority: STAT, Start date: 02/16/13 22:20:00, Stop date: 02/16/13 22:20:00 FENTanyl patch 1 patch, TOP No Longer Shagagi [facility] 75 mcg/hr Route: TOP, Active 2012 Medical Drug Form: [place] ERFILM, Dosing Weight 61.364, kg, Q72H, STAT, Start date: 02/16/13 21:11:00, Duration: 30 day, Stop date: 03/15/13 21:11:00 Saline Flush 5 ml, Route: IVP No Longer Keith [facility] 0.9% IVP, Drug Active 2012 Medical Form: INJ, Center Dosing Weight 61.364, kg, Q12H, Start date: 02/16/13 21:00:00, Duration: 30 day, Stop date: 03/18/13 9:00:00 docusate 100 mg, 1 cap, PO No Longer Keith [facility] Route: PO, Active 2012 Medical Drug form: Center CAP, Q12H, Dosing Weight 61.364, kg, Start date: 02/16/13 21:00:00, Duration: 30 day, Stop date: 03/18/13 9:00:00 senna 8.6 mg, 1 tab, PO No Longer Keith [facility] Route: PO, Active 2012 Medical Drug Form: Center TAB, Dosing Weight 61.364, kg, Q12H, Start date: 02/16/13 21:00:00, Duration: 30 day, Stop date: 03/18/13 9:00:00 famotidine 20 mg, 2 mL, IVP No Longer Iluon[place]hamhe [facility] Route: IVP, Active 2012 Medical Drug form: Center INJ, Q12H, Dosing Weight 61.364, kg, Start date: 02/16/13 21:00:00, Duration: 30 day, Stop date: 03/18/13 9:00:00 Dilaudid 0.5 mg, Route: IV No Longer Narciso [facility] IV, ONCE, Active 2012 Medical Dosing Weight Center 61.364, kg, PRN Pain, Start date: 02/16/13 20:04:00 diphenhydrAMINE 12.5 mg, 0.25 IVP No Longer [facility] 02/16[facility] mL, Route: Active 2012 Medical IVP, Drug Center form: INJ, PRN, Dosing Weight 61.364, kg, PRN Itching, Start date: 02/16/13 18:44:00, Duration: 1 day, Stop date: 02/17/13 18:43:00 flumazenil 0.2 mg, 2 mL, IVP No Longer Dais [facility] Route: IVP, Active 2012 Medical Drug form: Center INJ, PRN, Dosing Weight 61.364, kg, PRN Benzodiazepine Reversal, Initial dose, Start date: 02/16/13 18:44:00, Duration: 1 day, Stop date: 02/17/13 18:43:00 naloxone 0.04 mg, 0.1 IVP No Longer Dais [facility] mL, Route: Active 2012 Medical IVP, Drug Center form: INJ, Q2MIN, Dosing Weight 61.364, kg, PRN Narcotic Reversal, Start date: 02/16/13 18:44:00, Duration: 8 doses or times, Stop date: 02/17/13 0:00:00 morphine Sulfate 2 mg, 1 mL, IVP No Longer Dais [facility] Route: IVP, Active 2012 Medical Drug form: Center INJ, Q5Min, Dosing Weight 61.364, kg, PRN Pain Score 4-6, Start date: 02/16/13 18:44:00, Duration: 5 doses or times, Stop date: 02/17/13 0:00:00 ondansetron 4 mg, 2 mL, IVP No Longer [facility] Route: IVP, Active 2012 Medical Drug form: Center INJ, ONCE, Dosing Weight 61.364, kg, PRN Nausea & Vomiting, Start date: 02/16/13 18:44:00 promethazine 6.25 mg, 0.25 IVPB No Longer Dais [place] mL, Route: Active 2012 Medical IVPB, Drug Center form: INJ, ONCE, Dosing Weight 61.364, kg, PRN Nausea & Vomiting, Start date: 02/16/13 18:44:00 dexamethasone 4 mg, 1 tab, PO No Longer Keith [facility] Route: PO, Active 2012 Medical Drug form: Center TAB, Q6H, Dosing Weight 61.364, kg, Start date: 02/16/13 18:00:00, Duration: 30 day, Stop date: 03/18/13 12:00:00 cefazolin (SCIP) 1 gm, Route: IVPB No Longer Keith [facility] IVPB, Drug Active 2012 Medical form: INJ, Center Q8H, Dosing Weight 61.364, kg, Start date: 02/16/13 16:00:00, Duration: 1 doses or times, Stop date: 02/16/13 16:00:00 Dextrose 50% 12.5 gm, 25 IVP No Longer Keith [facility] Syringe mL, Route: Active 2012 Medical IVP, Drug Center Form: INJ, Dosing Weight 61.364, kg, PRN, PRN Abnormal Lab Result, Start date: 02/16/13 13:35:00, Duration: 30 day, Stop date: 03/18/13 13:34:00 insulin regular 3 unit, 0.03 SUB-Q No Longer Keith [facility] 100 units/mL mL, Route: Active 2012 [facility] human SUB-Q, Drug Center recombinant form: SOLN, PRN, Dosing Weight 61.364, kg, PRN Abnormal Lab Result, Start date: 02/16/13 13:35:00, Duration: 30 day, Stop date: 03/18/13 13:34:00 Saline Flush 5 ml, Route: IVP No Longer Keith [facility] 0.9% IVP, Drug Active 2012 Medical Form: INJ, Center Dosing Weight 61.364, kg, PRN, PRN Line Flush, Start date: 02/16/13 13:35:00, Duration: 30 day, Stop date: 03/18/13 13:34:00 morphine Sulfate 1 mg, 0.5 mL, IVP No Longer Keith [facility] Route: IVP, Active 2012 Medical Drug form: Center INJ, Q1H, Dosing Weight 61.364, kg, PRN Pain Score 7-10, Start date: 02/16/13 13:35:00, Duration: 30 day, Stop date: 03/18/13 13:34:00 acetaminophen-hy 2 tab, Route: PO No Longer Keith [facility] drocodone 325 PO, Drug Form: Active 2012 Medical mg-10 mg oral TAB, Dosing Center tablet Weight 61.364, kg, Q4H, PRN Pain Score 7-10, Start date: 02/16/13 13:35:00, Duration: 30 day, Stop date: 03/18/13 13:34:00 dexamethasone 10 mg, 2.5 mL, IVP No Longer Keith [facility] Route: IVP, Active 2012 Medical Drug form: Center INJ, ONCE, Dosing Weight 61.364, kg, Start date: 02/16/13 13:35:00, Stop date: 02/16/13 13:35:00 bisacodyl 10 mg, 1 supp, [place] [facility] Long[facility] Route: UT, Active 2012 Medical Drug form: [place] SUPP, Daily, Dosing Weight 61.364, kg, PRN Constipation, Start date: 02/16/13 13:35:00, Duration: 30 day, Stop date: 03/18/13 13:34:00 Sodium Chloride 1,000 mL, [facility] IV 1,000 mL Rate: [...] Route: PO, Active 2012 Medical Drug form: [place] TAB, PRE OP, Dosing Weight 61.364, kg, Start date: 02/16/13 11:00:00, Duration: 1 doses or times, Stop date: 02/17/13 0:00:00 cefazolin 2 gm, 50 mL, IVPB No Longer Claudette Cait Route: IVPB, Active 2012 Medical Drug form: [place] INJ, PRE OP, Start date: 02/16/13 3:00:00, Duration: 1 day, Stop date: 02/17/13 2:59:00 Allergies, Adverse Reactions, Alerts Substance Category Reaction Severity Reaction Status Date Comments Source type Reported Esoterica propensity Adverse Active [facility] with to adverse Reaction Medical Sunscreen reactions to [place] substance Immunizations Immunization Date Given Site Status Last Updated Comments Source Results Order Name Results Value Reference Date Interpretation Comments Source Range URINE AND UA Leuk Est Moderate Negative 11/28 [facility] *ABN* [place] (11/29/15 3:49 AM) URINE AND UA WBC 54 /HPF 0 - 5 11/28 [facility] URINE AND UA Bacteria Occasional None Seen 11/28 [facility] /HPF /HPF /2015 [facility] URINE AND UA <=1.0 0.1 - 1.0 11/28 [facility] Urobilinogen mg/dL [facility] URINE AND UA Mucus Moderate None Seen 11/28 [facility] /LPF /LPF [facility] URINE AND UA Sq Epi None Seen 11/28 [facility] URINE AND UA Color Yellow Yellow 11/28 [facility] *NA* [place] (11/29/15 3:49 AM) URINE AND UA Turbidity Clear Clear 11/28 [facility] (11/29/15 3:49 AM) [place] URINE AND UA Spec Grav 1.019 <=1.030 11/28 [facility] URINE AND UA Protein 20 mg/dL Negative 11/28 [facility] mg/dL [facility] URINE AND UA pH 6.0 5.0 - 8.0 11/28 [facility]2015 [facility] URINE AND UA Glucose Negative Negative 11/28 [facility] mg/dL mg/dL [facility] URINE AND UA Ketones Negative Negative 11/28 [facility] mg/dL mg/dL [facility] URINE AND UA Bili Negative Negative 11/28 [facility] *NA* [place] (11/29/15 3:49 AM) URINE AND UA Blood Trace Negative 11/28 [facility] *ABN* [place] (11/29/15 3:49 AM) URINE AND UA Nitrite Negative Negative 11/28 [facility] (11/29/15 3:49 AM) [place] URINE AND UA RBC 3 /HPF 0 - 2 11/28 [facility] BLOOD BANK Antibody Scrn Negative 11/28 [facility] (11/29/15 1:53 AM) [place] BLOOD BANK ABO/Rh O POS 11/28 [facility] ELECTROLYTE AGAP 10.8 meq/L 10.0 - 11/28 [facility] S 20.0 [facility] ELECTROLYTE eGFR 122 11/28 Result Comment: The eGFR is calculated using the CKD-EPI formula. In most young, healthy individuals the eGFR will be > 90 mL/min/1.73m2. The eGFR declines with age. An eGFR of 60-89 may be normal in [facility] mL/min/1.7 some populations, particularly the elderly, for whom the CKD-EPI formula has not been extensively validated. Use of the eGFR is not recommended in the following populations: [address] Individuals with unstable creatinine concentrations, including [...] Lvl 111 meq/L 95 - 109 11/28 [facility] ELECTROLYTE CO2 24 meq/L 24 - 32 11/28 [facility] ELECTROLYTE Calcium Lvl 9.1 mg/dL 8.5 - 10.5 11/28 [facility] ELECTROLYTE Glucose Lvl 110 mg/dL 70 - 99 11/28 [facility] ELECTROLYTE Sodium Lvl 142 meq/L 135 - 145 11/28 [facility] ELECTROLYTE Creatinine 0.55 mg/dL 0.50 - 11/28 [facility] Lvl 1.40 [facility] ELECTROLYTE BUN 14 mg/dL 7 - 22 11/28 [facility] ELECTROLYTE Potassium Lvl 3.8 meq/L 3.5 - 5.1 11/28 [facility] HEMATOLOGY INR 1.02 0.85 - 11/28 [facility] 1.17 [facility] HEMATOLOGY PTT 29.1 s 22.9 - 11/28 [place] 35.8 /2015 [facility] HEMATOLOGY PT 13.7 s 12.0 - 11/28 [facility] 14.7 [facility] HEMATOLOGY RDW 13.2 % 11.5 - 11/28 14.5 /2015 [facility] HEMATOLOGY MCH 31.7 pg 27.0 - 11/28 31.0 [facility] HEMATOLOGY Hct 37.6 % 36.0 - 11/28 48.0 [facility] HEMATOLOGY MCV 94.4 fL 80.0 - 11/28 98.0 [facility] HEMATOLOGY Hgb 12.6 g/dL 12.0 - 11/28 16.0 [facility] HEMATOLOGY MCHC 33.5 g/dL 32.0 - 11/28 36.0 [facility] HEMATOLOGY Platelet 212 K/CMM 133 - 450 11/28 [facility] HEMATOLOGY MPV 10.8 fL 7.4 - 10.4 11/28 [facility] HEMATOLOGY WBC 9.1 K/CMM 3.7 - 10.4 11/28 [facility] HEMATOLOGY RBC 3.98 M/CMM 4.20 - 11/28 5.40 [facility] HEMATOLOGY Basophils # 0.1 K/CMM 0.0 - 0.2 11/28 [facility] HEMATOLOGY Monocytes # 0.7 K/CMM 0.0 - 0.8 11/28 [facility] HEMATOLOGY Lymphocytes 15.5 % 20.0 - 11/28 40.0 [facility] HEMATOLOGY Lymphocytes # 1.4 K/CMM 1.0 - 5.5 11/28 [facility] HEMATOLOGY Segs-Bands # 7.0 K/CMM 1.5 - 8.1 11/28 [facility] HEMATOLOGY Eosinophils 0.1 % 0.0 - 4.0 11/28 [facility] HEMATOLOGY Basophils 0.6 % 0.0 - 1.0 11/28 [facility] HEMATOLOGY Monocytes 7.2 % 2.0 - 12.0 11/28 [facility] HEMATOLOGY Segs 76.6 % 45.0 - 11/28 [facility] 75.0 [facility] Spine Spine lumbar EXAM: MRI LUMBAR SPINE WITHOUT CONTRAST 11/28 - [facility] lumbar wo wo contrast /2015 - [facility] contrast MRI This report was dictated by a Turbine Operator/ Fellow. I have personally reviewed the images [...] CT LUMBAR SPINE WITHOUT CONTRAST 11/28 - [facility] contrast /2015 - [facility] contrast CT CT Center DATE: 11/29/2015 212 [...] eGFR of 60-89 may be normal in [facility] mL/min/1. some populations, particularly the elderly, for whom the CKD-EPI formula has not been extensively validated. Use of the eGFR is not recommended in the following populations: [place] [address] Center Individuals with unstable creatinine concentrations, including [...] 106 meq/L 95 - 109 03/10 Normal [facility] CHEMISTRY Calcium Lvl 8.8 mg/dL 8.5 - 10.5 03/10 Normal [facility] CHEMISTRY CO2 29 meq/L 24 - 32 03/10 Normal [facility] CHEMISTRY AGAP 10.2 meq/L 10.0 - 08 Normal [facility] 20.0 [facility] CHEMISTRY BUN 7 mg/dL 7 - 22 03/10 Normal [facility] CHEMISTRY Creatinine 0.6 mg/dL 0.5 - 1.4 03/10 Normal [facility] Lvl Medical Center CHEMISTRY Sodium Lvl 141 meq/L 135 - 145 03/10 Normal [facility] Center CHEMISTRY Potassium Lvl 4.2 meq/L 3.5 - 5.1 03/10 Normal Medical Center CHEMISTRY Glucose Lvl 107 mg/dL 70 - 99 03/10 HI 3Interpretive Data: Adult reference range values reflect the clinical guidelines of the [place] [employer]. Medical Center Microbiolog Culture: AFB 03/09 [facility] y w/Smear [facility] Center Microbiolog Culture: 03/09 [facility] y Wound/Abscess Medical w/Gram Stain Center Microbiolog Culture: 03/09 [facility] y Anaerobic Medical Center Microbiolog Culture: 03/09 [facility] y Fungal [facility] w/Smear Center CHEMISTRY U Preg Negative Negative 03/09 Normal Medical (03/09/2013 08:40:35) Center BLOOD BANK ABO/Rh O POS 03/09 Unknown RESULTS [facility] Center BLOOD BANK Antibody Scrn Negative 03/09 Normal [facility] Medical (03/09/2013 08:40:00) Center CHEMISTRY [place] 6.0 ug/ml 03/09 NA 5Interpretive Data: Therapeutic Range: Trough: 10 - 20 ug/mL Medical Peak: 20 - 40 ug/mL [place] Potential Toxicity: >80 ug/mL CHEMISTRY Vanco Tr TND 0845 03/09 NA [facility] Center Microbiolog Culture: 03/09 [facility] y Wound/Abscess Medical w/Gram Stain Center HEMATOLOGY INR 0.97 0.85 - 03/08 Normal 6Interpretive Data: RECOMMENDED RANGES FOR PROTIME INR: [facility] 1. 2.0-3.0 for most medical and surgical thromboembolic states. Medical 2.5-3.5 for artificial heart valves and recurrent embolism. Center INR SHOULD BE USED ONLY FOR PATIENTS ON STABLE ANTICOAGULANT THERAPY. HEMATOLOGY PT 13.1 s 12.0 - 03/08 Normal [facility] 14.7 Medical Center HEMATOLOGY PTT 32.0 s 22.9 - 03/08 Normal 7Interpretive [facility] 35.8 Data: Heparin Medical Therapeutic Center Range: 57 - 92 Seconds IMMUNOLOGY [facility]-HIV 1/2 Negative Negative 03/07 NA [facility] Medical *NA* Center (03/07/2013 15:54:24) CHEMISTRY eGFR 97 03/07 2Result Comment: The eGFR is calculated using the CKD-EPI formula. In most young, healthy individuals the eGFR will be > 90 mL/min/1.73m2. The eGFR declines with age. An eGFR of 60-89 may be normal in [facility] mL/min/1.7 some populations, particularly the elderly, for whom the CKD-EPI formula has not been extensively validated. Use of the eGFR is not recommended in the following populations: [address] Individuals with unstable creatinine concentrations, including [...] 8.7 mg/dL 8.5 - 10.5 03/07 Normal [facility] CHEMISTRY CO2 28 meq/L 24 - 32 03/07 Normal [facility] CHEMISTRY Creatinine 0.8 mg/dL 0.5 - 1.4 03/07 [facility] CHEMISTRY Glucose Lvl 112 mg/dL 70 - 99 03/07 HI 4Interpretive Data: Adult reference range values reflect the clinical guidelines of the [place] [employer]. [facility] CHEMISTRY BUN 11 mg/dL 7 - 22 03/07 Normal [facility] CHEMISTRY Sodium Lvl 138 meq/L 135 - 145 03/07 Normal [facility] CHEMISTRY Potassium Lvl 4.3 meq/L 3.5 - 5.1 03/07 Normal [facility] CHEMISTRY Chloride Lvl 102 meq/L 95 - 109 03/07 Normal [facility] CHEMISTRY AGAP 12.3 meq/L 10.0 - 03/07 Normal [facility] 20.0 [facility] HEMATOLOGY MPV 8.6 fL 7.4 - 10.4 03/07 Normal [facility] HEMATOLOGY Platelet 230 K/CMM 133 - 450 03/07 [facility] HEMATOLOGY RDW 12.5 % 11.5 - 03/07 Normal [facility] 14.5 /2012 [facility] HEMATOLOGY MCHC 33.7 g/dL 32.0 - 08/ Normal [facility] 36.0 /2012 [facility] HEMATOLOGY WBC 8.1 K/CMM 3.7 - 10.4 08/ Normal /2012 [facility] HEMATOLOGY MCH 31.3 pg 27.0 - 08 HI [place] 31.0 /2012 [facility] HEMATOLOGY MCV 92.9 fL 81.0 - 08 Normal [facility] 99.0 /2012 [facility] HEMATOLOGY Hct 32.8 % 36.0 - 08/ LOW [facility] 48.0 /2012 [facility] HEMATOLOGY Hgb 11.1 g/dL 12.0 - 08/ LOW [facility] 16.0 /2012 [facility] HEMATOLOGY RBC 3.53 M/CMM 4.20 - 08 [facility] 5.40 /2012 [facility] HEMATOLOGY Segs 68.4 % 45.0 - 08/ Normal [facility] 75.0 /2012 [facility] HEMATOLOGY Basophils 0.5 % 0.0 - 1.0 / Normal [facility] HEMATOLOGY Eosinophils 2.0 % 0.0 - 4.0 08/ Normal /2012 [facility] HEMATOLOGY Monocytes 8.8 % 2.0 - 12.0 08/ Normal [facility] HEMATOLOGY Lymphocytes 20.3 % 20.0 - 08/03 [facility] 40.0 /2012 [facility] HEMATOLOGY Basophils # 0.0 K/CMM 0.0 - 0.2 08/ Normal [facility] HEMATOLOGY Eosinophils # 0.2 K/CMM 0.0 - 0.5 / Normal [facility] HEMATOLOGY Monocytes # 0.7 K/CMM 0.0 - 0.8 08/ Normal /2012 [facility] HEMATOLOGY Lymphocytes # 1.6 K/CMM 1.0 - 5.5 08/ Normal [facility] HEMATOLOGY Segs-Bands # 5.6 K/CMM 1.5 - 8.1 03/07 Normal [facility] Spine Spine EXAMINATION: SPINE CERVICAL CT 03/07 - [facility] cervical w cervical w - Medical [...] or redness appreciated COMPARISON: Preoperative MRI from [facility] on [facility] of 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 Spine Spine 03/07 - [facility] cervical wo cervical - Medical contrast [...] or redness appreciated COMPARISON: Preoperative MRI from [facility] on of 11/13/2012 showing tonsillar ectopia of [...] EXAMINATION: CT HEAD WITHOUT CONTRAST 03/07 - [facility] contrast CT contrast CT /2012 - [facility] Center DATE: 03/07/2013 at 1651 hours Read [...] contrast enhanced sequence. COMPARISON: MRI brain from [facility] brain of 2012 DISCUSSION: A small fluid [...] Notify 02/18 NA Cait GLUCOSE RN/ /2012 [facility] TESTING [place] BEDSIDE Gluc POC 202 mg/dL 70 - 99 02/18 HI 1Interpretive [facility] GLUCOSE [place] /2012 Data: [facility] TESTING [facility] Upper Reportable Limit: 200 mg/dL. CHEMISTRY Ca Norm mgdL 4.76 mg/dL 4.65 - 02/18 Normal [facility] 5. [facility] CHEMISTRY Ca Ion mgdL 4.76 mg/dL 4.65 - 02/18 Normal [facility] . [facility] CHEMISTRY Ca Norm 1.19 1.16 - 02/18 Normal [facility] mMol/L 1. [facility] CHEMISTRY Ca Ion 1.19 1.16 - 02/18 Normal [facility] mMol/L 1. [facility] CHEMISTRY Calcium Lvl 8.4 mg/dL 8.5 - 10.5 02/18 LOW [facility] CHEMISTRY CO2 26 meq/L 24 - 32 02/18 Normal [facility] CHEMISTRY Chloride Lvl 107 meq/L 95 - 109 02/18 Normal [facility] CHEMISTRY Potassium Lvl 4.5 meq/L 3.5 - 5.1 02/18 Normal [facility] CHEMISTRY Sodium Lvl 142 meq/L 135 - 145 02/18 Normal [facility] CHEMISTRY Glucose Lvl 197 mg/dL 70 - 99 02/18 HI 7Interpretive Data: Adult reference range values reflect the clinical guidelines of the [place] [employer]. [facility] CHEMISTRY Creatinine 0.7 mg/dL 0.5 - 1.4 02/18 Normal [facility] CHEMISTRY BUN 14 mg/dL 7 - 02/18 Normal [facility] CHEMISTRY eGFR 114 02/18 NA 4Result Comment: The eGFR is calculated using the CKD-EPI formula. In most young, healthy individuals the eGFR will be > 90 mL/min/1.73m2. The eGFR declines with age. An eGFR of 60-89 may be normal in [facility] mL/min/1. some populations, particularly the elderly, for whom the CKD-EPI formula has not been extensively validated. Use of the eGFR is not recommended in the following populations: [address] Individuals with unstable creatinine concentrations, including [...] AGAP 13.5 meq/L 10.0 - 02/18 Normal [facility] 20.0 [facility] CHEMISTRY Magnesium Lvl 2.1 mg/dL 1.8 - 2.4 02/18 Normal [facility] CHEMISTRY Phosphorus 2.5 mg/dL 2.5 - 4.5 02/18 Normal [facility] HEMATOLOGY Monocytes 6.5 % 2.0 - 12.0 02/18 Normal [facility] HEMATOLOGY Segs-Bands # 10.7 K/CMM 1.5 - 8.1 02/18 HI [facility] Center HEMATOLOGY Basophils 0.2 % 0.0 - 1.0 02/18 Normal [facility] HEMATOLOGY Segs 85.8 % 45.0 - 02/18 HI [place] 75.0 /2012 Medical Center HEMATOLOGY Lymphocytes 7.5 % 20.0 - 07 LOW [place] 40.0 /2012 [facility] HEMATOLOGY Monocytes # 0.8 K/CMM 0.0 - 0.8 02/18 Normal [facility] HEMATOLOGY Lymphocytes # 0.9 K/CMM 1.0 - 5.5 02/18 LOW [facility] HEMATOLOGY MCHC 32.6 g/dL 32.0 - 02/18 Normal [facility] 36.0 [facility] HEMATOLOGY RDW 13.1 % 11.5 - 02/18 Normal [facility] 14.5 /2012 [facility] Center HEMATOLOGY MPV 9.8 fL 7.4 - 10.4 02/18 Normal [facility] Center HEMATOLOGY Platelet 229 K/CMM 133 - 450 02/18 Normal [facility] Center HEMATOLOGY MCV 95.5 fL 81.0 - 02/18 Normal [facility] 99.0 /2012 [facility] Center HEMATOLOGY Hct 33.0 % 36.0 - 02/18 [facility] [place] 48.0 /2012 Medical Center HEMATOLOGY MCH 31.1 pg 27.0 - 02/18 HI [place] 31.0 Medical Center HEMATOLOGY Hgb 10.8 g/dL 12.0 - 02/18 LOW [place] 16.0 [facility] Center HEMATOLOGY RBC 3.46 M/CMM 4.20 - 02/18 [facility] 5.40 /2013 Medical Center HEMATOLOGY WBC 12.5 K/CMM 3.7 - 10.4 02/18 HI Medical Center BEDSIDE Comment1 Notify 02/17 NA [facility] GLUCOSE RN/MD /2012 Medical TESTING Center BEDSIDE Gluc POC 185 mg/dL 70 - 99 02/17 HI 2Interpretive [facility] GLUCOSE [place] Data: Medical TESTING Center Upper Reportable Limit: 200 mg/dL. BEDSIDE Gluc POC 130 mg/dL 70 - 99 02/17 MD 3Interpretive [facility] GLUCOSE [place] Data: [facility] Center Upper Reportable Limit: 200 mg/dL. BEDSIDE Comment1 Notify 02/17 NA [facility] GLUCOSE RN/ /2012 Medical TESTING Center CHEMISTRY Phosphorus 3.4 mg/dL 2.5 - 4.5 02/17 Normal [facility] Center CHEMISTRY Magnesium Lvl 1.9 mg/dL 1.8 - 2.4 02/17 Normal [facility] Center CHEMISTRY AGAP 16.3 meq/L 10.0 - 02/17 Normal [facility] 20.0 [facility] Center CHEMISTRY Creatinine 0.6 mg/dL 0.5 - 1.4 02/[address] [facility] Center CHEMISTRY BUN 9 mg/dL 7 - 22 02/17 Normal [facility] Center CHEMISTRY Glucose Lvl 112 mg/dL 70 - 99 02/17 HI 8Interpretive Data: Adult reference range values reflect the clinical guidelines of the [place] [employer]. Medical Center CHEMISTRY Chloride Lvl 110 meq/L 95 - 109 02/17 HI [facility] CHEMISTRY Potassium Lvl 4.3 meq/L 3.5 - 5.1 02/17 Normal [facility]2012 [facility] CHEMISTRY Sodium Lvl 142 meq/L 135 - 145 02/17 Normal [facility] Center CHEMISTRY Calcium Lvl 8.3 mg/dL 8.5 - 10.5 02/17 LOW [facility] CHEMISTRY CO2 20 meq/L 24 - 32 02/17 LOW [facility]2012 [facility] CHEMISTRY eGFR 120 02/17 NA 5Result Comment: The eGFR is calculated using the CKD-EPI formula. In most young, healthy individuals the eGFR will be > 90 mL/min/1.73m2. The eGFR declines with age. An eGFR of 60-89 may be normal in [facility] mL/min/1.7 /2012 some populations, particularly the elderly, for whom the CKD-EPI formula has not been extensively validated. Use of the eGFR is not recommended in the following populations: [place] [address] Center Individuals with unstable creatinine concentrations, including [...] mgdL 4.76 mg/dL 4.65 - 02/17 Normal [facility] . [facility] CHEMISTRY Ca Norm 1.19 1.16 - 02/17 Normal [facility] mMol/L 09.03 [facility] CHEMISTRY Ca Ion mgdL 4.76 mg/dL 4.65 - 02/17 Normal [facility] . [facility] CHEMISTRY Ca Ion 1.19 1.16 - 02/17 Normal [facility] mMol/L 09.03 [facility] CHEMISTRY eGFR 97 02/17 NA 6Result Comment: The eGFR is calculated using the CKD-EPI formula. In most young, healthy individuals the eGFR will be > 90 mL/min/1.73m2. The eGFR declines with age. An eGFR of 60-89 may be normal in [facility] mL/min/1. some populations, particularly the elderly, for whom the CKD-EPI formula has not been extensively validated. Use of the eGFR is not recommended in the following populations: [address] Individuals with unstable creatinine concentrations, including [...] 3.9 meq/L 3.5 - 5.1 02/17 Normal [facility] CHEMISTRY Chloride Lvl 114 meq/L 95 - 109 02/17 HI [facility] CHEMISTRY Sodium Lvl 145 meq/L 135 - 145 02/17 Normal [facility] CHEMISTRY Creatinine 0.8 mg/dL 0.5 - 1.4 02/[address] [facility] CHEMISTRY BUN 9 mg/dL 7 - 22 02/17 Normal [facility] CHEMISTRY Calcium Lvl 8.0 mg/dL 8.5 - 10.5 02/17 LOW [facility] CHEMISTRY CO2 23 meq/L 24 - 32 02/17 LOW [facility] CHEMISTRY Glucose Lvl 108 mg/dL 70 - 99 02/17 HI 9Interpretive Data: Adult reference range values reflect the clinical guidelines MH of the [place] [employer]. Medical Center CHEMISTRY AGAP 11.9 meq/L 10.0 - 07 Normal [place] 20.0 /2012 [facility] HEMATOLOGY Segs 89.9 % 45.0 - 07/ HI [place] 75.0 /2012 [facility] HEMATOLOGY Lymphocytes 8.6 % 20.0 - 07 LOW [place] 40.0 /2012 [facility] HEMATOLOGY Basophils 0.3 % 0.0 - 1.0 07/ Normal [facility] HEMATOLOGY Segs-Bands # 6.2 K/CMM 1.5 - 8.1 07/ Normal [facility] HEMATOLOGY Lymphocytes # 0.6 K/CMM 1.0 - 5.5 07 LOW [facility] HEMATOLOGY Eosinophils 0.1 % 0.0 - 4.0 07/ Normal [facility] HEMATOLOGY Monocytes 1.1 % 2.0 - 12.0 07/ LOW [facility] HEMATOLOGY Monocytes # 0.1 K/CMM 0.0 - 0.8 02/17 Normal [facility] HEMATOLOGY Hct 34.3 % 36.0 - 07 LOW [place] 48.0 /2012 [facility] HEMATOLOGY MCV 95.7 fL 81.0 - 07 Normal [place] 99.0 /2012 [facility] HEMATOLOGY WBC 6.9 K/CMM 3.7 - 10.4 07 Normal /2012 [facility] HEMATOLOGY RDW 13.0 % 11.5 - 07/ Normal [place] 14.5 /2012 [facility] HEMATOLOGY MCHC 33.3 g/dL 32.0 - 07 Normal [place] 36.0 /2012 [facility] HEMATOLOGY Platelet 232 K/CMM 133 - 450 07/ Normal [facility] HEMATOLOGY MCH 31.9 pg 27.0 - 0716 HI [place] 31.0 /2012 [facility] HEMATOLOGY RBC 3.59 M/CMM 4.20 - 0716 LOW [place] 5.40 /2012 [facility] HEMATOLOGY Hgb 11.4 g/dL 12.0 - 07 LOW [place] 16.0 /2012 [facility] HEMATOLOGY MPV 9.1 fL 7.4 - 10.4 07/ Normal [facility] HEMATOLOGY PTT 33.5 s 22.9 - 07 Normal 12Interpretiv MH [place] 35.8 /2013 e Data: [facility] Heparin Center Therapeutic Range: 57 - 92 Seconds HEMATOLOGY INR 1.14 0.85 - 02/17 Normal 10Interpretive Data: RECOMMENDED RANGES FOR PROTIME INR: [facility] . 2.0-3.0 for most medical and surgical thromboembolic states. Medical 2.5-3.5 for artificial heart valves and recurrent embolism. Center INR SHOULD BE USED ONLY FOR PATIENTS ON STABLE ANTICOAGULANT THERAPY. HEMATOLOGY PT 14.8 s 12.0 - 02/17 [facility] [place] 14. [facility] BLOOD BANK Antibody Scrn Negative 02/16 Normal [facility] RESULTS Medical (02/16/2013 10:25:29) Center BLOOD BANK ABO/Rh O POS 02/16 Unknown [facility] HEMATOLOGY Lymphocytes 44.8 % 20.0 - 07 [facility] [place] 40.0 [facility] HEMATOLOGY Segs 36.8 % 45.0 - 07 LOW [place] 75.0 [facility] HEMATOLOGY Eosinophils 4.9 % 0.0 - 4.0 / [facility] HEMATOLOGY Monocytes 12.1 % 2.0 - 12.0 07/ HI [facility] HEMATOLOGY Basophils 1.4 % 0.0 - 1.0 / HI [facility] HEMATOLOGY Lymphocytes # 2.3 K/CMM 1.0 - 5.5 07/ Normal [facility] HEMATOLOGY Segs-Bands # 1.8 K/CMM 1.5 - 8.1 02/11 Normal [facility] HEMATOLOGY Monocytes # 0.6 K/CMM 0.0 - 0.8 / Normal [facility] HEMATOLOGY Eosinophils # 0.2 K/CMM 0.0 - 0.5 07/ Normal [facility] HEMATOLOGY Basophils # 0.1 K/CMM 0.0 - 0.2 / Normal [facility] HEMATOLOGY PTT 32.5 s 22.9 - 02/11 Normal 13Interpretiv [facility] 35. e Data: [facility] Heparin Center Therapeutic Range: 57 - 92 Seconds HEMATOLOGY PT 14.2 s 12.0 - 0710 Normal [place] 14. [facility] HEMATOLOGY INR 1.08 0.85 - 02/11 Normal 11Interpretive Data: RECOMMENDED RANGES FOR PROTIME INR: [facility] 1.17 /2012 2.0-3.0 for most medical and surgical thromboembolic states. Medical 2.5-3.5 for artificial heart valves and recurrent embolism. Center INR SHOULD BE USED ONLY FOR PATIENTS ON STABLE ANTICOAGULANT THERAPY. HEMATOLOGY MCHC 33.3 g/dL 32.0 - 07/10 Normal [facility] 36.0 /2012 [facility] HEMATOLOGY MPV 9.4 fL 7.4 - 10.4 07/ Normal /2012 [facility] HEMATOLOGY RDW 12.8 % 11.5 - 07/10 Normal [facility] 14.5 /2012 [facility] HEMATOLOGY Platelet 232 K/CMM 133 - 450 07/ Normal /2012 [facility] HEMATOLOGY WBC 5.0 K/CMM 3.7 - 10.4 07/ Normal /2012 [facility] HEMATOLOGY Hct 36.4 % 36.0 - 07/10 Normal [facility] 48.0 /2012 [facility] HEMATOLOGY MCV 94.7 fL 81.0 - 0710 Normal [facility] 99.0 /2012 [facility] HEMATOLOGY MCH 31.5 pg 27.0 - 07/10 HI [facility] 31.0 /2012 [facility] HEMATOLOGY Hgb 12.1 g/dL 12.0 - 0710 Normal [facility] 16.0 /2012 [facility] HEMATOLOGY RBC 3.85 M/CMM 4.20 - 07/10 LOW [facility] 5.40 /2013 [facility] Vital Signs Vital Sign Value Date Comments Source Systolic (mm Hg) 99 11/29/2015 [facility] Diastolic (mm Hg) 53 11/29/2015 [facility] Temperature Oral (F) 97.2 F 11/29/2015 [facility] Respitory Rate 18 11/29/2015 [facility] Heart Rate 53 11/29/2015 [facility] Systolic (mm Hg) 99 11/29/2015 [facility] Diastolic (mm Hg) 63 11/29/2015 [facility] Systolic (mm Hg) 94 11/29/2015 [facility] Diastolic (mm Hg) 53 11/29/2015 [facility] Respitory Rate 18 11/29/2015 [facility] Heart Rate 51 11/29/2015 [facility] Temperature Oral (F) 97.6 F 11/29/2015 [facility] Temperature Oral (F) 97 F 11/29/2015 [facility] Heart Rate 52 11/29/2015 [facility] Center Respitory Rate 18 11/29/2015 [facility] Weight 63.636 11/29/2015 [facility] BMI Calculated 20.13 11/29/2015 [facility] Height 177.8 cm 11/29/2015 [facility] Heart Rate 58 03/10/2013 [facility] Temperature Oral (F) 97.8 F 03/10/2013 [facility] Center Respitory Rate 16 03/10/2013 [facility] Center Diastolic (mm Hg) 65 03/10/2013 [facility] Center Systolic (mm Hg) 104 03/10/2013 [facility] Heart Rate 47 03/10/2013 [facility] Center Respitory Rate 16 03/10/2013 [facility] Temperature Oral (F) 97.9 F 03/10/2013 [facility] Center Diastolic (mm Hg) 66 03/10/2013 [facility] Center Systolic (mm Hg) 100 03/10/2013 [facility] Respitory Rate 16 03/10/2013 [facility] Heart Rate 92 03/10/2013 [facility] Temperature Oral (F) 98.1 F 03/10/2013 [facility] Center Diastolic (mm Hg) 69 03/10/2013 [facility] Center Systolic (mm Hg) 103 03/10/2013 [facility] Weight 56 03/09/2013 [facility] Height 177.8 cm 03/09/2013 [facility] Weight 56 03/07/2013 [facility] Weight 56.818 03/07/2013 [facility] Height 177.8 cm 03/07/2013 [facility] Center Systolic (mm Hg) 96 02/18/2013 [facility] Center Diastolic (mm Hg) 49 02/18/2013 [facility] [facility] Respitory Rate 18 02/18/2013 [facility] Heart Rate 60 02/18/2013 [facility] Temperature Oral (F) 97.6 F 02/18/2013 [facility] Center Diastolic (mm Hg) 63 02/18/2013 [facility] Center Systolic (mm Hg) 102 02/18/2013 [facility] Center Respitory Rate 18 02/18/2013 [facility] Heart Rate 53 02/18/2013 [facility] Temperature Oral (F) 97.6 F 02/18/2013 [facility] Center Systolic (mm Hg) 99 02/18/2013 [facility] Diastolic (mm Hg) 56 02/18/2013 [facility] Respitory Rate 18 02/18/2013 [facility] Heart Rate 58 02/18/2013 [facility] Temperature Oral (F) 98.0 F 02/18/2013 [facility] Weight 63.009 02/17/2013 [facility] Height 177.8 cm 02/17/2013 [facility] Height 162.4 cm 02/17/2013 [facility] Weight 61.364 02/17/2013 [facility] Height 177.8 cm 02/11/2013 [facility] Weight 61.364 02/11/2013 [facility] Encounters Location Location Encounter Encounter Reason Attending ADM DC Status Source Details Type Number For Provider Date Date Visit [facility] Inpatient [id number] KASSIE VARGAS 02/16 02/18 Active [facility] /2012 [facility] Inpatient [id number] INCISION KASSIE VARGAS 03/09 03/10 Active [facility] /2012 [facility] PAIN,PUR Center ULENT DISCHARG E FROM WOUND Outpatient [id number] KASSIE VARGAS 08/30 [facility] Outpatient [id number] KASSIE VARGAS 10/17 [facility] OBS [id number] [place] 11/28 11/28 [facility] Observation [facility] /2015 [facility] Outpatient [id number] ADOLFO 12/17 [facility] Outpatient [id number] NIKOLAY VARGAS C[facility] PER ABNER [id number]* * Procedures Procedure Code Date Perfomer Comments Source Appendectomy [id number] [facility] Augmentation [id number] [facility] Craniectomy<sup>1< [id number] Chiari [facility] /sup> [facility] Knee joint [id number] [facility] Oophorectomy [id number] [facility] Tubal ligation [id number] [facility] Craniectomy [id number] 1Chiari [facility] <sup>1</sup> [facility]
--- OUTSIDE RECORDS SUMMARY | 2018-03-03 21:45 | XMS REPORT | CCD ---
:[address] [facility] Care Team Providers Name Role Phone [...] mg, 1 supp, Route: 02/16/2013 02/16/2013 Discontinued SC, Drug form: SUPP, Daily, Dosing Weight 61.364, [...] values reflect the clinical guidelines of the [place] [employer].8Interpretive Data: Adult reference range values reflect the clinical guidelines of the [place] [employer].9Interpretive Data: Adult reference range values reflect the clinical guidelines of the [place] [employer].HEMATOLOGY Most recent to oldest 1 [...] Data: Heparin Therapeutic Range: 57 - 92 [id number] Data: Heparin Therapeutic Range: 57 - 92 Seconds
--- OUTSIDE RECORDS SUMMARY | 2018-03-03 21:45 | XMS REPORT | CCD ---
:1980 Author Organization [facility] Care Team Providers Name Role Phone Pedro [...] 30 mL, Route: IV, 03/09/2013 03/10/2013 Discontinued COMPLIANCE LEAD (15mg/30 mL) 15 mg COMPLIANCE LEAD Dose: 0.2 mg, COMPLIANCE LEAD Lockout: 8 minutes, 4 Hour Limit (In MG): 6, Drug Form: INJ, Continuous, STAT, Start date: 03/09/13 16:20:00, Duration: 30 day, Stop date: 04/08/13 16:19:00 vancomycin + Sodium 1.25 gm, Route: IV, 03/07/2013 03/10/2013 Discontinued Chloride 0.9% IV 250 mL [id number], Dosing Weight 56.818, kg, Start date: 03/07/13 [...] date: 03/07/13 16:14:00, Stop date: 03/07/13 16:14:00 [place] 10/325 oral tablet 1 tab, Route: PO, [...] values reflect the clinical guidelines of the [place] [employer].4Interpretive Data: Adult reference range values reflect the clinical guidelines of the [place] [employer].5Interpretive Data: Therapeutic Range: Trough: 10 [...] posr surgical wound fluif or non stat [id number] FINAL REPORTS Final ReportModerate Staphylococcus aureus PRELIMINARY [...] Of Choice. Phone Report Made To: NIYA, [id number], Savi Majano RN At: 03/08/2013 23:01:25 Called By: LIA Read Back Ok PROCEDURE:Culture: Wound/Abscess w/Gram Stain STATUS: Auth (Verified) BODY SITE: Neck COLLECTED DATE/TIME: 03/08/2013 19:00:00 SOURCE: Wound, Surg FREE TEXT SOURCE: O2 swab-back of head FINAL REPORTS Final ReportModerate Staphylococcus aureus Refer To Culture # [id number] collected 03-09-13 For Susceptibility ResultsPRELIMINARY REPORTS Preliminary ReportModerate Staphylococcus aureus Procedures Procedures Date Related Diagnosis Craniectomy 1 1Chiari Malformation
[2018-03-03 23:03] LABS: Urine Blood NEGATIVE (NEG); Urine Glucose NEGATIVE (NEG); Urine Protein NEGATIVE (NEG); Urine Specific Gravity 1.015 (1.005-1.030); Urine pH 6.5 (5.0-7.0)
[2018-03-03 23:20] LABS: BUN Blood Urea Nitrogen 12 mg/dL (7-18); Bicarbonate 30 mmol/L (21-32); Glucose Level 88 mg/dL (74-106); Magnesium 2.4 mg/dL (1.8-2.4); Phosphorus 4.4 mg/dL (2.5-4.9); Potassium 4.4 mmol/L (3.5-5.1); Sodium Level 140 mmol/L (136-145)
[2018-03-03 23:23] LABS: Urine Bacteria <20 /HPF (<20); Urine Culture Reflex Order NOT NEEDED; Urine RBC <5 /HPF (NONE SEEN)
[2018-03-03 23:33] LABS: Absolute Monocytes 0.6 K/uL (0.1-1.3); Absolute Neutrophil 4.8 K/uL (1.8-8.0); Basophils % 1.1 % (0-1.3); Eosinophils % 2.4 % (0-4.4); Hematocrit 39.5 % (36.0-45.0); Lymphocytes % 26.3 % (15.3-44.8); MCV 97.4 fL (80-100); MPV 8.3 fL (7.6-11.3); Monocytes % 8.1 % (3.3-12.3); RBC Red Blood Cell Count 4.05 M/uL (3.86-4.86)
--- NOTE | 2018-03-04 00:02 | ER ---
Nurse's Notes [facility] Name: Deyanira Del Castillo Age: 38 yrs Sex: Female : 1980 Arrival Date: 03/03/2018 Time: 21:39 Bed 25 Private MD: Diagnosis: Myalgia Presentation: 03/03 22:22 Presenting complaint: Patient states: she believes her kidneys are "acting up". Reports kr2 a history of kidney disease from an early age. She has been urinating a lot and has noticed a lot of foam in her urine. She has also noticed swelling in her legs and abdomen. Transition of care: patient was not received from another setting of care. Onset of symptoms is unknown. Risk Assessment: Do you want to hurt yourself or someone else? Patient reports no desire to harm self or others. Initial Sepsis Screen: Does the patient meet any 2 criteria? No. Patient's initial sepsis screen is negative. Does the patient have a suspected source of infection? No. Patient's initial sepsis screen is negative. Care prior to arrival: None. 22:22 Method Of Arrival: Ambulatory kr2 22:22 Acuity: VERA 3 kr2 Triage Assessment: 22:25 General: Appears in no apparent distress. uncomfortable, slender, well groomed, well kr2 developed, well nourished, Behavior is calm, cooperative, appropriate for age. Pain: Complains of pain in pelvis Pain Quality of pain is described as pressure, tender, Is continuous, Alleviated by nothing. 22:28 EENT: Oral mucosa is moist. Neuro: Level of Consciousness is awake, alert, obeys kr2 commands, Oriented to person, place, time, situation. Cardiovascular: Capillary refill < 3 seconds in bilateral fingers Patient's skin is warm and dry. Respiratory: Airway is patent Respiratory effort is even, unlabored, Respiratory pattern is regular, symmetrical. GI: Abdomen is distended. : Urine is clear, Denies burning with urination. Derm: Skin is intact, is healthy with good turgor, Skin is pink, warm \\T\\ dry. Musculoskeletal: Circulation, motion, and sensation intact. 23:02 EENT: Reports Metallic taste in mouth. 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 - Social history:: Smoking status: Patient/guardian denies using tobacco. - Ebola Screening: : No symptoms or risks identified at this time. Screenin:24 Abuse screen: Denies threats or abuse. Denies injuries from another. Nutritional kr2 screening: No deficits noted. Tuberculosis screening: No symptoms or risk factors identified. Fall Risk None identified. Assessment: 22:30 Reassessment: see triage assessment. kr2 Vital Signs: 22:24 BP 126 / 95; Pulse 63; Resp 17; Pulse Ox 98% on R/A; Weight 63.5 kg; Height 5 ft. 10 kr2 in. (177.80 cm); 03/04 00:14 BP 124 / 90; Pulse 60; Resp 17; Pulse Ox 100% on R/A; kr2 03/03 22:24 Body Mass Index 20.09 (63.50 kg, 177.80 cm) kr2 ED Course: 03/03 21:39 Patient arrived in ED. ds1 22:09 Jeffrey Gregory PA is PHCP. jr8 22:09 Fazal Garcia MD is Attending Physician. jr8 22:22 Frieda Ely, DOV is Primary Nurse. kr2 22:24 Triage completed. kr2 22:25 Arm band placed on. kr2 22:27 Patient has correct armband on for positive identification. Bed in low position. Call kr2 light in reach. Side rails up X 1. air conditioning mechanic on. Pulse ox on. NIBP on. Door closed. Warm blanket given. Head of bed elevated. 22:55 Inserted saline lock: 20 gauge in right antecubital area, using aseptic technique. kr2 Blood collected. 03/04 00:15 No provider procedures requiring assistance completed. IV discontinued, intact, kr2 bleeding controlled, No redness/swelling at site. Pressure dressing applied. Administered Medications: No medications were administered Outcome: 00:02 Discharge ordered by . jr8 00:15 Discharged to home ambulatory. kr2 00:15 Condition: good 00:15 Discharge instructions given to patient, Instructed on discharge instructions, follow up and referral plans. Demonstrated understanding of instructions, follow-up care. 00:15 Patient left the ED. kr2 Signatures: Marisol Ybarra ds1 Jeffrey Gregory PA PA jr8 Frieda Ely RN RN kr2 Corrections: (The following items were deleted from the chart) 03/03 22:27 22:24 BP 126 / 95; Pulse 63bpm; Resp 17bpm; Pulse Ox 98% RA; kr2 kr2
--- NOTE | 2018-03-04 00:03 | EDPHYS ---
Physician Documentation [facility] Name: Deyanira Del Castillo Age: 38 yrs Sex: Female : 1980 Arrival Date: 03/03/2018 Time: 21:39 Bed 25 Private MD: ED Physician Fazal Garcia HPI: 03/03 22:53 This 38 yrs old Female presents to ER via Ambulatory with complaints of Leg jr8 Swelling, Kidney Pain. 22:53 Onset: The symptoms/episode began/occurred gradually, 2 day(s) ago. Severity of jr8 symptoms: At their worst the symptoms were mild in the emergency department the symptoms are unchanged. The patient has experienced a previous episode. The patient has not recently seen a physician. 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 Since then has had mild CKD. Stated that she normally is completely fine. Before had acute failure again and was hydrated and went back to normal. Stated that for the last few days has noticed swelling in extremities and abdomen along with back pain and fatigue. Stated that last time this happened she was in acute failure again. Denies recent dietary modifications or supplementation . 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 - Social history:: Smoking status: Patient/guardian denies using tobacco. - Ebola Screening: : No symptoms or risks identified at this time. ROS: 22:53 Eyes: Negative for injury, pain, redness, and discharge, ENT: Negative for injury, jr8 pain, and discharge, Neck: Negative for injury, pain, and swelling, Cardiovascular: Negative for chest pain, palpitations. Positive for edema Respiratory: Negative for shortness of breath, cough, wheezing, and pleuritic chest pain, Abdomen/GI: Negative for abdominal pain, vomiting, diarrhea, and constipation. Positive for nausea Back: Negative for injury and pain, MS/Extremity: Negative for injury and deformity, Skin: Negative for injury, rash, and discoloration, Neuro: Negative for headache, weakness, numbness, tingling, and seizure. Exam: 22:53 Eyes: Pupils equal round and reactive to light, extra-ocular motions intact. Lids and jr8 lashes normal. Conjunctiva and sclera are non-icteric and not injected. Cornea within normal limits. Periorbital areas with no swelling, redness, or edema. ENT: Nares patent. No nasal discharge, no septal abnormalities noted. Tympanic membranes are normal and external auditory canals are clear. Oropharynx with no redness, swelling, or masses, exudates, or evidence of obstruction, uvula midline. Mucous membranes moist. Neck: Trachea midline, no thyromegaly or masses palpated, and no cervical lymphadenopathy. Supple, full range of motion without nuchal rigidity, or vertebral point tenderness. No Meningismus. Cardiovascular: Regular rate and rhythm with a normal S1 and S2. No gallops, murmurs, or rubs. Normal PMI, no JVD. No pulse deficits. Respiratory: Lungs have equal breath sounds bilaterally, clear to auscultation and percussion. No rales, rhonchi or wheezes noted. No increased work of breathing, no retractions or nasal flaring. Back: No spinal tenderness. No costovertebral tenderness. Full range of motion. Skin: Warm, dry with normal turgor. Normal color with no rashes, no lesions, and no evidence of cellulitis. MS/ Extremity: Pulses equal, no cyanosis. Neurovascular intact. Full, normal range of motion. Neuro: Awake and alert, GCS 15, oriented to person, place, time, and situation. Cranial nerves II-XII grossly intact. Motor strength 5/5 in all extremities. Sensory grossly intact. Cerebellar exam normal. Normal gait. 22:53 Abdomen/GI: Inspection: distension, that is mild, Bowel sounds: active, all quadrants, Palpation: abdomen is soft and non-tender, in all quadrants, mass, is not appreciated, rebound tenderness, is not appreciated, voluntary guarding, is not appreciated, involuntary guarding, is not appreciated, no appreciated organomegaly, Indicators: McBurney's point is not tender, Matthew's sign is negative, Rovsing's sign is negative, Liver: no appreciated palpable abnormalities, tenderness, is not appreciated. Vital Signs: 22:24 BP 126 / 95; Pulse 63; Resp 17; Pulse Ox 98% on R/A; Weight 63.5 kg; Height 5 ft. 10 kr2 in. (177.80 cm); 03/04 00:14 BP 124 / 90; Pulse 60; Resp 17; Pulse Ox 100% on R/A; kr2 03/03 22:24 Body Mass Index 20.09 (63.50 kg, 177.80 cm) kr2 MDM: 03/03 22:09 Patient medically screened. [facility] 03/04 00:00 Data reviewed: vital signs, nurses notes, lab test result(s), and as a result, I will jr discharge patient. Data interpreted: Pulse oximetry: on room air is 98 %. Interpretation: normal. Counseling: I had a detailed discussion with the patient and/or guardian regarding: the historical points, exam findings, and any diagnostic results supporting the discharge/admit diagnosis, lab results, the need for outpatient follow up, a family practitioner. ED course: Discussed with patient that there are no acute renal or other findings noted on labs. Needs to f/u with PCP. If new symptoms evolve or she becomes worse to come back for further evaluation . 03/03 22:35 Order name: Urine Microscopic Only; Complete Time: 23:30 [facility] 03/03 22:36 Order name: Urine Dipstick--Ancillary (enter results); Complete Time: 23:07 [facility] 03/03 22:36 Order name: Urine --Ancillary (enter results); Complete Time: 23:07 [facility] 03/03 22:49 Order name: CBC with Diff [facility] 03/03 22:49 Order name: Basic Metabolic Panel; Complete Time: 23:30 [facility] 03/03 22:49 Order name: Magnesium; Complete Time: 23:30 [facility] 03/03 22:49 Order name: Phosphorus; Complete Time: 23:30 [facility] 03/03 22:49 Order name: IV; Complete Time: 23:01 [facility] 03/03 22:50 Order name: CBC with Automated Diff; Complete Time: 00:00 EDMS Administered Medications: No medications were administered Disposition: :31 Co-signature as Attending Physician, Fazal Garcia MD I agree with the assessment and wa plan of care. Disposition: 03/04/18 00:02 Discharged to Home. Impression: Myalgia. - Condition is Stable. - Discharge Instructions: Musculoskeletal Pain, Chronic Kidney Disease, Adult. - Medication Reconciliation Form, Thank You Letter, Antibiotic Education, Prescription Opioid Use form. - Follow up: Private Physician; When: 2 - 3 days; Reason: Recheck today's complaints, Continuance of care, Re-evaluation by your physician. - Problem is new. - Symptoms have improved. Signatures: Dispatcher [employer] EDMS Jeffrey Gregory PA PA jr8 Fazal Garcia MD MD wa Reaves, Karey RN RN kr2 Corrections: (The following items were deleted from the chart) 00:15 00:02 03/04/2018 00:02 Discharged to Home. Impression: Myalgia. Condition is Stable. kr2 Forms are Medication Reconciliation Form, Thank You Letter, Antibiotic Education, Prescription Opioid Use. Follow up: Private Physician; When: 2 - 3 days; Reason: Recheck today's complaints, Continuance of care, Re-evaluation by your physician. Problem is new. Symptoms have improved. jr8
[2018-03-04 00:50] VITALS: BP 124/90; O2SAT 100
== END 2018-03-04 00:15 | disposition home or self-care (01) ==
LOC: ER 21:38
DX: M79.1 Myalgia (principal)
CPT/HCPCS: 36415; 80048; 81003; 81015; 81025; 83735; 84100; 85025; 99284

== ENCOUNTER 2018-10-15 12:26 | Emergency (ER) | payer SELFPAY ==
--- OUTSIDE RECORDS SUMMARY | 2018-10-15 12:32 | XMS REPORT | Continuity of Care Document ---
:1980 Author Organization Interface Problems Problem Status Onset Classification Date Comments Source Date Reported CAUDA EQUINA Active 11/28/19 [facility] SYNDROME 16 [facility] CHIARI Active 09/01/19 [facility] MALFORMATION 16 Medical Center INCISIONAL Active 03/07/20 [facility] PAIN,PURULENT 13 Medical DISCHARGE FROM Center INFECTED SURGERY Active 03/07/20 [facility] INCISION 13 [facility] Center KIARI Active 02/06/20 [facility] MALFORMATIONOK [address] [facility] [id number] CHAIRI Active 01/28/[address] Chiari Resolved Problem 03/12/2013 [facility] Murmur Active Problem 03/12/2013 [facility] Neck pain Resolved Problem 03/12/2013 [facility] Pain Active Problem 03/12/2013 [facility] PUD - Peptic Active Problem 03/12/2013 [facility] ulcer disease [facility] Chiari Resolved Problem 12/02/2015 [facility] Murmur<sup>1</rucker Active Problem 12/02/2015 patient [facility] p> states she Medical had heart Center murmur-orwan enital Neck Resolved Problem 12/02/2015 patient [facility] pain<sup>2</sup> states her Medical neck pain Center is due to chiari malformatio n. Pain Active Problem 12/02/2015 [facility] COMPRESSION OF Active [facility] BRAIN [facility] OTHER GENERAL Active [facility] Medications Medication Details Route Status Patient Ordering Order Source Instructions Provider Date Saline Flush 10 ml, Route: Inactive 11/28[facility] 0.9% MISC, Drug 2015 Medical Form: INJ, [place] Dosing Weight 63.636, kg, Q12H, Start date: 11/29/15 9:00:00 CDT, Duration: 30 day, Stop date: 12/28/15 21:00:00 CDTNotes: (Same as: BD Posiflush) sennosides, RESIDENTIAL 8.6 mg, 1 tab, Inactive 11/28/ [facility] Route: PO, 2016 Medical Drug Form: Center TAB, Dosing Weight 63.636, kg, Q12H, Start date: 11/29/15 9:00:00 CDT, Duration: 30 day, Stop date: 12/28/15 21:00:00 CDTNotes: (Same as: Senokot) Docusate 100 mg, 1 cap, Inactive 11/28[facility] Route: PO, 2015 Medical Drug form: [place] CAP, Q12H, Dosing Weight 63.636, kg, Start date: 11/29/15 9:00:00 CDT, Duration: 30 day, Stop date: 12/28/15 21:00:00 CDTNotes: (Same as: Colace) (Do Not Crush) Ketorolac 10 mg=1 tab, Active [facility] Tromethamine 10 PO, Q6H, PRN 2016 Medical MG Oral Tablet Pain, X 5 day, Center # 20 tab, 0 Refill(s) Acetaminophen 1 tab, PO, Inactive 11/28[facility] 300 MG / Codeine Q4H, PRN Pain, 2016 Medical Phosphate 30 MG X 7 day, # 42 Center Oral Tablet tab, 0 [Tylenol with Refill(s) Codeine #3] docusate sodium 100 mg=1 cap, Inactive 11/28[facility] 100 mg oral PO, Q12H, # 10 2016 Medical capsule cap, 0 Center Refill(s) cyclobenzaprine 10 mg=1 tab, Inactive 11/28[facility] [place] 10 mg oral PO, TID, PRN 2016 Medical tablet Spasm, # 30 Center tab, 0 Refill(s) Morphine 2 mg, 1 mL, Inactive 11/28[facility] Route: IVP, 2016 Medical Drug form: [place] INJ, Q4H, Dosing Weight 63.636, kg, PRN Pain Score 7-10, Start date: 11/29/15 1:16:00 CDT, Duration: 30 day, Stop date: 12/29/15 1:15:00 CDTNotes: (Same as:MORPhine Sulfate) Flexeril 10 mg, 1 tab, Inactive 11/28[facility] Route: PO, 2016 Medical Drug form: [place] TAB, TID, Dosing Weight 63.636, kg, PRN [...] Cait Route: IV, 2015 Medical Drug form: [place] INJ, Q4H, Dosing Weight 63.636, kg, PRN [...] Posiflush) Regular Insulin, 3 unit, 0.03 Inactive [facility] Human 100 UNT/ML mL, Route: 2016 [...] Syringe Route: IVP, 2015 Medical Drug Form: [place] INJ, Dosing Weight 63.636, kg, PRN, PRN Abnormal Lab Result, Start date: 11/29/15 1:12:00 CDT, Duration: 30 day, Stop date: 12/29/15 1:11:00 CDT Sodium Chloride 1,000 mL, Inactive Cait 0.154 MEQ/ML Rate: 75 2015 Medical Injectable ml/hr, Infuse [place] Solution over: 13.3 hr, Route: IVPB, Dosing Weight 63.636 kg, Total Volume: 1,000, Start date: 11/29/15 1:12:00 CDT, Duration: 30 day, Stop date: 12/29/15 1:11:00 CDT Ondansetron 4 mg, 2 mL, Inactive Cait Route: IVP2015 Medical Drug form: [place] INJ, Q8H, Dosing Weight 63.636, kg, PRN Nausea & Vomiting, Start date: 11/29/15 1:12:00 CDT, Duration: 30 day, Stop date: 12/29/15 1:11:00 CDTNotes: (Same as: Zofran) MEDICATION WASTE Product Size: 4 mg Product Wasted: ___ mg Bisacodyl 10 mg, 1 supp, Inactive Cait Route: KS, 2016 Medical Drug form: [place] SUPP, Daily, Dosing Weight 63.636, kg, PRN [...] not exceed 4gm/day of acetaminophen. (Same as: [place] 325/10) Morphine 2 mg, Route: Inactive [facility] IVP, Q1H, 2015 Medical Dosing Weight Center 63.636, kg, PRN Pain Score 7-10, Start date: 11/29/15 1:12:00 CDT, Duration: 30 day, Stop date: 12/29/15 1:11:00 CDT Acetaminophen 1 tab, PO, Active [facility] 325 MG / BID, 0 2015 [facility] Hydrocodone Refill(s) [place] Bitartrate 10 MG Oral Tablet [[place] 10/325] pregabalin 200 200 mg=1 cap, Active [facility] mg oral capsule PO, TID, # 30 2015 Medical cap, 1 Center Refill(s) Keflex 500 mg 500 mg, 1 cap, PO Active Broderick [facility] oral capsule PO, QID, 56 2012 Medical cap, Center Substitution Allowed, CAP Keflex 500 mg 500 mg, 1 cap, PO Active Esquenayari [facility] oral capsule PO, QID, 28 Lay 2012 Medical cap, Center Substitution Allowed, CAP acetaminophen-hy 1 tab, PO, PO Active Esquenayari [facility] drocodone 325 Q4H, PRN, 50 Lay 2012 Medical mg-10 mg oral tab, Pain Center tablet Score 4-6, Substitution Allowed, Maintenance, TAB Remove - 1 patch, TOP No Longer Johnson [facility] lidocaine Route: TOP, Active 2012 Medical topical patch Daily, Drug Center form: ERFILM, Start date: 03/10/13 5:00:00, Duration: 30 day, Stop date: 04/08/13 5:00:00 Celebrex 200 mg, 2 cap, PO No Longer Alex [facility] Route: PO, Active 2012 Medical Drug form: [place] CAP, Q12H, Dosing Weight 56, kg, Start date: 03/10/13 4:00:00, Duration: 30 day, Stop date: 04/08/13 16:00:00 Lyrica 100 mg, 1 cap, PO No Longer Alex [facility] Route: PO, Active 2012 Medical Drug form: [place] CAP, Q8H, Dosing Weight 56, kg, Start date: 03/10/13 0:00:00, Duration: 30 day, Stop date: 04/08/13 16:00:00 tramadol 100 mg, 2 tab, PO No Longer Alex [facility] Route: PO, Active 2012 Medical Drug form: Center TAB, Q6H, Dosing Weight 56, kg, Start date: 03/09/13 18:00:00, Duration: 30 day, Stop date: 04/08/13 12:00:00 ibuprofen 400 mg 800 mg, 2 tab, PO No Longer Hernandez [facility] oral tablet Route: PO, Active 2012 Medical Drug form: Center TAB, Q6H, Dosing Weight 56, kg, PRN Pain, Start date: 03/09/13 17:32:00, Duration: 30 day, Stop date: 04/08/13 17:31:00 Lidoderm 5% 1 patch, TOP No Longer Alex [facility] topical film Route: TOP, Active 2012 Medical (patch) Daily, Drug Center form: FILM, on 12 hrs and off 12 hrs, Start date: 03/09/13 17:00:00, Duration: 30 day, Stop date: 04/07/13 17:00:00, Remove after 12 hoursRemove after 12 hours Celebrex 200 mg, Route: PO No Longer Johnson [facility] PO, Drug form: Active 2012 Medical CAP, BID, Center Dosing Weight 56, kg, Start date: 03/09/13 17:00:00, Duration: 30 day, Stop date: 04/08/13 9:00:00 HYDROmorphone 15 mg, 30 mL, IV No Longer Meiner [facility] 0.5mg/mL PEDIATRIC OCCUPATIONAL THERAPIST Route: IV, PEDIATRIC OCCUPATIONAL THERAPIST Active 2012 Medical (15mg/30 mL) 15 Dose: 0.2 mg, Center mg PEDIATRIC OCCUPATIONAL THERAPIST Lockout: 8 minutes, 4 Hour Limit (In MG): 6, Drug Form: INJ, Continuous, STAT, Start date: 03/09/13 16:20:00, Duration: 30 day, Stop date: 04/08/13 16:19:00 [place] 10/325 1 tab, Route: PO No Longer Johnson [facility] oral tablet PO, Drug Form: Active 2012 Medical TAB, Dosing Center Weight 56, kg, Q4H, Start date: 03/09/13 16:00:00, Duration: 30 day, Stop date: 04/08/13 12:00:00 Robaxin 1,000 mg, 2 PO No Longer Johnson 03/09[facility] tab, Route: Active 2012 Medical PO, Drug form: [place] TAB, Q8H, Dosing Weight 56, kg, Start date: 03/09/13 16:00:00, Duration: 30 day, Stop date: 04/08/13 8:00:00 Dilaudid 2 mg, 1 mL, IV No Longer Hernandez 03/09[facility] Route: IV, Active 2012 Medical Drug form: [place] INJ, Q2H, Dosing Weight 56, kg, PRN Pain, Start date: 03/09/13 15:47:00, Stop date: 03/09/13 21:00:00 Celebrex 400 mg, 4 cap, PO No Longer Johnson 03/09[facility] Route: PO, Active 2012 Medical Drug form: [place] CAP, ONCE, Dosing Weight 56, kg, Start date: 03/09/13 15:20:00, Stop date: 03/09/13 15:20:00 Lyrica 300 mg, 3 cap, PO No Longer Johnson 03/09[facility] Route: PO, Active 2012 Medical Drug form: [place] CAP, ONCE, Dosing Weight 56, kg, Start date: 03/09/13 15:19:00, Stop date: 03/09/13 15:19:00 ondansetron 4 mg, 2 mL, IVP No Longer [place] 03/09[facility] Route: IVP, Active 2012 Medical Drug form: [place] INJ, ONCE, Dosing Weight 56, kg, PRN Nausea & Vomiting, Start date: 03/09/13 12:05:00 flumazenil 0.2 mg, 2 mL, IVP No Longer [place] 03/09[facility] Route: IVP, Active 2012 Medical Drug form: [place] INJ, PRN, Dosing Weight 56, kg, PRN Benzodiazepine Reversal, Initial dose, Start date: 03/09/13 12:05:00, Duration: 30 day, Stop date: 04/08/13 12:04:00 naloxone 0.04 mg, 0.1 IVP No Longer [place] 03/09[facility] mL, Route: Active 2012 Medical IVP, Drug [...] Route: PO, Active 2012 Medical Drug form: [place] TAB, Q6H, Dosing Weight 56, kg, PRN as needed for nausea/vomitin g, Start date: 03/09/13 11:43:00, Duration: 30 day, Stop date: 04/08/13 11:42:00 Zofran 4 mg, 1 tab, [facility] Route: PO, 2012 Medical Drug form: [place] TAB, ONCE, Dosing Weight 56, kg, Start date: 03/09/13 11:43:00, Stop date: 03/09/13 11:43:00 Saline Flush 5 ml, Route: IVP No Longer Esquenazi Cait 0.9% IVP, Drug Active [place] 2012 Medical Form: INJ, [place] Dosing Weight 56.818, kg, Q12H, Start date: 03/07/13 21:00:00, Duration: 30 day, Stop date: 04/06/13 9:00:00 morphine Sulfate 1 mg, 0.5 mL, IV No Longer Alex 03/08[facility] Cait Route: IV, Active 2012 Medical Drug form: Center INJ, Q2H, Dosing Weight 56, kg, PRN as needed for pain, Start date: 03/07/13 20:48:00, Duration: 30 day, Stop date: 04/06/13 20:47:00 vancomycin + 1.25 gm, IV No Longer Cheli Cait Sodium Chloride Route: IV, Active 2012 Medical 0.9% IV 250 mL [id number], Center Dosing Weight 56.818, kg, Start date: 03/07/13 20:00:00, Stop date: 04/06/13 8:00:00 cefepime 1 gm, Route: IVPB No Longer Floyd [facility] IVPB, Drug Active 2012 Medical form: INJ, Center ABXQ8H, Dosing Weight 56.818, kg, (CrCl >/=50 ml/min), Start date: 03/07/13 19:00:00, Duration: 30 day, Stop date: 04/06/13 11:00:00 Keflex 500 mg, 1 cap, PO No Longer Floyd [facility] Route: PO, Active 2012 Medical Drug form: Center CAP, Q6H, Dosing Weight 56.818, kg, Start date: 03/07/13 18:00:00, Duration: 30 day, Stop date: 04/06/13 12:00:00 Saline Flush 5 ml, Route: IVP No Longer Esquenazi [facility] 0.9% IVP, Drug Active [place] 2012 Medical Form: INJ, Center Dosing Weight 56.818, kg, PRN, PRN Line Flush, Start date: 03/07/13 17:42:00, Duration: 30 day, Stop date: 04/06/13 17:41:00 Sodium Chloride 1,000 mL, IV No Longer Esquenazi [facility] 0.9% IV 1,000 mL Rate: 50 [...] Omnipaque 98 mL, Route: IVP No Longer [facility] 350mg/ml IVP, Drug Active 2012 Medical Form: [facility] Dosing Weight 56.818, kg, ONCALL, STAT, Start date: 03/07/13 17:10:00, Duration: 1 doses or times, Weight=95 - 109kg -- "To be infused by Radiology Staff ONLY"Weig ht=95 - 109kg -- "To be infused by Radiology Staff ONLY" Zofran 4 mg, 2 mL, IVP No Longer [facility] Route: IVP, Active 2012 Medical Drug form: [place] INJ, ONCE, Dosing Weight 56.818, kg, Priority: STAT, Start date: 03/07/13 16:14:00, Stop date: 03/07/13 16:14:00 morphine Sulfate 4 mg, 1 mL, IVP No Longer [facility] Route: IVP, Active 2012 Medical Drug form: [place] INJ, ONCE, Dosing Weight 56.818, kg, Priority: STAT, Start date: 03/07/13 16:13:00, Stop date: 03/07/13 16:13:00 Pepcid 20 mg 20 mg, 1 tab, PO No Longer Iluonakhamhe [facility] oral tablet Route: PO, Active 2012 Medical Drug form: [place] TAB, Daily, Dosing Weight 63.009, kg, Start date: 02/18/13 9:00:00, Duration: 30 day, Stop date: 03/19/13 9:00:00 Zofran 4 mg oral 4 mg, 1 tab, PO Active Es[place] tablet PO, ONCE, 10 Lay 2012 Medical tab, Center Substitution Allowed, TAB dexamethasone 1 See Active Esquenazi [facility] mg oral tablet Instructions, Lay 2012 Medical with food, 36 Center tab, Substitution Allowedwith food Pepcid 20 mg 20 mg, 1 tab, PO Active Esquenazi [facility] oral tablet PO, Daily, 50 Lay 2012 Medical tab, Center Substitution Allowed, TAB docusate sodium 100 mg, 1 cap, PO Active [place] 100 mg oral PO, Q12H, 50 Lay 2012 Medical capsule cap, Center Substitution Allowed, CAP acetaminophen-hy 1 tab, PO, PO Active [place] drocodone 325 Q4H, PRN, 50 Lay 2012 Medical mg-10 mg oral tab, Pain Center tablet Score 4-6, Substitution Allowed, Maintenance, TAB Phenergan 12.5 mg, 0.5 IVPB No Longer [place] mL, Route: Active 2012 Medical IVPB, Drug Center form: INJ, Q4H, Dosing Weight 63.009, kg, PRN Nausea & Vomiting, Start date: 02/17/13 18:19:00, Duration: 30 day, Stop date: 03/19/13 18:18:00 magnesium 2 gm, 50 mL, IVPB No Longer Claudette [facility] sulfate Route: IVPB, Active 2012 Medical Drug form: [place] INJ, ONCE, Start date: 02/17/13 4:32:00, Stop date: 02/17/13 4:32:00 cefazolin 1 gm, Route: IVPB No Longer Keith [facility] IVPB, Drug Active 2012 Medical form: PDR/INJ, [place] ABXQ8H, Start date: 02/16/13 22:30:00, Duration: 1 doses or times, Stop date: 02/16/13 22:30:00 Dilaudid 0.5 mg, 0.25 IVP No Longer Shagagi [facility] mL, Route: Active 2012 Medical IVP, Drug Center form: INJ, ONCE, Dosing Weight 61.364, kg, Priority: STAT, Start date: 02/16/13 22:20:00, Stop date: 02/16/13 22:20:00 FENTanyl patch 1 patch, TOP No Longer Shagagi [facility] 75 mcg/hr Route: TOP, Active 2012 Medical Drug Form: [place] ERFILM, Dosing Weight 61.364, kg, Q72H, STAT, Start date: 02/16/13 21:11:00, Duration: 30 day, Stop date: 03/15/13 21:11:00 Saline Flush 5 ml, Route: IVP No Longer Keith [facility] 0.9% IVP, Drug Active 2012 Medical Form: INJ, Center Dosing Weight 61.364, kg, Q12H, Start date: 02/16/13 21:00:00, Duration: 30 day, Stop date: 03/18/13 9:00:00 docusate 100 mg, 1 cap, PO No Longer Keith [facility] Route: PO, Active 2012 Medical Drug form: Center CAP, Q12H, Dosing Weight 61.364, kg, Start date: 02/16/13 21:00:00, Duration: 30 day, Stop date: 03/18/13 9:00:00 senna 8.6 mg, 1 tab, PO No Longer Keith [facility] Route: PO, Active 2012 Medical Drug Form: Center TAB, Dosing Weight 61.364, kg, Q12H, Start date: 02/16/13 21:00:00, Duration: 30 day, Stop date: 03/18/13 9:00:00 famotidine 20 mg, 2 mL, IVP No Longer Iluonakhamhe [facility] Route: IVP, Active 2012 Medical Drug form: Center INJ, Q12H, Dosing Weight 61.364, kg, Start date: 02/16/13 21:00:00, Duration: 30 day, Stop date: 03/18/13 9:00:00 Dilaudid 0.5 mg, Route: IV No Longer Narciso [facility] IV, ONCE, Active 2012 Medical Dosing Weight Center 61.364, kg, PRN Pain, Start date: 02/16/13 20:04:00 diphenhydrAMINE 12.5 mg, 0.25 IVP No Longer [facility] 02/16[facility] mL, Route: Active 2012 Medical IVP, Drug Center form: INJ, PRN, Dosing Weight 61.364, kg, PRN Itching, Start date: 02/16/13 18:44:00, Duration: 1 day, Stop date: 02/17/13 18:43:00 flumazenil 0.2 mg, 2 mL, IVP No Longer Dais [facility] Route: IVP, Active 2012 Medical Drug form: Center INJ, PRN, Dosing Weight 61.364, kg, PRN Benzodiazepine Reversal, Initial dose, Start date: 02/16/13 18:44:00, Duration: 1 day, Stop date: 02/17/13 18:43:00 naloxone 0.04 mg, 0.1 IVP No Longer Dais [facility] mL, Route: Active 2012 Medical IVP, Drug Center form: INJ, Q2MIN, Dosing Weight 61.364, kg, PRN Narcotic Reversal, Start date: 02/16/13 18:44:00, Duration: 8 doses or times, Stop date: 02/17/13 0:00:00 morphine Sulfate 2 mg, 1 mL, IVP No Longer Dais [facility] Route: IVP, Active 2012 Medical Drug form: Center INJ, Q5Min, Dosing Weight 61.364, kg, PRN Pain Score 4-6, Start date: 02/16/13 18:44:00, Duration: 5 doses or times, Stop date: 02/17/13 0:00:00 ondansetron 4 mg, 2 mL, IVP No Longer [facility] Route: IVP, Active 2012 Medical Drug form: Center INJ, ONCE, Dosing Weight 61.364, kg, PRN Nausea & Vomiting, Start date: 02/16/13 18:44:00 promethazine 6.25 mg, 0.25 IVPB No Longer Dais [place] mL, Route: Active 2012 Medical IVPB, Drug Center form: INJ, ONCE, Dosing Weight 61.364, kg, PRN Nausea & Vomiting, Start date: 02/16/13 18:44:00 dexamethasone 4 mg, 1 tab, PO No Longer Keith [facility] Route: PO, Active 2012 Medical Drug form: Center TAB, Q6H, Dosing Weight 61.364, kg, Start date: 02/16/13 18:00:00, Duration: 30 day, Stop date: 03/18/13 12:00:00 cefazolin (SCIP) 1 gm, Route: IVPB No Longer Keith [facility] IVPB, Drug Active 2012 Medical form: INJ, Center Q8H, Dosing Weight 61.364, kg, Start date: 02/16/13 16:00:00, Duration: 1 doses or times, Stop date: 02/16/13 16:00:00 Dextrose 50% 12.5 gm, 25 IVP No Longer Keith [facility] Syringe mL, Route: Active 2012 Medical IVP, Drug Center Form: INJ, Dosing Weight 61.364, kg, PRN, PRN Abnormal Lab Result, Start date: 02/16/13 13:35:00, Duration: 30 day, Stop date: 03/18/13 13:34:00 insulin regular 3 unit, 0.03 SUB-Q No Longer Keith [facility] 100 units/mL mL, Route: Active 2012 [facility] human SUB-Q, Drug Center recombinant form: SOLN, PRN, Dosing Weight 61.364, kg, PRN Abnormal Lab Result, Start date: 02/16/13 13:35:00, Duration: 30 day, Stop date: 03/18/13 13:34:00 Saline Flush 5 ml, Route: IVP No Longer Keith [facility] 0.9% IVP, Drug Active 2012 Medical Form: INJ, Center Dosing Weight 61.364, kg, PRN, PRN Line Flush, Start date: 02/16/13 13:35:00, Duration: 30 day, Stop date: 03/18/13 13:34:00 morphine Sulfate 1 mg, 0.5 mL, IVP No Longer Keith [facility] Route: IVP, Active 2012 Medical Drug form: Center INJ, Q1H, Dosing Weight 61.364, kg, PRN Pain Score 7-10, Start date: 02/16/13 13:35:00, Duration: 30 day, Stop date: 03/18/13 13:34:00 acetaminophen-hy 2 tab, Route: PO No Longer Keith [facility] drocodone 325 PO, Drug Form: Active 2012 Medical mg-10 mg oral TAB, Dosing Center tablet Weight 61.364, kg, Q4H, PRN Pain Score 7-10, Start date: 02/16/13 13:35:00, Duration: 30 day, Stop date: 03/18/13 13:34:00 dexamethasone 10 mg, 2.5 mL, IVP No Longer Keith [facility] Route: IVP, Active 2012 Medical Drug form: Center INJ, ONCE, Dosing Weight 61.364, kg, Start date: 02/16/13 13:35:00, Stop date: 02/16/13 13:35:00 bisacodyl 10 mg, 1 supp, [place] [facility] Route: KS, Active 2012 Medical Drug form: [place] SUPP, Daily, Dosing Weight 61.364, kg, PRN Constipation, Start date: 02/16/13 13:35:00, Duration: 30 day, Stop date: 03/18/13 13:34:00 Sodium Chloride 1,000 mL, [facility] IV 1,000 mL Rate: 50 [...] Route: PO, Active 2012 Medical Drug form: [place] TAB, PRE OP, Dosing Weight 61.364, kg, Start date: 02/16/13 11:00:00, Duration: 1 doses or times, Stop date: 02/17/13 0:00:00 cefazolin 2 gm, 50 mL, IVPB No Longer Claudette Cait Route: IVPB, Active 2012 Medical Drug form: [place] INJ, PRE OP, Start date: 02/16/13 3:00:00, Duration: 1 day, Stop date: 02/17/13 2:59:00 Allergies, Adverse Reactions, Alerts Substance Category Reaction Severity Reaction Status Date Comments Source type Reported Esoterica propensity Adverse Active [facility] with to adverse Reaction Medical Sunscreen reactions to [place] substance Immunizations Immunization Date Given Site Status Last Updated Comments Source Results Order Name Results Value Reference Date Interpretation Comments Source Range URINE AND UA Leuk Est Moderate Negative 11/28 [facility] *ABN* [place] (11/29/15 3:49 AM) URINE AND UA WBC 54 /HPF 0 - 5 11/28 [facility] URINE AND UA Bacteria Occasional None Seen 11/28 [facility] /HPF /HPF /2015 [facility] URINE AND UA <=1.0 0.1 - 1.0 11/28 [facility] Urobilinogen mg/dL [facility] URINE AND UA Mucus Moderate None Seen 11/28 [facility] /LPF /LPF [facility] URINE AND UA Sq Epi None Seen 11/28 [facility] URINE AND UA Color Yellow Yellow 11/28 [facility] *NA* [place] (11/29/15 3:49 AM) URINE AND UA Turbidity Clear Clear 11/28 [facility] (11/29/15 3:49 AM) [place] URINE AND UA Spec Grav 1.019 <=1.030 11/28 [facility] URINE AND UA Protein 20 mg/dL Negative 11/28 [facility] mg/dL [facility] URINE AND UA pH 6.0 5.0 - 8.0 11/28 [facility]2015 [facility] URINE AND UA Glucose Negative Negative 11/28 [facility] mg/dL mg/dL [facility] URINE AND UA Ketones Negative Negative 11/28 [facility] mg/dL mg/dL [facility] URINE AND UA Bili Negative Negative 11/28 [facility] *NA* [place] (11/29/15 3:49 AM) URINE AND UA Blood Trace Negative 11/28 [facility] *ABN* [place] (11/29/15 3:49 AM) URINE AND UA Nitrite Negative Negative 11/28 [facility] (11/29/15 3:49 AM) [place] URINE AND UA RBC 3 /HPF 0 - 2 11/28 [facility] BLOOD BANK Antibody Scrn Negative 11/28 [facility] (11/29/15 1:53 AM) [place] BLOOD BANK ABO/Rh O POS 11/28 [facility] ELECTROLYTE AGAP 10.8 meq/L 10.0 - 11/28 [facility] S 20.0 [facility] ELECTROLYTE eGFR 122 11/28 Result Comment: The eGFR is calculated using the CKD-EPI formula. In most young, healthy individuals the eGFR will be > 90 mL/min/1.73m2. The eGFR declines with age. An eGFR of 60-89 may be normal in [facility] mL/min/1.7 some populations, particularly the elderly, for whom the CKD-EPI formula has not been extensively validated. Use of the eGFR is not recommended in the following populations: [address] Individuals with unstable creatinine concentrations, including [...] Lvl 111 meq/L 95 - 109 11/28 [facility] ELECTROLYTE CO2 24 meq/L 24 - 32 11/28 [facility] ELECTROLYTE Calcium Lvl 9.1 mg/dL 8.5 - 10.5 11/28 [facility] ELECTROLYTE Glucose Lvl 110 mg/dL 70 - 99 11/28 [facility] ELECTROLYTE Sodium Lvl 142 meq/L 135 - 145 11/28 [facility] ELECTROLYTE Creatinine 0.55 mg/dL 0.50 - 11/28 [facility] Lvl 1.40 [facility] ELECTROLYTE BUN 14 mg/dL 7 - 22 11/28 [facility] ELECTROLYTE Potassium Lvl 3.8 meq/L 3.5 - 5.1 11/28 [facility] HEMATOLOGY INR 1.02 0.85 - 11/28 [facility] 1.17 [facility] HEMATOLOGY PTT 29.1 s 22.9 - 11/28 [place] 35.8 /2015 [facility] HEMATOLOGY PT 13.7 s 12.0 - 11/28 [facility] 14.7 [facility] HEMATOLOGY RDW 13.2 % 11.5 - 11/28 14.5 /2015 [facility] HEMATOLOGY MCH 31.7 pg 27.0 - 11/28 31.0 [facility] HEMATOLOGY Hct 37.6 % 36.0 - 11/28 48.0 [facility] HEMATOLOGY MCV 94.4 fL 80.0 - 11/28 98.0 [facility] HEMATOLOGY Hgb 12.6 g/dL 12.0 - 11/28 16.0 [facility] HEMATOLOGY MCHC 33.5 g/dL 32.0 - 11/28 36.0 [facility] HEMATOLOGY Platelet 212 K/CMM 133 - 450 11/28 [facility] HEMATOLOGY MPV 10.8 fL 7.4 - 10.4 11/28 [facility] HEMATOLOGY WBC 9.1 K/CMM 3.7 - 10.4 11/28 [facility] HEMATOLOGY RBC 3.98 M/CMM 4.20 - 11/28 5.40 [facility] HEMATOLOGY Basophils # 0.1 K/CMM 0.0 - 0.2 11/28 [facility] HEMATOLOGY Monocytes # 0.7 K/CMM 0.0 - 0.8 11/28 [facility] HEMATOLOGY Lymphocytes 15.5 % 20.0 - 11/28 40.0 [facility] HEMATOLOGY Lymphocytes # 1.4 K/CMM 1.0 - 5.5 11/28 [facility] HEMATOLOGY Segs-Bands # 7.0 K/CMM 1.5 - 8.1 11/28 [facility] HEMATOLOGY Eosinophils 0.1 % 0.0 - 4.0 11/28 [facility] HEMATOLOGY Basophils 0.6 % 0.0 - 1.0 11/28 [facility] HEMATOLOGY Monocytes 7.2 % 2.0 - 12.0 11/28 [facility] HEMATOLOGY Segs 76.6 % 45.0 - 11/28 [facility] 75.0 [facility] Spine Spine lumbar EXAM: MRI LUMBAR SPINE WITHOUT CONTRAST 11/28 - [facility] lumbar wo wo contrast /2015 - [facility] contrast MRI This report was dictated by a Forestry Pilot/ Fellow. I have personally reviewed the images [...] CT LUMBAR SPINE WITHOUT CONTRAST 11/28 - [facility] [place] [facility] contrast /2015 - [facility] contrast CT CT Center DATE: 11/29/2015 [...] eGFR of 60-89 may be normal in [facility] mL/min/1. some populations, particularly the elderly, for whom the CKD-EPI formula has not been extensively validated. Use of the eGFR is not recommended in the following populations: [place] [address] Center Individuals with unstable creatinine concentrations, including [...] 106 meq/L 95 - 109 03/10 Normal [facility] CHEMISTRY Calcium Lvl 8.8 mg/dL 8.5 - 10.5 03/10 Normal [facility] CHEMISTRY CO2 29 meq/L 24 - 32 03/10 Normal [facility] CHEMISTRY AGAP 10.2 meq/L 10.0 - 08 Normal [facility] 20.0 [facility] CHEMISTRY BUN 7 mg/dL 7 - 22 03/10 Normal [facility] CHEMISTRY Creatinine 0.6 mg/dL 0.5 - 1.4 03/10 Normal [facility] Lvl Medical Center CHEMISTRY Sodium Lvl 141 meq/L 135 - 145 03/10 Normal [facility] Center CHEMISTRY Potassium Lvl 4.2 meq/L 3.5 - 5.1 03/10 Normal Medical Center CHEMISTRY Glucose Lvl 107 mg/dL 70 - 99 03/10 HI 3Interpretive Data: Adult reference range values reflect the clinical guidelines of the [place] [employer]. Medical Center Microbiolog Culture: AFB 03/09 [facility] y w/Smear Medical Center Microbiolog Culture: 03/09 [facility] y Wound/Abscess Medical w/Gram Stain Center Microbiolog Culture: 03/09 [facility] y Anaerobic Medical Center Microbiolog Culture: 03/09 [facility] y Fungal [facility] w/Smear Center CHEMISTRY U Preg Negative Negative 03/09 Normal Medical (03/09/2013 08:40:35) Center BLOOD BANK ABO/Rh O POS 03/09 Unknown RESULTS [facility] Center BLOOD BANK Antibody Scrn Negative 03/09 Normal [facility] Medical (03/09/2013 08:40:00) Center CHEMISTRY Vanco Tr 6.0 ug/ml 03/09 NA 5Interpretive Data: Therapeutic Range: Trough: 10 - 20 ug/mL Medical Peak: 20 - 40 ug/mL Free Soil Potential Toxicity: >80 ug/mL CHEMISTRY Vanco Tr TND 0845 03/09 NA [facility] Center Microbiolog Culture: 03/09 [facility] y Wound/Abscess Medical w/Gram Stain Center HEMATOLOGY INR 0.97 0.85 - 03/08 Normal 6Interpretive Data: RECOMMENDED RANGES FOR PROTIME INR: [facility] 1. 2.0-3.0 for most medical and surgical thromboembolic states. Medical 2.5-3.5 for artificial heart valves and recurrent embolism. Center INR SHOULD BE USED ONLY FOR PATIENTS ON STABLE ANTICOAGULANT THERAPY. HEMATOLOGY PT 13.1 s 12.0 - 03/08 Normal [facility] 14.7 Medical Center HEMATOLOGY PTT 32.0 s 22.9 - 03/08 Normal 7Interpretive [facility] 35.8 Data: Heparin Medical Therapeutic Center Range: 57 - 92 Seconds IMMUNOLOGY [facility]-HIV 1/2 Negative Negative 03/07 NA [facility] Medical *NA* Center (03/07/2013 15:54:24) CHEMISTRY eGFR 97 03/07 2Result Comment: The eGFR is calculated using the CKD-EPI formula. In most young, healthy individuals the eGFR will be > 90 mL/min/1.73m2. The eGFR declines with age. An eGFR of 60-89 may be normal in [facility] mL/min/1.7 some populations, particularly the elderly, for whom the CKD-EPI formula has not been extensively validated. Use of the eGFR is not recommended in the following populations: [address] Individuals with unstable creatinine concentrations, including [...] 8.7 mg/dL 8.5 - 10.5 03/07 Normal [facility] CHEMISTRY CO2 28 meq/L 24 - 32 03/07 Normal [facility] CHEMISTRY Creatinine 0.8 mg/dL 0.5 - 1.4 03/07 [facility] CHEMISTRY Glucose Lvl 112 mg/dL 70 - 99 03/07 HI 4Interpretive Data: Adult reference range values reflect the clinical guidelines of the [place] [employer]. [facility] CHEMISTRY BUN 11 mg/dL 7 - 22 03/07 Normal [facility] CHEMISTRY Sodium Lvl 138 meq/L 135 - 145 03/07 Normal [facility] CHEMISTRY Potassium Lvl 4.3 meq/L 3.5 - 5.1 03/07 Normal [facility] CHEMISTRY Chloride Lvl 102 meq/L 95 - 109 03/07 Normal [facility] CHEMISTRY AGAP 12.3 meq/L 10.0 - 03/07 Normal [facility] 20.0 [facility] HEMATOLOGY MPV 8.6 fL 7.4 - 10.4 03/07 Normal [facility] HEMATOLOGY Platelet 230 K/CMM 133 - 450 03/07 [facility] HEMATOLOGY RDW 12.5 % 11.5 - 03/07 Normal [facility] 14.5 /2012 [facility] HEMATOLOGY MCHC 33.7 g/dL 32.0 - 08/ Normal [facility] 36.0 /2012 [facility] HEMATOLOGY WBC 8.1 K/CMM 3.7 - 10.4 08/ Normal /2012 [facility] HEMATOLOGY MCH 31.3 pg 27.0 - 08 HI [place] 31.0 /2012 [facility] HEMATOLOGY MCV 92.9 fL 81.0 - 08 Normal [facility] 99.0 /2012 [facility] HEMATOLOGY Hct 32.8 % 36.0 - 08/ LOW [facility] 48.0 /2012 [facility] HEMATOLOGY Hgb 11.1 g/dL 12.0 - 08/ LOW [facility] 16.0 /2012 [facility] HEMATOLOGY RBC 3.53 M/CMM 4.20 - 08 [facility] 5.40 /2012 [facility] HEMATOLOGY Segs 68.4 % 45.0 - 08/ Normal [facility] 75.0 /2012 [facility] HEMATOLOGY Basophils 0.5 % 0.0 - 1.0 / Normal [facility] HEMATOLOGY Eosinophils 2.0 % 0.0 - 4.0 08/ Normal /2012 [facility] HEMATOLOGY Monocytes 8.8 % 2.0 - 12.0 08/ Normal [facility] HEMATOLOGY Lymphocytes 20.3 % 20.0 - 08/03 [facility] 40.0 /2012 [facility] HEMATOLOGY Basophils # 0.0 K/CMM 0.0 - 0.2 08/ Normal [facility] HEMATOLOGY Eosinophils # 0.2 K/CMM 0.0 - 0.5 / Normal [facility] HEMATOLOGY Monocytes # 0.7 K/CMM 0.0 - 0.8 08/ Normal /2012 [facility] HEMATOLOGY Lymphocytes # 1.6 K/CMM 1.0 - 5.5 08/ Normal [facility] HEMATOLOGY Segs-Bands # 5.6 K/CMM 1.5 - 8.1 03/07 Normal [facility] Spine Spine EXAMINATION: SPINE CERVICAL CT 03/07 - [facility] cervical w cervical w - Medical [...] or redness appreciated COMPARISON: Preoperative MRI from [facility] on [facility] of 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 Spine Spine 03/07 - [facility] cervical wo cervical - Medical contrast [...] or redness appreciated COMPARISON: Preoperative MRI from [facility] on of 11/13/2012 showing tonsillar ectopia of [...] EXAMINATION: CT HEAD WITHOUT CONTRAST 03/07 - [facility] contrast CT contrast CT /2012 - [facility] Center DATE: 03/07/2013 at 1651 hours [...] contrast enhanced sequence. COMPARISON: MRI brain from [facility] brain of 2012 DISCUSSION: A small fluid [...] Notify 02/18 NA Cait GLUCOSE RN/ /2012 [facility] TESTING Free Soil BEDSIDE Gluc POC 202 mg/dL 70 - 99 02/18 [place] 1Interpretive [facility] GLUCOSE Lifscn /2012 Data: [facility] TESTING [facility] Upper Reportable Limit: 200 mg/dL. CHEMISTRY Ca Norm mgdL 4.76 mg/dL 4.65 - 02/18 Normal [facility] 5. [facility] CHEMISTRY Ca Ion mgdL 4.76 mg/dL 4.65 - 02/18 Normal [facility] . [facility] CHEMISTRY Ca Norm 1.19 1.16 - 02/18 Normal [facility] mMol/L 1. [facility] CHEMISTRY Ca Ion 1.19 1.16 - 02/18 Normal [facility] mMol/L 1. [facility] CHEMISTRY Calcium Lvl 8.4 mg/dL 8.5 - 10.5 02/18 LOW [facility] CHEMISTRY CO2 26 meq/L 24 - 32 02/18 Normal [facility] CHEMISTRY Chloride Lvl 107 meq/L 95 - 109 02/18 Normal [facility] CHEMISTRY Potassium Lvl 4.5 meq/L 3.5 - 5.1 02/18 Normal [facility] CHEMISTRY Sodium Lvl 142 meq/L 135 - 145 02/18 Normal [facility] CHEMISTRY Glucose Lvl 197 mg/dL 70 - 99 02/18 HI 7Interpretive Data: Adult reference range values reflect the clinical guidelines of the [place] [employer]. [facility] CHEMISTRY Creatinine 0.7 mg/dL 0.5 - 1.4 02/18 Normal [facility] CHEMISTRY BUN 14 mg/dL 7 - 02/18 Normal [facility] CHEMISTRY eGFR 114 02/18 NA 4Result Comment: The eGFR is calculated using the CKD-EPI formula. In most young, healthy individuals the eGFR will be > 90 mL/min/1.73m2. The eGFR declines with age. An eGFR of 60-89 may be normal in [facility] mL/min/1. some populations, particularly the elderly, for whom the CKD-EPI formula has not been extensively validated. Use of the eGFR is not recommended in the following populations: [address] Individuals with unstable creatinine concentrations, including [...] AGAP 13.5 meq/L 10.0 - 02/18 Normal [facility] 20.0 [facility] CHEMISTRY Magnesium Lvl 2.1 mg/dL 1.8 - 2.4 02/18 Normal [facility] CHEMISTRY Phosphorus 2.5 mg/dL 2.5 - 4.5 02/18 Normal [facility] HEMATOLOGY Monocytes 6.5 % 2.0 - 12.0 02/18 Normal [facility] HEMATOLOGY Segs-Bands # 10.7 K/CMM 1.5 - 8.1 02/18 HI [facility] Center HEMATOLOGY Basophils 0.2 % 0.0 - 1.0 02/18 Normal [facility] HEMATOLOGY Segs 85.8 % 45.0 - 02/18 HI [place] 75.0 /2012 Medical Center HEMATOLOGY Lymphocytes 7.5 % 20.0 - 07 LOW [place] 40.0 /2012 [facility] HEMATOLOGY Monocytes # 0.8 K/CMM 0.0 - 0.8 02/18 Normal [facility] HEMATOLOGY Lymphocytes # 0.9 K/CMM 1.0 - 5.5 02/18 LOW [facility] HEMATOLOGY MCHC 32.6 g/dL 32.0 - 02/18 Normal [facility] 36.0 [facility] HEMATOLOGY RDW 13.1 % 11.5 - 02/18 Normal [facility] 14.5 /2012 [facility] Center HEMATOLOGY MPV 9.8 fL 7.4 - 10.4 02/18 Normal [facility] Center HEMATOLOGY Platelet 229 K/CMM 133 - 450 02/18 Normal [facility] Center HEMATOLOGY MCV 95.5 fL 81.0 - 02/18 Normal [facility] 99.0 /2012 [facility] Center HEMATOLOGY Hct 33.0 % 36.0 - 02/18 [facility] [place] 48.0 /2012 Medical Center HEMATOLOGY MCH 31.1 pg 27.0 - 02/18 HI [place] 31.0 Medical Center HEMATOLOGY Hgb 10.8 g/dL 12.0 - 02/18 LOW [place] 16.0 [facility] Center HEMATOLOGY RBC 3.46 M/CMM 4.20 - 02/18 [facility] 5.40 /2013 Medical Center HEMATOLOGY WBC 12.5 K/CMM 3.7 - 10.4 02/18 HI Medical Center BEDSIDE Comment1 Notify 02/17 NA [facility] GLUCOSE RN/MD /2012 Medical TESTING Center BEDSIDE Gluc POC 185 mg/dL 70 - 99 02/17 [place] 2Interpretive [facility] GLUCOSE Lifscn Data: Medical TESTING Center Upper Reportable Limit: 200 mg/dL. BEDSIDE Gluc POC 130 mg/dL 70 - 99 02/17 [place] 3Interpretive [facility] GLUCOSE Lifscn Data: [facility] Center Upper Reportable Limit: 200 mg/dL. BEDSIDE Comment1 Notify 02/17 NA [facility] GLUCOSE RN/ /2012 Medical TESTING Center CHEMISTRY Phosphorus 3.4 mg/dL 2.5 - 4.5 02/17 Normal [facility] Center CHEMISTRY Magnesium Lvl 1.9 mg/dL 1.8 - 2.4 02/17 Normal [facility] Center CHEMISTRY AGAP 16.3 meq/L 10.0 - 02/17 Normal [facility] 20.0 [facility] Center CHEMISTRY Creatinine 0.6 mg/dL 0.5 - 1.4 02/17 Normal [facility] Center CHEMISTRY BUN 9 mg/dL 7 - 22 02/17 Normal [facility] Center CHEMISTRY Glucose Lvl 112 mg/dL 70 - 99 02/17 HI 8Interpretive Data: Adult reference range values reflect the clinical guidelines of the [place] [employer]. Medical Center CHEMISTRY Chloride Lvl 110 meq/L 95 - 109 02/17 HI Medical [facility] CHEMISTRY Potassium Lvl 4.3 meq/L 3.5 - 5.1 02/17 Normal [facility]2012 [facility] CHEMISTRY Sodium Lvl 142 meq/L 135 - 145 02/17 Normal [facility] Center CHEMISTRY Calcium Lvl 8.3 mg/dL 8.5 - 10.5 02/17 LOW [facility] CHEMISTRY CO2 20 meq/L 24 - 32 02/17 LOW [facility]2012 [facility] CHEMISTRY eGFR 120 02/17 NA 5Result Comment: The eGFR is calculated using the CKD-EPI formula. In most young, healthy individuals the eGFR will be > 90 mL/min/1.73m2. The eGFR declines with age. An eGFR of 60-89 may be normal in [facility] mL/min/1.7 /2012 some populations, particularly the elderly, for whom the CKD-EPI formula has not been extensively validated. Use of the eGFR is not recommended in the following populations: [place] [address] Center Individuals with unstable creatinine concentrations, including [...] mgdL 4.76 mg/dL 4.65 - 02/17 Normal [facility] . [facility] CHEMISTRY Ca Norm 1.19 1.16 - 02/17 Normal [facility] mMol/L 09.03 [facility] CHEMISTRY Ca Ion mgdL 4.76 mg/dL 4.65 - 02/17 Normal [facility] . [facility] CHEMISTRY Ca Ion 1.19 1.16 - 02/17 Normal [facility] mMol/L 09.03 [facility] CHEMISTRY eGFR 97 02/17 NA 6Result Comment: The eGFR is calculated using the CKD-EPI formula. In most young, healthy individuals the eGFR will be > 90 mL/min/1.73m2. The eGFR declines with age. An eGFR of 60-89 may be normal in [facility] mL/min/1. some populations, particularly the elderly, for whom the CKD-EPI formula has not been extensively validated. Use of the eGFR is not recommended in the following populations: [address] Individuals with unstable creatinine concentrations, including [...] 3.9 meq/L 3.5 - 5.1 02/17 Normal [facility] CHEMISTRY Chloride Lvl 114 meq/L 95 - 109 02/17 HI [facility] CHEMISTRY Sodium Lvl 145 meq/L 135 - 145 02/17 Normal [facility] CHEMISTRY Creatinine 0.8 mg/dL 0.5 - 1.4 02/17 Normal [facility] /2012 [facility] CHEMISTRY BUN 9 mg/dL 7 - 22 02/17 Normal [facility] CHEMISTRY Calcium Lvl 8.0 mg/dL 8.5 - 10.5 02/17 LOW [facility] CHEMISTRY CO2 23 meq/L 24 - 32 02/17 LOW [facility] CHEMISTRY Glucose Lvl 108 mg/dL 70 - 99 02/17 HI 9Interpretive Data: Adult reference range values reflect the clinical guidelines MH of the [place] [employer]. Medical Center CHEMISTRY AGAP 11.9 meq/L 10.0 - 07 Normal [place] 20.0 /2012 [facility] HEMATOLOGY Segs 89.9 % 45.0 - 07/ HI [place] 75.0 /2012 [facility] HEMATOLOGY Lymphocytes 8.6 % 20.0 - 07 LOW [place] 40.0 /2012 [facility] HEMATOLOGY Basophils 0.3 % 0.0 - 1.0 07/ Normal [facility] HEMATOLOGY Segs-Bands # 6.2 K/CMM 1.5 - 8.1 07/ Normal [facility] HEMATOLOGY Lymphocytes # 0.6 K/CMM 1.0 - 5.5 07 LOW [facility] HEMATOLOGY Eosinophils 0.1 % 0.0 - 4.0 07/ Normal [facility] HEMATOLOGY Monocytes 1.1 % 2.0 - 12.0 07/ LOW [facility] HEMATOLOGY Monocytes # 0.1 K/CMM 0.0 - 0.8 02/17 Normal [facility] HEMATOLOGY Hct 34.3 % 36.0 - 07 LOW [place] 48.0 /2012 [facility] HEMATOLOGY MCV 95.7 fL 81.0 - 07 Normal [place] 99.0 /2012 [facility] HEMATOLOGY WBC 6.9 K/CMM 3.7 - 10.4 07 Normal /2012 [facility] HEMATOLOGY RDW 13.0 % 11.5 - 07/ Normal [place] 14.5 /2012 [facility] HEMATOLOGY MCHC 33.3 g/dL 32.0 - 07 Normal [place] 36.0 /2012 [facility] HEMATOLOGY Platelet 232 K/CMM 133 - 450 07/ Normal [facility] HEMATOLOGY MCH 31.9 pg 27.0 - 0716 HI [place] 31.0 /2012 [facility] HEMATOLOGY RBC 3.59 M/CMM 4.20 - 0716 LOW [place] 5.40 /2012 [facility] HEMATOLOGY Hgb 11.4 g/dL 12.0 - 07 LOW [place] 16.0 /2012 [facility] HEMATOLOGY MPV 9.1 fL 7.4 - 10.4 07/ Normal [facility] HEMATOLOGY PTT 33.5 s 22.9 - 07 Normal 12Interpretiv [facility] [place] 35.8 /2013 e Data: [facility] Heparin Center Therapeutic Range: 57 - 92 Seconds HEMATOLOGY INR 1.14 0.85 - 02/17 Normal 10Interpretive Data: RECOMMENDED RANGES FOR PROTIME INR: [facility] . 2.0-3.0 for most medical and surgical thromboembolic states. Medical 2.5-3.5 for artificial heart valves and recurrent embolism. Center INR SHOULD BE USED ONLY FOR PATIENTS ON STABLE ANTICOAGULANT THERAPY. HEMATOLOGY PT 14.8 s 12.0 - 02/17 [facility] [place] 14. [facility] BLOOD BANK Antibody Scrn Negative 02/16 Normal [facility] RESULTS Medical (02/16/2013 10:25:29) Center BLOOD BANK ABO/Rh O POS 02/16 Unknown [facility] HEMATOLOGY Lymphocytes 44.8 % 20.0 - 07 [facility] [place] 40.0 [facility] HEMATOLOGY Segs 36.8 % 45.0 - 07 LOW [place] 75.0 [facility] HEMATOLOGY Eosinophils 4.9 % 0.0 - 4.0 / [facility] HEMATOLOGY Monocytes 12.1 % 2.0 - 12.0 07/ HI [facility] HEMATOLOGY Basophils 1.4 % 0.0 - 1.0 / HI [facility] HEMATOLOGY Lymphocytes # 2.3 K/CMM 1.0 - 5.5 07/ Normal [facility] HEMATOLOGY Segs-Bands # 1.8 K/CMM 1.5 - 8.1 02/11 Normal [facility] HEMATOLOGY Monocytes # 0.6 K/CMM 0.0 - 0.8 / Normal [facility] HEMATOLOGY Eosinophils # 0.2 K/CMM 0.0 - 0.5 07/ Normal [facility] HEMATOLOGY Basophils # 0.1 K/CMM 0.0 - 0.2 / Normal [facility] HEMATOLOGY PTT 32.5 s 22.9 - 02/11 Normal 13Interpretiv [facility] 35. e Data: [facility] Heparin Center Therapeutic Range: 57 - 92 Seconds HEMATOLOGY PT 14.2 s 12.0 - 0710 Normal [place] 14. [facility] HEMATOLOGY INR 1.08 0.85 - 02/11 Normal 11Interpretive Data: RECOMMENDED RANGES FOR PROTIME INR: [facility] 1.17 /2012 2.0-3.0 for most medical and surgical thromboembolic states. Medical 2.5-3.5 for artificial heart valves and recurrent embolism. Center INR SHOULD BE USED ONLY FOR PATIENTS ON STABLE ANTICOAGULANT THERAPY. HEMATOLOGY MCHC 33.3 g/dL 32.0 - 07/10 Normal [facility] 36.0 /2012 [facility] HEMATOLOGY MPV 9.4 fL 7.4 - 10.4 07/ Normal /2012 [facility] HEMATOLOGY RDW 12.8 % 11.5 - 07/10 Normal [facility] 14.5 /2012 [facility] HEMATOLOGY Platelet 232 K/CMM 133 - 450 07/ Normal /2012 [facility] HEMATOLOGY WBC 5.0 K/CMM 3.7 - 10.4 07/ Normal /2012 [facility] HEMATOLOGY Hct 36.4 % 36.0 - 07/10 Normal [facility] 48.0 /2012 [facility] HEMATOLOGY MCV 94.7 fL 81.0 - 0710 Normal [facility] 99.0 /2012 [facility] HEMATOLOGY MCH 31.5 pg 27.0 - 07/10 HI [facility] 31.0 /2012 [facility] HEMATOLOGY Hgb 12.1 g/dL 12.0 - 0710 Normal [facility] 16.0 /2012 [facility] HEMATOLOGY RBC 3.85 M/CMM 4.20 - 07/10 LOW [facility] 5.40 /2013 [facility] Vital Signs Vital Sign Value Date Comments Source Systolic (mm Hg) 99 11/29/2015 [facility] Diastolic (mm Hg) 53 11/29/2015 [facility] Temperature Oral (F) 97.2 F 11/29/2015 [facility] Respitory Rate 18 11/29/2015 [facility] Heart Rate 53 11/29/2015 [facility] Systolic (mm Hg) 99 11/29/2015 [facility] Diastolic (mm Hg) 63 11/29/2015 [facility] Systolic (mm Hg) 94 11/29/2015 [facility] Diastolic (mm Hg) 53 11/29/2015 [facility] Respitory Rate 18 11/29/2015 [facility] Heart Rate 51 11/29/2015 [facility] Temperature Oral (F) 97.6 F 11/29/2015 [facility] Temperature Oral (F) 97 F 11/29/2015 [facility] Heart Rate 52 11/29/2015 [facility] Center Respitory Rate 18 11/29/2015 [facility] Weight 63.636 11/29/2015 [facility] BMI Calculated 20.13 11/29/2015 [facility] Height 177.8 cm 11/29/2015 [facility] Heart Rate 58 03/10/2013 [facility] Temperature Oral (F) 97.8 F 03/10/2013 [facility] Center Respitory Rate 16 03/10/2013 [facility] Diastolic (mm Hg) 65 03/10/2013 [facility] Systolic (mm Hg) 104 03/10/2013 [facility] Heart Rate 47 03/10/2013 [facility] Respitory Rate 16 03/10/2013 [facility] Temperature Oral (F) 97.9 F 03/10/2013 [facility] Center Diastolic (mm Hg) 66 03/10/2013 [facility] Systolic (mm Hg) 100 03/10/2013 [facility] Respitory Rate 16 03/10/2013 [facility] Heart Rate 92 03/10/2013 [facility] Temperature Oral (F) 98.1 F 03/10/2013 [facility] Center Diastolic (mm Hg) 69 03/10/2013 [facility] Systolic (mm Hg) 103 03/10/2013 [facility] Weight 56 03/09/2013 [facility] Height 177.8 cm 03/09/2013 [facility] Weight 56 03/07/2013 [facility] Weight 56.818 03/07/2013 [facility] Height 177.8 cm 03/07/2013 [facility] Systolic (mm Hg) 96 02/18/2013 [facility] Diastolic (mm Hg) 49 02/18/2013 [facility] Respitory Rate 18 02/18/2013 [facility] Heart Rate 60 02/18/2013 [facility] Temperature Oral (F) 97.6 F 02/18/2013 [facility] Diastolic (mm Hg) 63 02/18/2013 [facility] Systolic (mm Hg) 102 02/18/2013 [facility] Respitory Rate 18 02/18/2013 [facility] Heart Rate 53 02/18/2013 [facility] Temperature Oral (F) 97.6 F 02/18/2013 [facility] Systolic (mm Hg) 99 02/18/2013 [facility] Diastolic (mm Hg) 56 02/18/2013 [facility] Respitory Rate 18 02/18/2013 [facility] Heart Rate 58 02/18/2013 [facility] Temperature Oral (F) 98.0 F 02/18/2013 [facility] Weight 63.009 02/17/2013 [facility] Height 177.8 cm 02/17/2013 [facility] Height 162.4 cm 02/17/2013 [facility] Weight 61.364 02/17/2013 [facility] Height 177.8 cm 02/11/2013 [facility] Weight 61.364 02/11/2013 [facility] Encounters Location Location Encounter Encounter Reason Attending ADM DC Status Source Details Type Number For Provider Date Date Visit [facility] Inpatient [id number] KASSIE VARGAS 02/16 02/18 Active [facility]2012 [facility] Inpatient [id number] INCISION KASSIE VARGAS 03/09 03/10 Active [facility] /2012 [facility] ULENT DISCHARG E FROM WOUND Outpatient [id number] KASSIE VARGAS 08/30 [facility] [place] Outpatient [id number] KASSIE VARGAS 10/17 [facility] [id number] [place] 11/28 11/28 [facility] /2015 [facility] Outpatient [id number] ADOLFO 12/17 [facility] Outpatient [id number] NIKOLAY VARGAS Cancel [facility] PER [facility]NER [id number] * Procedures Procedure Code Date Perfomer Comments Source Craniectomy [id number] 1Chiari [facility] <sup>1</sup> [facility] Appendectomy [id number] [facility] Augmentation [id number] [facility] Craniectomy<sup>1< [id number] Chiari [facility] /sup> [facility] Knee joint [id number] [facility] Oophorectomy [id number] [facility] Tubal ligation [id number] [facility]
--- OUTSIDE RECORDS SUMMARY | 2018-10-15 12:34 | XMS REPORT | CCD ---
:1980 Author Organization [facility] Care Team Providers Name Role Phone Pedro [...] mg, 1 supp, Route: 02/16/2013 02/16/2013 Discontinued GA, Drug form: SUPP, Daily, Dosing Weight 61.364, [...] values reflect the clinical guidelines of the [place] [employer].8Interpretive Data: Adult reference range values reflect the clinical guidelines of the [place] [employer].9Interpretive Data: Adult reference range values reflect the clinical guidelines of the [place] [employer].HEMATOLOGY Most recent to oldest 1 [...] Data: Heparin Therapeutic Range: 57 - 92 [id number] Data: Heparin Therapeutic Range: 57 - 92 Seconds
--- OUTSIDE RECORDS SUMMARY | 2018-10-15 12:34 | XMS REPORT | CCD ---
:1980 Author Organization [facility] Care Team Providers Name Role Phone [...] 30 mL, Route: IV, 03/09/2013 03/10/2013 Discontinued DISH CLOTH INSPECTOR (15mg/30 mL) 15 mg DISH CLOTH INSPECTOR Dose: 0.2 mg, DISH CLOTH INSPECTOR Lockout: 8 minutes, 4 Hour Limit (In MG): 6, Drug Form: INJ, Continuous, STAT, Start date: 03/09/13 16:20:00, Duration: 30 day, Stop date: 04/08/13 16:19:00 vancomycin + Sodium 1.25 gm, Route: IV, 03/07/2013 03/10/2013 Discontinued Chloride 0.9% IV 250 mL [id number], Dosing Weight 56.818, kg, Start date: 03/07/13 [...] date: 03/07/13 16:14:00, Stop date: 03/07/13 16:14:00 [place] 10/325 oral tablet 1 tab, Route: PO, [...] values reflect the clinical guidelines of the [place] [employer].4Interpretive Data: Adult reference range values reflect the clinical guidelines of the [place].5Interpretive Data: Therapeutic Range: Trough: 10 [...] posr surgical wound fluif or non stat [id number] FINAL REPORTS Final ReportModerate Staphylococcus aureus PRELIMINARY [...] Of Choice. Phone Report Made To: NIYA, [id number], Savi Majano RN At: 03/08/2013 23:01:25 Called By: LIA Read Back Ok PROCEDURE:Culture: Wound/Abscess w/Gram Stain STATUS: Auth (Verified) BODY SITE: Neck COLLECTED DATE/TIME: 03/08/2013 19:00:00 SOURCE: Wound, Surg FREE TEXT SOURCE: O2 swab-back of head FINAL REPORTS Final ReportModerate Staphylococcus aureus Refer To Culture # [id number] collected 03-09-13 For Susceptibility ResultsPRELIMINARY REPORTS Preliminary ReportModerate Staphylococcus aureus Procedures Procedures Date Related Diagnosis Craniectomy 1 1Chiari Malformation
[2018-10-15] MEDS ORDERED: KETOROLAC 30 MG/ML INJ ONE (14:05)
[2018-10-15 14:13] LABS: Urine Blood NEGATIVE (NEG); Urine Glucose NEGATIVE (NEG); Urine Protein NEGATIVE (NEG); Urine Specific Gravity 1.015 (1.005-1.030); Urine pH 7.5 (5.0-7.0)
--- NOTE | 2018-10-15 14:36 | EDPHYS ---
Physician Documentation [facility] Name: Deyanira Del Castillo Age: 38 yrs Sex: Female : 1980 Arrival Date: 10/15/2018 Time: 12:28 Bed 12 Private MD: ED Physician Levi Agudelo HPI: 10/15 13:50 This 38 yrs old Female presents to ER via Ambulatory with complaints of cp Shoulder Pain. 13:50 The patient or guardian complains of decreased range of motion, pain, that is acute, cp tenderness. right shoulder. 13:50 Context: resulted from lifting or carrying, weight while at work yesterday and today, cp The patient experiences decreased range of motion, when attempts to raise arm, The patient reports no obvious deformity. 13:50 Onset: The symptoms/episode began/occurred yesterday, and became worse today. cp Associated signs and symptoms: Pertinent negatives: chest pain, neck pain, Numbness in right arm Weakness in right arm. 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 - Social history:: Smoking status: Patient/guardian denies using tobacco. - Ebola Screening: : Patient negative for fever greater than or equal to 101.5 degrees Fahrenheit, and additional compatible Ebola Virus Disease symptoms Patient denies exposure to infectious person Patient denies travel to an Ebola-affected area in the 21 days before illness onset No symptoms or risks identified at this time. ROS: 14:00 Constitutional: Negative for body aches, chills, fever, poor PO intake. cp 14:00 Eyes: Negative for injury, pain, redness, and discharge. cp Exam: 14:10 Constitutional: The patient appears in no acute distress, alert, awake, non-toxic, well cp developed, well nourished, uncomfortable. 14:10 Head/Face: Normocephalic, atraumatic. cp 14:10 Eyes: Periorbital structures: appear normal, Conjunctiva: normal, no exudate, no injection, Sclera: no appreciated abnormality, Lids and lashes: appear normal, bilaterally. 14:10 ENT: External ear(s): are unremarkable, Nose: is normal, Mouth: Lips: moist, Oral mucosa: moist, Posterior pharynx: Airway: no evidence of obstruction, patent. 14:10 Neck: C-spine: vertebral tenderness, is not appreciated, crepitus, is not appreciated, ROM/movement: is normal, is supple, without pain, no range of motions limitations, no nuchal rigidity. 14:10 Chest/axilla: Inspection: normal, Palpation: is normal, no crepitus, no tenderness. 14:10 Cardiovascular: Rate: normal, Rhythm: regular, Pulses: Pulses are 2+ in right radial artery. 14:10 Respiratory: the patient does not display signs of respiratory distress, Respirations: normal, no use of accessory muscles, no retractions, no splinting, no tachypnea, labored breathing, is not present, Breath sounds: are clear throughout, no decreased breath sounds, no stridor, no wheezing. 14:10 Musculoskeletal/extremity: Extremities: grossly normal except: noted in the right lateral shoulder: decreased ROM, pain, tenderness, There is no evidence of deformity, ROM: limited passive range of motion due to pain, in the right shoulder, Perfusion: the extremity is normally perfused throughout, Sensation intact. Vital Signs: 13:03 BP 111 / 82; Pulse 92; Resp 18 S; Temp 98.2; Pulse Ox 100% ; Weight 63.5 kg; Height 5 sg ft. 10 in. (177.80 cm); Pain 8/10; 13:03 Body Mass Index 20.09 (63.50 kg, 177.80 cm) Procedures: 14:30 Splinting: Splint applied to right shoulder using sling, applied by nurse. Examined by cp me, post splint application: neurovascular intact, Patient tolerated well. MDM: 13:08 Patient medically screened. cp 14:00 Differential diagnosis: Anterior dislocation with fracture, Anterior dislocation cp without fracture, Posterior dislocation with fracture, Posterior dislocation without fracture, tendonitis. 14:33 Data reviewed: vital signs, nurses notes, radiologic studies, plain films, and as a cp result, I will discharge patient. 14:33 Test interpretation: by ED physician or midlevel provider: plain radiologic studies. cp Counseling: I had a detailed discussion with the patient and/or guardian regarding: the historical points, exam findings, and any diagnostic results supporting the discharge/admit diagnosis, radiology results, the need for outpatient follow up, a orthopedic surgeon, to return to the emergency department if symptoms worsen or persist or if there are any questions or concerns that arise at home. Response to treatment: the patient's symptoms have mildly improved after treatment, and as a result, I will discharge patient. 10/15 14:07 Order name: Urine Dipstick--Ancillary (enter results); Complete Time: 14:33 bd 10/15 14:07 Order name: Urine --Ancillary (enter results); Complete Time: 14:33 bd 10/15 13:41 Order name: XRAY Shoulder RIGHT 2 view; Complete Time: 14:57 cp 10/15 13:41 Order name: Urine Dipstick-Ancillary (obtain specimen); Complete Time: 13:50 cp 10/15 13:41 Order name: Urine Test (obtain specimen); Complete Time: 13:50 cp 10/15 13:41 Order name: Sling; Complete Time: 13:52 cp Administered Medications: 14:03 Drug: TORadol 60 mg Route: IM; Site: right gluteus; aa5 14:30 Follow up: Response: No adverse reaction; Pain is unchanged, physician notified aa5 14:48 Drug: Flexeril 10 mg Route: PO; aa5 14:50 Follow up: Response: Medication administered at discharge. aa5 14:48 Drug: Hydrocodone-Acetaminophen (7.5 mg-325 mg) 1 tabs Route: PO; aa5 14:50 Follow up: Response: Medication administered at discharge. aa5 Disposition: 15:13 Co-signature as Attending Physician, Levi Agudelo MD I agree with the assessment and kathleen plan of care. Disposition: 10/15/18 14:35 Discharged to Home. Impression: Pain in right shoulder. - Condition is Stable. - Discharge Instructions: Shoulder Pain, Shoulder Range of Motion Exercises. - Prescriptions for Cyclobenzaprine 10 mg Oral Tablet - take 1 tablet by ORAL route every 8 hours As needed no driving while taking medication; 20 tablet. Diclofenac Sodium 75 mg Oral Tablet, Delayed Release (E.C.) - take 1 tablet by ORAL route 2 times per day; 20 tablet. Tramadol 50 mg Oral Tablet - take 1 tablet by ORAL route every 8 hours As needed as needed. no driving while taking medication; 12 tablet. - Work release form, Medication Reconciliation Form, Thank You Letter, Antibiotic Education, Prescription Opioid Use form. - Follow up: Ricardo Rodgers MD; When: 2 - 3 days; Reason: Recheck today's complaints. - Problem is new. - Symptoms have improved. Signatures: Dispatcher [employer] Shea Abdi RN RN dm5 Bill Marshall RN Levi Desai MD MD cha Calderon, Audri, RN RN aa5 Levi Majano PA PA cp Corrections: (The following items were deleted from the chart) 15:00 14:35 10/15/2018 14:35 Discharged to Home. Impression: Pain in right shoulder. aa5 Condition is Stable. Forms are Medication Reconciliation Form, Thank You Letter, Antibiotic Education, Prescription Opioid Use. Follow up: Ricardo Rodgers; When: 2 - 3 days; Reason: Recheck today's complaints. Problem is new. Symptoms have improved. cp
--- NOTE | 2018-10-15 14:36 | ER ---
Nurse's Notes [facility] Name: Deyanira Del Castillo Age: 38 yrs Sex: Female : 1980 Arrival Date: 10/15/2018 Time: 12:28 Bed 12 Private MD: Diagnosis: Pain in right shoulder Presentation: 10/15 13:05 Presenting complaint: Patient states: was moving weights from one place to another at work, felt a pop in her right shoulder, now has right shoulder and right neck pain, chronic history of injuries to the right shoulder with ortho follow up reported, cant recall ortho name but here in [place]. Transition of care: patient was not received from another setting of care. Onset of symptoms was October 15, 2018. Risk Assessment: Do you want to hurt yourself or someone else? Patient reports no desire to harm self or others. Initial Sepsis Screen: Does the patient meet any 2 criteria? No. Patient's initial sepsis screen is negative. Does the patient have a suspected source of infection? No. Patient's initial sepsis screen is negative. Care prior to arrival: None. 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 - Social history:: Smoking status: Patient/guardian denies using tobacco. - Ebola Screening: : Patient negative for fever greater than or equal to 101.5 degrees Fahrenheit, and additional compatible Ebola Virus Disease symptoms Patient denies exposure to infectious person Patient denies travel to an Ebola-affected area in the 21 days before illness onset No symptoms or risks identified at this time. Screenin:30 Abuse screen: Denies threats or abuse. Nutritional screening: No deficits noted. aa5 Tuberculosis screening: No symptoms or risk factors identified. Fall Risk None identified. Assessment: 13:30 General: Appears uncomfortable, Behavior is calm, cooperative. Pain: Complains of pain aa5 in right shoulder Pain currently is 8 out of 10 on a pain scale. Quality of pain is described as sharp, Is continuous, Aggravated by increased activity. Neuro: Level of Consciousness is awake, alert, obeys commands, Oriented to person, place, time, situation. Cardiovascular: No deficits noted. Respiratory: Airway is patent Respiratory effort is even, unlabored, Respiratory pattern is regular, symmetrical. GI: No signs and/or symptoms were reported involving the gastrointestinal system. : No signs and/or symptoms were reported regarding the genitourinary system. EENT: No signs and/or symptoms were reported regarding the EENT system. Derm: Skin is pink, warm \T\ dry. Musculoskeletal: Reports pain in right shoulder. 13:50 Reassessment: UPT: Negative . X-ray notified. . aa5 14:03 Reassessment: Patient is alert, oriented x 3, equal unlabored respirations, skin aa5 warm/dry/pink. Pt reports x-ray was completed already. Sling applied to right arm . 14:55 Reassessment: Patient is alert, oriented x 3, equal unlabored respirations, skin aa5 warm/dry/pink. Vital Signs: 13:03 BP 111 / 82; Pulse 92; Resp 18 S; Temp 98.2; Pulse Ox 100% ; Weight 63.5 kg; Height 5 sg ft. 10 in. (177.80 cm); Pain 8/10; 13:03 Body Mass Index 20.09 (63.50 kg, 177.80 cm) sg ED Course: 12:28 Patient arrived in ED. as 12:37 Arm band placed on. dm5 13:06 Triage completed. sg 13:08 Levi Majano PA is PHCP. cp 13:08 Levi Agudelo MD is Attending Physician. cp 13:22 Abbie Cunningham, DOV is Primary Nurse. aa5 13:50 Patient has correct armband on for positive identification. aa5 14:09 No provider procedures requiring assistance completed. aa5 14:34 Ricardo Rodgers MD is Referral Physician. cp 14:40 XRAY Shoulder RIGHT 2 view In Process Unspecified. EDMS 14:55 Patient did not have IV access during this emergency room visit. aa5 Administered Medications: 14:03 Drug: TORadol 60 mg Route: IM; Site: right gluteus; aa5 14:30 Follow up: Response: No adverse reaction; Pain is unchanged, physician notified aa5 14:48 Drug: Flexeril 10 mg Route: PO; aa5 14:50 Follow up: Response: Medication administered at discharge. aa5 14:48 Drug: Hydrocodone-Acetaminophen (7.5 mg-325 mg) 1 tabs Route: PO; aa5 14:50 Follow up: Response: Medication administered at discharge. aa5 Outcome: 14:35 Discharge ordered by . cp 14:55 Discharged to home ambulatory, with friend. aa5 14:55 Condition: stable 14:55 Discharge instructions given to patient, Instructed on discharge instructions, follow up and referral plans. medication usage, Demonstrated understanding of instructions, follow-up care, medications, Prescriptions given X 3. 15:00 Patient left the ED. aa5 Signatures: Dispatcher [employer] EDMS Shea Landers RN RN dm5 Bill Marshall RN Alexandra Marley Audri, RN RN aa5 Levi Majano, PA STARR cp Corrections: (The following items were deleted from the chart) 14:10 13:30 Pain: Complains of pain in right shoulder Pain Quality of pain is described as aa5 sharp, Is continuous, Aggravated by increased activity, aa5
--- NOTE | 2018-10-15 14:48 | RAD REPORT ---
EXAM DESCRIPTION: RAD - Shoulder Right 2 View - 10/15/2018 2:40 pm CLINICAL HISTORY: PAIN COMPARISON: Shoulder Right 2 View dated 01/16/2018 FINDINGS: No bone or joint abnormality is detected.
[2018-10-15] MEDS ORDERED: CYCLOBENZAPRINE 10 MG TAB ONE (14:57)
[2018-10-15] MEDS ORDERED: HYDROCODONE/APAP 7.5/325 MG TAB ONE (14:58)
[2018-10-15 15:20] VITALS: BP 111/82; TEMP 98.2; O2SAT 100
== END 2018-10-15 15:00 | disposition home or self-care (01) ==
LOC: ER 12:26
DX: M25.511 Pain in right shoulder (principal)
CPT/HCPCS: 81003; 81025; 96372; 99283

== ENCOUNTER 2019-04-15 16:04 | Emergency (ER) | payer SELFPAY ==
--- OUTSIDE RECORDS SUMMARY | 2019-04-15 16:10 | XMS REPORT | Continuity of Care Document ---
:1980 Author Organization [facility] Care Team Providers Name Role Phone [facility] Unavailable Unavailable Problems Problem Status Onset Classification Date Comments Source Date Reported CAUDA EQUINA Active 11/28/19 [facility] SYNDROME 16 [facility] CHIARI Active 09/01/19 [facility] MALFORMATION 16 [facility] INCISIONAL Active 03/07/20 [facility] PAIN,PURULENT 13 Medical DISCHARGE FROM Center INFECTED SURGERY Active 03/07/20 [facility] INCISION [address] [place] [address] Center KIARI Active 02/06/20 [facility] MALFORMATIONOK 13 Medical PER ABNER Center [id number] CHAIRI Active 01/28/[address] Murmur Active Problem 03/12/2013 [facility] Pain Active Problem 03/12/2013 [facility] PUD - Peptic Active Problem 03/12/2013 [facility] ulcer disease [facility] Chiari Resolved Problem 11/23/2018 [facility] malformation Neuro, (disorder) [facility] Fibromyalgia Active Problem 11/23/2018 Mischer (disorder) Neuro Heart murmur Active Problem 11/23/2018 patient Mischer (finding) states she Neuro, had heart [place] [facility] [place] enital [place] Neck pain Resolved Problem 11/23/2018 patient Mischer (finding) states her Neuro, neck pain [place] is due to [facility] Center malformatio n. Pain (finding) Active Problem 11/23/2018 [facility] Neuro,[facility] Chiari Resolved Problem 03/12/2013 [facility] Neck pain Resolved Problem 03/12/2013 [facility] COMPRESSION OF Active [facility] BRAIN [facility] OTHER GENERAL Active [facility] Medications Medication Details Route Status Patient Ordering Order Source Instructions Provider Date Saline Flush 10 ml, Route: Inactive [facility] 0.9% MISC, Drug 2015 Medical Form: INJ, Center Dosing Weight 63.636, kg, Q12H, Start date: 11/29/15 9:00:00 CDT, Duration: 30 day, Stop date: 12/28/15 21:00:00 CDTNotes: (Same as: BD Posiflush) sennosides, GROUP HOME 8.6 mg, 1 tab, Inactive [facility] Route: PO, 2015 Medical Drug Form: Center TAB, Dosing Weight 63.636, kg, Q12H, Start date: 11/29/15 9:00:00 CDT, Duration: 30 day, Stop date: 12/28/15 21:00:00 CDTNotes: (Same as: Senokot) Docusate 100 mg, 1 cap, Inactive 11/28[facility] Route: PO, 2015 Medical Drug form: Center CAP, Q12H, Dosing Weight 63.636, kg, Start date: 11/29/15 9:00:00 CDT, Duration: 30 day, Stop date: 12/28/15 21:00:00 CDTNotes: (Same as: Colace) (Do Not Crush) Ketorolac 10 mg=1 tab, Active [facility] Tromethamine 10 PO, Q6H, PRN 2016 Medical MG Oral Tablet Pain, X 5 day, Center # 20 tab, 0 Refill(s) Acetaminophen 1 tab, PO, Inactive 11/28[facility] 300 MG / Codeine Q4H, PRN Pain, 2016 Medical Phosphate 30 MG X 7 day, # 42 Center Oral Tablet tab, 0 [Tylenol with Refill(s) Codeine #3] docusate sodium 100 mg=1 cap, Inactive 11/28[facility] 100 mg oral PO, Q12H, # 10 2016 Medical capsule cap, 0 Center Refill(s) cyclobenzaprine 10 mg=1 tab, Inactive 11/28[facility] 10 mg oral PO, TID, PRN 2016 Medical tablet Spasm, # 30 Center tab, 0 Refill(s) Morphine 2 mg, 1 mL, Inactive 11/28[facility] Route: IVP, 2015 Medical Drug form: Center INJ, Q4H, Dosing Weight 63.636, kg, PRN Pain Score 7-10, Start date: 11/29/15 1:16:00 CDT, Duration: 30 day, Stop date: 12/29/15 1:15:00 CDTNotes: (Same as:MORPhine Sulfate) Flexeril 10 mg, 1 tab, Inactive 04/26[facility] Route: PO, 2015 Medical Drug form: [place] TAB, TID, Dosing Weight 63.636, kg, PRN Spasm, Start date: 11/29/15 1:16:00 CDT, Duration: 30 day, Stop date: 12/29/15 1:15:00 CDTNotes: (Same As: Flexeril) Labetalol 10 mg, 2 mL, Inactive [facility] Route: IVP, 2015 Medical Drug form: [place] INJ, Q15Min, Dosing Weight 63.636, kg, PRN Hypertension, Start date: 11/29/15 1:14:00 CDT, Duration: 3 doses or times, Stop date: Limited # of times Hydralazine 10 mg, 0.5 mL, Inactive [facility] Route: IV, 2015 Medical Drug form: [place] INJ, Q4H, Dosing Weight 63.636, kg, PRN Hypertension, Start date: 11/29/15 1:14:00 CDT, Duration: 30 day, Stop date: 12/29/15 1:13:00 CDTNotes: (Same as: Apresoline) Push over 5 minutes Saline Flush 10 ml, Route: Inactive [facility] 0.9% MISC, Drug 2015 Medical Form: INJ, [place] Dosing Weight 63.636, kg, PRN, PRN Line Flush, Start date: 11/29/15 1:12:00 CDT, Duration: 30 day, Stop date: 12/29/15 1:11:00 CDTNotes: (Same as: BD Posiflush) Regular Insulin, 3 unit, 0.03 Inactive [facility] Human 100 UNT/ML mL, Route: 2016 Medical Injectable SUB-Q, Drug [place] Solution form: SOLN, PRN, Dosing Weight 63.636, [...] Syringe Route: IVP, 2015 Medical Drug Form: [place] INJ, Dosing Weight 63.636, kg, PRN, PRN Abnormal Lab Result, Start date: 11/29/15 1:12:00 CDT, Duration: 30 day, Stop date: 12/29/15 1:11:00 CDT Sodium Chloride 1,000 mL, Inactive [facility] 0.154 MEQ/ML Rate: 75 2015 Medical Injectable ml/hr, Infuse [place] Solution over: 13.3 hr, Route: IVPB, Dosing Weight 63.636 kg, Total Volume: 1,000, Start date: 11/29/15 1:12:00 CDT, Duration: 30 day, Stop date: 12/29/15 1:11:00 CDT Ondansetron 4 mg, 2 mL, Inactive [facility] Route: IVP, 2015 Medical Drug form: [place] INJ, Q8H, Dosing Weight 63.636, kg, PRN Nausea & Vomiting, Start date: 11/29/15 1:12:00 CDT, Duration: 30 day, Stop date: 12/29/15 1:11:00 CDTNotes: (Same as: Zofran) MEDICATION WASTE Product Size: 4 mg Product Wasted: ___ mg Bisacodyl 10 mg, 1 supp, Inactive [facility] Route: CT, 2015 Medical Drug form: [place] SUPP, Daily, Dosing Weight 63.636, kg, PRN [...] not exceed 4gm/day of acetaminophen. (Same as: [place] 325/10) Morphine 2 mg, Route: Inactive [facility] IVP, Q1H, 2015 Medical Dosing Weight Center 63.636, kg, PRN Pain Score 7-10, Start date: 11/29/15 1:12:00 CDT, Duration: 30 day, Stop date: 12/29/15 1:11:00 CDT Acetaminophen 1 tab, PO, Active [facility] 325 MG / BID, 0 2015 Medical Hydrocodone Refill(s) [place] Bitartrate 10 MG Oral Tablet [[place] [address]] pregabalin 200 200 mg=1 cap, Active [facility] mg oral capsule PO, TID, # 30 2015 Medical cap, 1 Center Refill(s) Keflex 500 mg 500 mg, 1 cap, PO Active Broderick [facility] oral capsule PO, QID, 56 2012 Medical cap, Center Substitution Allowed, CAP Keflex 500 mg 500 mg, 1 cap, PO Active Esquenazi [facility] oral capsule PO, QID, 28 Lay 2012 Medical cap, Center Substitution Allowed, CAP acetaminophen-hy 1 tab, PO, PO Active Esquenayari [facility] drocodone 325 Q4H, PRN, 50 Lay 2012 Medical mg-10 mg oral tab, Pain Center tablet Score 4-6, Substitution Allowed, Maintenance, TAB Remove - 1 patch, TOP No Longer Alex [facility] lidocaine Route: TOP, Active 2012 Medical topical patch Daily, Drug Center form: ERFILM, Start date: 03/10/13 5:00:00, Duration: 30 day, Stop date: 04/08/13 5:00:00 Celebrex 200 mg, 2 cap, PO No Longer Alex [facility] Route: PO, Active 2012 Medical Drug form: Center CAP, Q12H, Dosing Weight 56, kg, Start date: 03/10/13 4:00:00, Duration: 30 day, Stop date: 04/08/13 16:00:00 Lyrica 100 mg, 1 cap, PO No Longer Alex [facility] Route: PO, Active 2012 Medical Drug form: Center CAP, Q8H, Dosing Weight 56, kg, Start date: 03/10/13 0:00:00, Duration: 30 day, Stop date: 04/08/13 16:00:00 tramadol 100 mg, 2 tab, PO No Longer Johnson [facility] Route: PO, Active 2012 Medical Drug form: [place] TAB, Q6H, Dosing Weight 56, kg, Start date: 03/09/13 18:00:00, Duration: 30 day, Stop date: 04/08/13 12:00:00 ibuprofen 400 mg 800 mg, 2 tab, PO No Longer Hernandez [facility] oral tablet Route: PO, Active 2012 Medical Drug form: [place] TAB, Q6H, Dosing Weight 56, kg, PRN Pain, Start date: 03/09/13 17:32:00, Duration: 30 day, Stop date: 04/08/13 17:31:00 Lidoderm 5% 1 patch, TOP No Longer Alex [facility] topical film Route: TOP, Active 2012 Medical (patch) Daily, Drug Center form: FILM, on 12 hrs and off 12 hrs, Start date: 03/09/13 17:00:00, Duration: 30 day, Stop date: 04/07/13 17:00:00, Remove after 12 hoursRemove after 12 hours Celebrex 200 mg, Route: PO No Longer Johnson 03/09[facility] PO, Drug form: Active 2012 Medical CAP, BID, Center Dosing Weight 56, kg, Start date: 03/09/13 17:00:00, Duration: 30 day, Stop date: 04/08/13 9:00:00 HYDROmorphone 15 mg, 30 mL, IV No Longer Cheli [facility] 0.5mg/mL CONTINUITY COORDINATOR Route: IV, CONTINUITY COORDINATOR Active 2012 Medical (15mg/30 mL) 15 Dose: 0.2 mg, Center mg CONTINUITY COORDINATOR Lockout: 8 minutes, 4 Hour Limit (In MG): 6, Drug Form: INJ, Continuous, STAT, Start date: 03/09/13 16:20:00, Duration: 30 day, Stop date: 04/08/13 16:19:00 [place] 10/325 1 tab, Route: PO No Longer Johnson 03/09[facility] oral tablet PO, Drug Form: Active 2012 Medical TAB, Dosing Center Weight 56, kg, Q4H, Start date: 03/09/13 16:00:00, Duration: 30 day, Stop date: 04/08/13 12:00:00 Robaxin 1,000 mg, 2 PO No Longer Johnson [facility] tab, Route: Active 2012 Medical PO, Drug form: [place] TAB, Q8H, Dosing Weight 56, kg, Start date: 03/09/13 16:00:00, Duration: 30 day, Stop date: 04/08/13 8:00:00 Dilaudid 2 mg, 1 mL, IV No Longer Hernandez [facility] Route: IV, Active 2012 Medical Drug form: [place] INJ, Q2H, Dosing Weight 56, kg, PRN Pain, Start date: 03/09/13 15:47:00, Stop date: 03/09/13 21:00:00 Celebrex 400 mg, 4 cap, PO No Longer Johnson [facility] Route: PO, Active 2012 Medical Drug form: [place] CAP, ONCE, Dosing Weight 56, kg, Start date: 03/09/13 15:20:00, Stop date: 03/09/13 15:20:00 Lyrica 300 mg, 3 cap, PO No Longer Johnson 03/09[facility] Cait Route: PO, Active 2012 Medical Drug form: [place] CAP, ONCE, Dosing Weight 56, kg, Start date: 03/09/13 15:19:00, Stop date: 03/09/13 15:19:00 ondansetron 4 mg, 2 mL, IVP No Longer Nance 03/09[facility] Route: IVP, Active 2012 Medical Drug form: [place] INJ, ONCE, Dosing Weight 56, kg, PRN Nausea & Vomiting, Start date: 03/09/13 12:05:00 flumazenil 0.2 mg, 2 mL, IVP No Longer Nance 03/09[facility] Cait Route: IVP, Active 2012 Medical Drug form: [place] INJ, PRN, Dosing Weight 56, kg, PRN Benzodiazepine Reversal, Initial dose, Start date: 03/09/13 12:05:00, Duration: 30 day, Stop date: 04/08/13 12:04:00 naloxone 0.04 mg, 0.1 IVP No Longer Nance 03/09[facility] mL, Route: Active 2012 Medical IVP, Drug Center form: INJ, Q2MIN, Dosing Weight 56, kg, PRN Narcotic Reversal, Start date: 03/09/13 12:05:00, Duration: 8 doses or times, Stop date: Limited # of times hydromorphone 0.5 mg, 0.25 IVP No Longer Alex 03/09[facility] Cait mL, Route: Active 2012 Medical IVP, Drug Center form: INJ, Q5Min, Dosing Weight 56, kg, PRN Pain Score 7-10, Start date: 03/09/13 12:05:00, Duration: 5 doses or times, Stop date: Limited # of times Phenergan 25 mg, 1 tab, [facility] Route: PO, Active 2012 Medical Drug form: Center TAB, Q6H, Dosing Weight 56, kg, PRN as needed for nausea/vomitin g, Start date: 03/09/13 11:43:00, Duration: 30 day, Stop date: 04/08/13 11:42:00 Zofran 4 mg, 1 tab, PO Active [facility] 03/09[facility] Route: PO, 2012 Medical Drug form: Center TAB, ONCE, Dosing Weight 56, kg, Start date: 03/09/13 11:43:00, Stop date: 03/09/13 11:43:00 Saline Flush 5 ml, Route: IVP No Longer Esquenazi [facility] 0.9% IVP, Drug Active Alireza 2012 Medical Form: INJ, [place] Dosing Weight 56.818, kg, Q12H, Start date: 03/07/13 21:00:00, Duration: 30 day, Stop date: 04/06/13 9:00:00 morphine Sulfate 1 mg, 0.5 mL, IV No Longer Alex 03/08[facility] Route: IV, Active 2012 Medical Drug form: Center INJ, Q2H, Dosing Weight 56, kg, PRN as needed for pain, Start date: 03/07/13 20:48:00, Duration: 30 day, Stop date: 04/06/13 20:47:00 vancomycin + 1.25 gm, IV [facility] Longer [facility] Sodium Chloride Route: IV, Active 2012 Medical 0.9% IV 250 mL [id number], Center Dosing Weight 56.818, kg, Start date: 03/07/13 20:00:00, Stop date: 04/06/13 8:00:00 cefepime 1 gm, Route: IVPB No Longer Floyd [facility] IVPB, Drug Active 2012 Medical form: INJ, Center [id number], Dosing Weight 56.818, kg, (CrCl >/=50 ml/min), Start date: 03/07/13 19:00:00, Duration: 30 day, Stop date: 04/06/13 11:00:00 Keflex 500 mg, 1 cap, PO No Longer Floyd [facility] Route: PO, Active 2012 Medical Drug form: [place] CAP, Q6H, Dosing Weight 56.818, kg, Start date: 03/07/13 18:00:00, Duration: 30 day, Stop date: 04/06/13 12:00:00 Saline Flush 5 ml, Route: IVP No Longer Esquenazi [facility] 0.9% IVP, Drug Active [place] 2012 Medical Form: INJ, [place] Dosing Weight 56.818, kg, PRN, PRN Line Flush, Start date: 03/07/13 17:42:00, Duration: 30 day, Stop date: 04/06/13 17:41:00 Sodium Chloride 1,000 mL, IV No Longer Esquenazi [facility] 0.9% IV 1,000 mL Rate: 50 Active Lay 2012 Medical ml/hr, Infuse Center over: 20 hr, Route: IV, Dosing Weight 56.818 kg, Total Volume: 1,000, Start date: 03/07/13 17:42:00, Duration: 30 day, Stop date: 04/06/13 17:41:00 tramadol 50 mg, 1 tab, PO No Longer Alex [facility] Route: PO, Active 2012 Medical Drug form: Center TAB, Q4H, Dosing Weight 56.818, kg, PRN Pain Score 1-3, Start date: 03/07/13 17:42:00, Duration: 30 day, Stop date: 04/06/13 17:41:00 acetaminophen-hy 2 tab, Route: PO No Longer Alex [facility] drocodone 325 PO, Drug Form: Active 2012 Medical mg-10 mg oral TAB, Dosing Center tablet Weight 56.818, kg, Q4H, PRN Pain Score 7-10, Start date: 03/07/13 17:42:00, Duration: 30 day, Stop date: 04/06/13 17:41:00 Omnipaque 98 mL, Route: IVP No Longer Sheikh [facility] 350mg/ml IVP, Drug Active 2012 Medical Form: SOLN, [place] Dosing Weight 56.818, kg, ONCALL, STAT, Start date: 03/07/13 17:10:00, Duration: 1 doses or times, Weight=95 - 109kg -- "To be infused by Radiology Staff ONLY"Weig ht=95 - 109kg -- "To be infused by Radiology Staff ONLY" Zofran 4 mg, 2 mL, IVP No Longer Sheikh [facility] Route: IVP, Active 2012 Medical Drug form: [place] INJ, ONCE, Dosing Weight 56.818, kg, Priority: STAT, Start date: 03/07/13 16:14:00, Stop date: 03/07/13 16:14:00 morphine Sulfate 4 mg, 1 mL, IVP No Longer Sheikh [facility] Route: IVP, Active 2012 Medical Drug form: [place] INJ, ONCE, Dosing Weight 56.818, kg, Priority: STAT, Start date: 03/07/13 16:13:00, Stop date: 03/07/13 16:13:00 Pepcid 20 mg 20 mg, 1 tab, PO No Longer Iluonakhamhe [facility] oral tablet Route: PO, Active 2012 Medical Drug form: Center TAB, Daily, Dosing Weight 63.009, kg, Start date: 02/18/13 9:00:00, Duration: 30 day, Stop date: 03/19/13 9:00:00 Zofran 4 mg oral 4 mg, 1 tab, PO Active Esquenazi [facility] tablet PO, ONCE, 10 2012 Medical tab, Center Substitution Allowed, TAB dexamethasone 1 See Active Esquenazi [facility] mg oral tablet Instructions, Lay2012 Medical with food, 36 Center tab, Substitution Allowedwith food Pepcid 20 mg 20 mg, 1 tab, PO Active Esquenazi [facility] oral tablet PO, Daily, 50 Lay 2012 Medical tab, Center Substitution Allowed, TAB docusate sodium 100 mg, 1 cap, PO Active Esquenazi [place] 100 mg oral PO, Q12H, 50 Lay 2012 Medical capsule cap, Center Substitution Allowed, CAP acetaminophen-hy 1 tab, PO, PO Active Esquenazi [place] drocodone 325 Q4H, PRN, 50 Lay 2012 Medical mg-10 mg oral tab, Pain Center tablet Score 4-6, Substitution Allowed, Maintenance, TAB Phenergan 12.5 mg, 0.5 IVPB No Longer Esquenazi [facility] mL, Route: Active 2012 Medical IVPB, Drug Center form: INJ, Q4H, Dosing Weight 63.009, kg, PRN Nausea & Vomiting, Start date: 02/17/13 18:19:00, Duration: 30 day, Stop date: 03/19/13 18:18:00 magnesium 2 gm, 50 mL, IVPB No Longer Claudette [facility] sulfate Route: IVPB, Active 2012 Medical Drug form: [place] INJ, ONCE, Start date: 02/17/13 4:32:00, Stop date: 02/17/13 4:32:00 cefazolin 1 gm, Route: IVPB No Longer Keith [facility] IVPB, Drug Active 2012 Medical form: PDR/INJ, [place] ABXQ8H, Start date: 02/16/13 22:30:00, Duration: 1 doses or times, Stop date: 02/16/13 22:30:00 Dilaudid 0.5 mg, 0.25 IVP No Longer Shagagi [facility] mL, Route: Active 2012 Medical IVP, Drug Center form: INJ, ONCE, Dosing Weight 61.364, kg, Priority: STAT, Start date: 02/16/13 22:20:00, Stop date: 02/16/13 22:20:00 FENTanyl patch 1 patch, TOP No Longer [facility] 75 mcg/hr Route: TOP, Active 2012 Medical Drug Form: [place] ERFILM, Dosing Weight 61.364, kg, Q72H, STAT, Start date: 02/16/13 21:11:00, Duration: 30 day, Stop date: 03/15/13 21:11:00 Saline Flush 5 ml, Route: IVP No Longer Keith [facility] 0.9% IVP, Drug Active 2012 Medical Form: INJ, Center Dosing Weight 61.364, kg, Q12H, Start date: 02/16/13 21:00:00, Duration: 30 day, Stop date: 03/18/13 9:00:00 docusate 100 mg, 1 cap, PO No Longer Keith [facility] Route: PO, Active 2012 Medical Drug form: Center CAP, Q12H, Dosing Weight 61.364, kg, Start date: 02/16/13 21:00:00, Duration: 30 day, Stop date: 03/18/13 9:00:00 senna 8.6 mg, 1 tab, PO No Longer Keith [facility] Route: PO, Active 2012 Medical Drug Form: Center TAB, Dosing Weight 61.364, kg, Q12H, Start date: 02/16/13 21:00:00, Duration: 30 day, Stop date: 03/18/13 9:00:00 famotidine 20 mg, 2 mL, IVP No Longer Iluonakhamhe [facility] Route: IVP, Active 2012 Medical Drug form: Center INJ, Q12H, Dosing Weight 61.364, kg, Start date: 02/16/13 21:00:00, Duration: 30 day, Stop date: 03/18/13 9:00:00 Dilaudid 0.5 mg, Route: IV No Longer Narciso [facility] IV, ONCE, Active 2012 Medical Dosing Weight Center 61.364, kg, PRN Pain, Start date: 02/16/13 20:04:00 diphenhydrAMINE 12.5 mg, 0.25 IVP No Longer Dais [facility] mL, Route: Active 2012 Medical IVP, Drug Center form: INJ, PRN, Dosing Weight 61.364, kg, PRN Itching, Start date: 02/16/13 18:44:00, Duration: 1 day, Stop date: 02/17/13 18:43:00 flumazenil 0.2 mg, 2 mL, IVP No Longer Dais [place] Route: IVP, Active 2012 Medical Drug form: [place] INJ, PRN, Dosing Weight 61.364, kg, PRN Benzodiazepine Reversal, Initial dose, Start date: 02/16/13 18:44:00, Duration: 1 day, Stop date: 02/17/13 18:43:00 naloxone 0.04 mg, 0.1 IVP No Longer Dais [place] mL, Route: Active 2012 Medical IVP, Drug Center form: INJ, Q2MIN, Dosing Weight 61.364, kg, PRN Narcotic Reversal, Start date: 02/16/13 18:44:00, Duration: 8 doses or times, Stop date: 02/17/13 0:00:00 morphine Sulfate 2 mg, 1 mL, IVP No Longer Dais [place] Route: IVP, Active 2012 Medical Drug form: [place] INJ, Q5Min, Dosing Weight 61.364, kg, PRN Pain Score 4-6, Start date: 02/16/13 18:44:00, Duration: 5 doses or times, Stop date: 02/17/13 0:00:00 ondansetron 4 mg, 2 mL, IVP No Longer Dais [place] Route: IVP, Active 2012 Medical Drug form: [place] INJ, ONCE, Dosing Weight 61.364, kg, PRN Nausea & Vomiting, Start date: 02/16/13 18:44:00 promethazine 6.25 mg, 0.25 IVPB No Longer Dais [place] mL, Route: Active 2012 Medical IVPB, Drug Center form: INJ, ONCE, Dosing Weight 61.364, kg, PRN Nausea & Vomiting, Start date: 02/16/13 18:44:00 dexamethasone 4 mg, 1 tab, PO No Longer Keith [place] Route: PO, Active 2012 Medical Drug form: Center TAB, Q6H, Dosing Weight 61.364, kg, Start date: 02/16/13 18:00:00, Duration: 30 day, Stop date: 03/18/13 12:00:00 cefazolin (SCIP) 1 gm, Route: IVPB No Longer Keith 07/15[facility] IVPB, Drug Active 2012 Medical form: INJ, Center Q8H, Dosing Weight 61.364, kg, Start date: 02/16/13 16:00:00, Duration: 1 doses or times, Stop date: 02/16/13 16:00:00 Dextrose 50% 12.5 gm, 25 IVP No Longer Keith [facility] Syringe mL, Route: Active 2012 [facility] [place] IVP, Drug Center Form: INJ, Dosing Weight 61.364, kg, PRN, PRN Abnormal Lab Result, Start date: 02/16/13 13:35:00, Duration: 30 day, Stop date: 03/18/13 13:34:00 insulin regular 3 unit, 0.03 SUB-Q No Longer Keith [facility] 100 units/mL mL, Route: Active 2012 Medical human SUB-Q, Drug Center recombinant form: SOLN, PRN, Dosing Weight 61.364, kg, PRN Abnormal Lab Result, Start date: 02/16/13 13:35:00, Duration: 30 day, Stop date: 03/18/13 13:34:00 Saline Flush 5 ml, Route: IVP No Longer Keith [facility] 0.9% IVP, Drug Active 2012 Medical Form: INJ, Center Dosing Weight 61.364, kg, PRN, PRN Line Flush, Start date: 02/16/13 13:35:00, Duration: 30 day, Stop date: 03/18/13 13:34:00 morphine Sulfate 1 mg, 0.5 mL, IVP No Longer Keith [facility] Route: IVP, Active 2012 Medical Drug form: Center INJ, Q1H, Dosing Weight 61.364, kg, PRN Pain Score 7-10, Start date: 02/16/13 13:35:00, Duration: 30 day, Stop date: 03/18/13 13:34:00 acetaminophen-hy 2 tab, Route: PO No Longer Keith [facility] drocodone 325 PO, Drug Form: Active 2012 Medical mg-10 mg oral TAB, Dosing Center tablet Weight 61.364, kg, Q4H, PRN Pain Score 7-10, Start date: 02/16/13 13:35:00, Duration: 30 day, Stop date: 03/18/13 13:34:00 dexamethasone 10 mg, 2.5 mL, IVP No Longer Keith [facility] Route: IVP, Active 2012 Medical Drug form: [place] INJ, ONCE, Dosing Weight 61.364, kg, Start date: 02/16/13 13:35:00, Stop date: 02/16/13 13:35:00 bisacodyl 10 mg, 1 supp, [place] No Longer [facility] Route: CT, Active 2012 Medical Drug form: [place] SUPP, Daily, Dosing Weight 61.364, kg, PRN Constipation, Start date: 02/16/13 13:35:00, Duration: 30 day, Stop date: 03/18/13 13:34:00 Sodium Chloride 1,000 mL, IV No Longer [facility] [place] 0.9% IV 1,000 mL Rate: 50 Active 2012 Medical ml/hr, Infuse Center over: 20 hr, Route: IV, Dosing Weight 61.364 kg, Total Volume: 1,000, Start date: 02/16/13 13:35:00, Duration: 30 day, Stop date: 03/18/13 13:34:00 Sodium Chloride 250 mL, Rate: IV No Longer Keith [place] 0.9% (Bolus) IV 500 ml/hr, Active 2012 Medical 250 mL Infuse over: Center 30 minutes, Route: IV, Dosing Weight 61.364 kg, Total Volume: 250, Priority: STAT, Start date: 02/16/13 13:35:00, Duration: 1 doses or times, Stop date: 02/16/13 14:04:00 HYDROcodone-ibup 1 tab, PO, PO Active Cait rofen 7.5 mg-200 Q4H, PRN, for 2013 Medical mg oral tablet pain, Center Substitution Allowed, Maintenance, TAB Xanax 0.5 mg 0.5 mg, 1 tab, PO No Longer Claudette Cait oral tablet Route: PO, Active 2012 Medical Drug form: [place] TAB, PRE OP, Dosing Weight 61.364, kg, Start date: 02/16/13 11:00:00, Duration: 1 doses or times, Stop date: 02/17/13 0:00:00 cefazolin 2 gm, 50 mL, IVPB No Longer Claudette [place] Route: IVPB, Active 2012 Medical Drug form: Center INJ, PRE OP, Start date: 02/16/13 3:00:00, Duration: 1 day, Stop date: 02/17/13 2:59:00 Allergies, Adverse Reactions, Alerts Substance Category Reaction Severity Reaction Status Date Comments Source type Reported Esoterica Assertion Propensity Active Mischer with to adverse Neuro Sunscreen reactions to substance Immunizations No Data Provided for This Section Results Order Name Results Value Reference Date Interpretation Comments Source Range URINE AND UA Leuk Est Moderate Negative 11/28 [facility] *ABN* [facility] (11/29/15 3:49 AM) [place] URINE AND UA WBC 54 0 - 5 11/28 [facility] URINE AND UA Bacteria Occasional None Seen 11/28 [facility] /HPF /HPF /2015 [facility] URINE AND UA <=1.0 0.1 - 1.0 11/28 [facility] Urobilinogen mg/dL [facility] URINE AND UA Mucus Moderate None Seen 11/28 [facility] /LPF /LPF [facility] URINE AND UA Sq Epi None Seen 11/28 [facility] URINE AND UA Color Yellow Yellow 11/28 [facility] *NA* [facility] (11/29/15 3:49 AM) [place] URINE AND UA Turbidity Clear Clear 11/28 [facility] (11/29/15 3:49 AM) /2015 [facility] URINE AND UA Spec Grav 1.019 <=1.030 11/28 [facility] URINE AND UA Protein 20 mg/dL Negative 11/28 [facility] mg/dL [facility] URINE AND UA pH 6.0 5.0 - 8.0 11/28 [facility] URINE AND UA Glucose Negative Negative 11/28 [facility] mg/dL mg/dL [facility] URINE AND UA Ketones Negative Negative 11/28 [facility] mg/dL mg/dL [facility] URINE AND UA Bili Negative Negative 11/28 [facility] *NA* [facility] (11/29/15 3:49 AM) [place] URINE AND UA Blood Trace Negative 11/28 [facility] *ABN* [facility] (11/29/15 3:49 AM) [place] URINE AND UA Nitrite Negative Negative 11/28 [facility] (11/29/15 3:49 AM) /2015 [facility] URINE AND UA RBC 3 0 - 2 11/28 [facility] STOOL /2015 [facility] BLOOD BANK Antibody Scrn Negative 11/28 [facility] RESULTS (11/29/15 1:53 AM) [facility] BLOOD BANK ABO/Rh O POS 11/28 [facility] RESULTS [facility] ELECTROLYTE AGAP 10.8 10.0 - 11/28 [facility] S 20.0 [facility] ELECTROLYTE eGFR 122 11/28 Result [facility] Comment: The [facility] eGFR is Center calculated using the CKD-EPI formula. In most young, healthy individuals the eGFR will be >90 mL/min/1.73m2 . The eGFR declines with age. An eGFR of 60-89 may be normal in some populations, particularly the elderly, for whom the CKD-EPI formula has not been extensively validated. Use of the eGFR is not recommended in the following populations:< br/>
Gerri viduals with unstable creatinine concentration s, including patients and those with serious co-morbid conditions.<b r/>
Patie nts with extremes in muscle mass or diet.

The data above are obtained from the National Kidney Disease Education Program (NKDEP) which additionally recommends that when the eGFR is used in patients with extremes of body mass index for purposes of drug dosing, the eGFR should be multiplied by the estimated BMI. ELECTROLYTE Chloride Lvl 111 95 - 109 11/28 [facility] S [facility] ELECTROLYTE CO2 24 24 - 32 11/28 [facility] ELECTROLYTE Calcium Lvl 9.1 8.5 - 10.5 11/28 [facility] S [facility] ELECTROLYTE Glucose Lvl 110 70 - 99 11/28 [facility] S [facility] ELECTROLYTE Sodium Lvl 142 135 - 145 11/28 [facility] S /2015 [facility] ELECTROLYTE Creatinine 0.55 0.50 - 11/28 [facility] S Lvl 1.40 [facility] ELECTROLYTE BUN 14 7 - 22 11/28 [facility] S [facility] ELECTROLYTE Potassium Lvl 3.8 3.5 - 5.1 11/28 [facility] S /2015 [facility] HEMATOLOGY INR 1.02 0.85 - 11/28 [facility] 1.17 [facility] HEMATOLOGY PTT 29.1 22.9 - 11/28 [facility] 35.8 /2015 [facility] HEMATOLOGY PT 13.7 12.0 - 11/28 14.7 [facility] HEMATOLOGY RDW 13.2 11.5 - 11/28 14.5 [facility] HEMATOLOGY MCH 31.7 27.0 - 11/28 [place] 31.0 [facility] HEMATOLOGY Hct 37.6 36.0 - 11/28 48.0 /2015 [facility] HEMATOLOGY MCV 94.4 80.0 - 11/28 98.0 [facility] HEMATOLOGY Hgb 12.6 12.0 - 11/28 [place] 16.0 /2015 [facility] HEMATOLOGY MCHC 33.5 32.0 - 11/28 [place] 36.0 [facility] HEMATOLOGY Platelet 212 133 - 450 11/28 [facility] HEMATOLOGY MPV 10.8 7.4 - 10.4 11/28 [facility] HEMATOLOGY WBC 9.1 3.7 - 10.4 11/28 [facility] HEMATOLOGY RBC 3.98 4.20 - 11/28 [place] 5.40 [facility] HEMATOLOGY Basophils # 0.1 0.0 - 0.2 11/28 [facility] HEMATOLOGY Monocytes # 0.7 0.0 - 0.8 11/28 [facility] HEMATOLOGY Lymphocytes 15.5 20.0 - 11/28 [place] 40.0 [facility] HEMATOLOGY Lymphocytes # 1.4 1.0 - 5.5 11/28 [facility] HEMATOLOGY Segs-Bands # 7.0 1.5 - 8.1 11/28 [facility] HEMATOLOGY Eosinophils 0.1 0.0 - 4.0 11/28 [facility] HEMATOLOGY Basophils 0.6 0.0 - 1.0 11/28 [facility] HEMATOLOGY Monocytes 7.2 2.0 - 12.0 11/28 [facility] HEMATOLOGY Segs 76.6 45.0 - 11/28 75.0 [facility] CHEMISTRY eGFR 120 03/10 NA <sup>1</sup>R esult Medical Comment: The Center eGFR is calculated using the CKD-EPI formula. In most young, healthy individuals the eGFR will be >90 mL/min/1.73m2 . The eGFR declines with age. An eGFR of 60-89 may be normal in some populations, particularly the elderly, for whom the CKD-EPI formula has not been extensively validated. Use of the eGFR is not recommended in the following populations:& lt;br/>
I ndividuals with unstable creatinine concentration s, including patients and those with serious co-morbid conditions.<b r/>
Patie nts with extremes in muscle mass or diet.

The data above are obtained from the National Kidney Disease Education Program (NKDEP) which additionally recommends that when the eGFR is used in patients with extremes of body mass index for purposes of drug dosing, the eGFR should be multiplied by the estimated BMI. CHEMISTRY Chloride Lvl 106 95 - 109 03/10 Normal [facility] CHEMISTRY Calcium Lvl 8.8 8.5 - 10.5 03/10 Normal [facility] CHEMISTRY CO2 29 24 - 32 03/10 Normal [facility] CHEMISTRY AGAP 10.2 10.0 - 03/10 [facility] 20.0 [facility] CHEMISTRY BUN 7 7 - 22 03/10 Normal [facility] CHEMISTRY Creatinine 0.6 0.5 - 1.4 03/10 Normal [facility] CHEMISTRY Sodium Lvl 141 135 - 145 03/10 Normal [facility] CHEMISTRY Potassium Lvl 4.2 3.5 - 5.1 03/10 Normal [facility] CHEMISTRY Glucose Lvl 107 70 - 99 03/10 [place] <sup>3</sup>I nterpretive Medical Data: Adult Center reference range values reflect the clinical guidelines
of the [place] [employer]. Microbiolog Culture: AFB 03/09 [facility] y w/Smear /2012 [facility] Microbiolog Culture: 03/09 [facility] y Wound/Abscess /2012 [facility] w/Gram Stain Center Microbiolog Culture: 03/09 [facility] y Anaerobic [facility] Center Microbiolog Culture: 03/09 [facility] y Fungal [facility] w/Smear Center CHEMISTRY U Preg Negative Negative 03/09 Normal [facility] (03/09/2013 08:40:35) [facility] Center BLOOD BANK ABO/Rh O POS 03/09 Unknown [facility] RESULTS [facility] BLOOD BANK Antibody Scrn Negative 03/09 Normal [facility] RESULTS (03/09/2013 08:40:00) [facility] Center CHEMISTRY Vanco Tr 6.0 03/09 NA <sup>5</sup>I nterpretive Medical Data: Center Therapeutic Range:
Trough: 10 - 20 ug/mL
Peak: 20 - 40 ug/mL
Potential Toxicity: >80 ug/mL CHEMISTRY Vanco Tr TND 0845 03/09 [facility] Center Microbiolog Culture: 03/09 [facility] y Wound/Abscess Medical w/Gram Stain Center HEMATOLOGY INR 0.97 0.85 - 08 Normal <sup>6</sup>I [facility] 1.17 nterpretive Medical Data: Center RECOMMENDED RANGES FOR PROTIME INR:
2.0-3.0 for most medical and surgical thromboemboli c states.
2.5-3.5 for artificial heart valves and recurrent embolism.<br/ >
INR SHOULD BE USED ONLY FOR PATIENTS ON STABLE ANTICOAGULANT THERAPY. HEMATOLOGY PT 13.1 12.0 - 03/08 Normal [facility] 14.7 [facility] Center HEMATOLOGY PTT 32.0 22.9 - 03/08 Normal <sup>7</sup>I [facility] 35.8 nterpretive Medical Data: Heparin Center Therapeutic Range: 57 - 92 Seconds IMMUNOLOGY CDC-HIV 1/2 Negative Negative 03/07 [facility] Ab *NA* Medical (03/07/2013 15:54:24) Center CHEMISTRY eGFR 97 03/07 NA <sup>2</sup>R esult Medical Comment: The Center eGFR is calculated using the CKD-EPI formula. In most young, healthy individuals the eGFR will be >90 mL/min/1.73m2 . The eGFR declines with age. An eGFR of 60-89 may be normal in some populations, particularly the elderly, for whom the CKD-EPI formula has not been extensively validated. Use of the eGFR is not recommended in the following populations:& lt;br/>
I ndividuals with unstable creatinine concentration s, including patients and those with serious co-morbid conditions.<b r/>
Patie nts with extremes in muscle mass or diet.

The data above are obtained from the National Kidney Disease Education Program (NKDEP) which additionally recommends that when the eGFR is used in patients with extremes of body mass index for purposes of drug dosing, the eGFR should be multiplied by the estimated BMI. CHEMISTRY Calcium Lvl 8.7 8.5 - 10.5 08/ Normal [facility] CHEMISTRY CO2 28 24 - 32 08 Normal [facility] Center CHEMISTRY Creatinine 0.8 0.5 - 1.4 03/07 Normal [facility] Lvl /2012 [facility] Center CHEMISTRY Glucose Lvl 112 70 - 99 08 [place] <sup>4</sup>I nterpretive Medical Data: Adult Center reference range values reflect the clinical guidelines
of the [place] [employer]. CHEMISTRY BUN 11 7 - 22 03/07 Normal [facility] CHEMISTRY Sodium Lvl 138 135 - 145 08 Normal [facility] Center CHEMISTRY Potassium Lvl 4.3 3.5 - 5.1 03/07 Normal [facility] Center CHEMISTRY Chloride Lvl 102 95 - 109 03/07 Normal [facility] CHEMISTRY AGAP 12.3 10.0 - 08 Normal [facility] 20.0 /2012 [facility] HEMATOLOGY MPV 8.6 7.4 - 10.4 08 Normal [facility] HEMATOLOGY Platelet 230 133 - 450 08 Normal [facility] HEMATOLOGY RDW 12.5 11.5 - 08/ Normal [place] 14.5 /2012 [facility] HEMATOLOGY MCHC 33.7 32.0 - 08/ Normal [place] 36.0 /2012 [facility] Center HEMATOLOGY WBC 8.1 3.7 - 10.4 08 Normal Medical Center HEMATOLOGY MCH 31.3 27.0 - 08/03 HI [place] 31.0 /2012 Medical Center HEMATOLOGY MCV 92.9 81.0 - 08/03 Normal [place] 99.0 /2012 Medical Center HEMATOLOGY Hct 32.8 36.0 - 08/ LOW [place] 48.0 /2012 [facility] HEMATOLOGY Hgb 11.1 12.0 - 08/ LOW [place] 16.0 /2012 [facility] Center HEMATOLOGY RBC 3.53 4.20 - 08/03 LOW [place] 5.40 /2012 Medical Center HEMATOLOGY Segs 68.4 45.0 - 08/03 Normal [place] 75.0 /2013 Medical Center HEMATOLOGY Basophils 0.5 0.0 - 1.0 08/ Normal [facility] HEMATOLOGY Eosinophils 2.0 0.0 - 4.0 08/ Normal [facility] HEMATOLOGY Monocytes 8.8 2.0 - 12.0 08/ Normal [facility] HEMATOLOGY Lymphocytes 20.3 20.0 - 08 Normal [place] 40.0 /2012 [facility] HEMATOLOGY Basophils # 0.0 0.0 - 0.2 08/ Normal [facility] HEMATOLOGY Eosinophils # 0.2 0.0 - 0.5 03/07 Normal [facility] HEMATOLOGY Monocytes # 0.7 0.0 - 0.8 / Normal [facility] HEMATOLOGY Lymphocytes # 1.6 1.0 - 5.5 03/07 Normal [facility] HEMATOLOGY Segs-Bands # 5.6 1.5 - 8.1 03/07 Normal [facility] BEDSIDE Comment1 Notify 02/18 NA [facility] GLUCOSE RN/ /2012 Medical TESTING Center BEDSIDE Gluc POC 202 70 - 99 02/18 [place] <sup>1</sup>I [facility] GLUCOSE Lifscn nterpretive Medical TESTING Data: Center Upper Reportable Limit: 200 mg/dL. CHEMISTRY Ca Norm mgdL 4.76 4.65 - 02/18 Normal [facility] . [facility] CHEMISTRY Ca Ion mgdL 4.76 4.65 - 02/18 Normal [facility] . [facility] CHEMISTRY Ca Norm 1.19 1.16 - 02/18 Normal [facility] . [facility] CHEMISTRY Ca Ion 1.19 1.16 - 02/18 Normal [facility] . [facility] CHEMISTRY Calcium Lvl 8.4 8.5 - 10.5 02/18 LOW [facility] CHEMISTRY CO2 26 24 - 32 02/18 Normal [facility] CHEMISTRY Chloride Lvl 107 95 - 109 02/18 Normal [facility] CHEMISTRY Potassium Lvl 4.5 3.5 - 5.1 02/18 Normal [facility] CHEMISTRY Sodium Lvl 142 135 - 145 02/18 Normal [facility] CHEMISTRY Glucose Lvl 197 70 - 99 02/18 [place] <sup>7</sup>I nterpretive Medical Data: Adult Center reference range values reflect the clinical guidelines
of the [place] [employer]. CHEMISTRY Creatinine 0.7 0.5 - 1.4 02/18 Normal [facility] Lvl [facility] CHEMISTRY BUN 14 7 - 22 02/18 Normal [facility] CHEMISTRY eGFR 114 02/18 NA <sup>4</sup>R esult Medical Comment: The Center eGFR is calculated using the CKD-EPI formula. In most young, healthy individuals the eGFR will be >90 mL/min/1.73m2 . The eGFR declines with age. An eGFR of 60-89 may be normal in some populations, particularly the elderly, for whom the CKD-EPI formula has not been extensively validated. Use of the eGFR is not recommended in the following populations:& lt;br/>
I ndividuals with unstable creatinine concentration s, including patients and those with serious co-morbid conditions.<b r/>
Patie nts with extremes in muscle mass or diet.

The data above are obtained from the National Kidney Disease Education Program (NKDEP) which additionally recommends that when the eGFR is used in patients with extremes of body mass index for purposes of drug dosing, the eGFR should be multiplied by the estimated BMI. CHEMISTRY AGAP 13.5 10.0 - 02/18 Normal [facility] 20.0 [facility] CHEMISTRY Magnesium Lvl 2.1 1.8 - 2.4 02/18 Normal [facility] CHEMISTRY Phosphorus 2.5 2.5 - 4.5 02/18 [facility] HEMATOLOGY Monocytes 6.5 2.0 - 12.0 02/18 Normal [facility] HEMATOLOGY Segs-Bands # 10.7 1.5 - 8.1 02/18 [facility] HEMATOLOGY Basophils 0.2 0.0 - 1.0 02/18 Normal [facility] HEMATOLOGY Segs 85.8 45.0 - 02/18 [facility] [place] 75.0 /2012 [facility] HEMATOLOGY Lymphocytes 7.5 20.0 - 07 LOW [place] 40.0 /2012 [facility] HEMATOLOGY Monocytes # 0.8 0.0 - 0.8 02/18 [facility] HEMATOLOGY Lymphocytes # 0.9 1.0 - 5.5 02/18 LOW [facility] HEMATOLOGY MCHC 32.6 32.0 - 02/18 Normal [place] 36.0 /2012 Medical Center HEMATOLOGY RDW 13.1 11.5 - 02/18 Normal [place] 14.5 /2012 [facility] HEMATOLOGY MPV 9.8 7.4 - 10.4 02/18 Normal [facility] HEMATOLOGY Platelet 229 133 - 450 02/18 Normal [facility] HEMATOLOGY MCV 95.5 81.0 - 02/18 Normal [facility] 99.0 /2012 Medical Center HEMATOLOGY Hct 33.0 36.0 - 07 LOW [place] 48.0 /2012 Medical Center HEMATOLOGY MCH 31.1 27.0 - 02/18 HI [place] 31.0 /2012 [facility] Center HEMATOLOGY Hgb 10.8 12.0 - 07 LOW [place] 16.0 /2012 [facility] HEMATOLOGY RBC 3.46 4.20 - 02/18 LOW [place] 5.40 /2012 Medical Center HEMATOLOGY WBC 12.5 3.7 - 10.4 02/18 [facility] BEDSIDE Comment1 Notify 02/17 NA [facility] GLUCOSE RN/ /2012 Medical TESTING Center BEDSIDE Gluc POC 185 70 - 99 02/17 [place] <sup>2</sup>I [facility] GLUCOSE nv nterpretive Medical TESTING Data: Center Upper Reportable Limit: 200 mg/dL. BEDSIDE Gluc POC 130 70 - 99 02/17 [place] <sup>3</sup>I [facility] GLUCOSE nv nterpretive Medical TESTING Data: Center Upper Reportable Limit: 200 mg/dL. BEDSIDE Comment1 Notify 02/17 NA [facility] GLUCOSE DOV/ /2012 [facility] TESTING Center CHEMISTRY Phosphorus 3.4 2.5 - 4.5 02/17 Normal [facility] CHEMISTRY Magnesium Lvl 1.9 1.8 - 2.4 02/17 Normal [facility] CHEMISTRY AGAP 16.3 10.0 - 02/17 Normal [facility] 20.0 [facility] CHEMISTRY Creatinine 0.6 0.5 - 1.4 02/17 Normal [facility] CHEMISTRY BUN 9 7 - 22 02/17 Normal [facility] CHEMISTRY Glucose Lvl 112 70 - 99 02/17 [place] <sup>8</sup>I nterpretive Medical Data: Adult Center reference range values reflect the clinical guidelines
of the [place] [employer]. CHEMISTRY Chloride Lvl 110 95 - 109 02/17 HI [facility] CHEMISTRY Potassium Lvl 4.3 3.5 - 5.1 02/17 Normal [facility] CHEMISTRY Sodium Lvl 142 135 - 145 02/17 Normal [facility] CHEMISTRY Calcium Lvl 8.3 8.5 - 10.5 02/17 LOW [facility] CHEMISTRY CO2 20 24 - 32 02/17 LOW [facility] CHEMISTRY eGFR 120 02/17 NA <sup>5</sup>R [facility] Comment: The Center eGFR is calculated using the CKD-EPI formula. In most young, healthy individuals the eGFR will be >90 mL/min/1.73m2 . The eGFR declines with age. An eGFR of 60-89 may be normal in some populations, particularly the elderly, for whom the CKD-EPI formula has not been extensively validated. Use of the eGFR is not recommended in the following populations:& lt;br/>
I ndividuals with unstable creatinine concentration s, including patients and those with serious co-morbid conditions.<b r/>
Patie nts with extremes in muscle mass or diet.

The data above are obtained from the National Kidney Disease Education Program (NKDEP) which additionally recommends that when the eGFR is used in patients with extremes of body mass index for purposes of drug dosing, the eGFR should be multiplied by the estimated BMI. CHEMISTRY Ca Norm mgdL 4.76 4.65 - 02/17 Normal [facility] 12.22 [facility] CHEMISTRY Ca Norm 1.19 1.16 - 02/17 Normal [facility] 09.03 [facility] CHEMISTRY Ca Ion mgdL 4.76 4.65 - 02/17 Normal [facility] 12.22 [facility] CHEMISTRY Ca Ion 1.19 1.16 - 02/17 Normal [facility] 09.03 [facility] CHEMISTRY eGFR 97 02/17 NA <sup>6</sup>R [facility] Medical Comment: The Center eGFR is calculated using the CKD-EPI formula. In most young, healthy individuals the eGFR will be >90 mL/min/1.73m2 . The eGFR declines with age. An eGFR of 60-89 may be normal in some populations, particularly the elderly, for whom the CKD-EPI formula has not been extensively validated. Use of the eGFR is not recommended in the following populations:& lt;br/>
I ndividuals with unstable creatinine concentration s, including patients and those with serious co-morbid conditions.<b r/>
Patie nts with extremes in muscle mass or diet.

The data above are obtained from the National Kidney Disease Education Program (NKDEP) which additionally recommends that when the eGFR is used in patients with extremes of body mass index for purposes of drug dosing, the eGFR should be multiplied by the estimated BMI. CHEMISTRY Potassium Lvl 3.9 3.5 - 5.1 02/17 [facility] CHEMISTRY Chloride Lvl 114 95 - 109 02/17 [facility] CHEMISTRY Sodium Lvl 145 135 - 145 02/17 [facility] CHEMISTRY Creatinine 0.8 0.5 - 1.4 02/17 [facility] CHEMISTRY BUN 9 7 - 22 02/17 [facility] CHEMISTRY Calcium Lvl 8.0 8.5 - 10.5 02/17 [facility] CHEMISTRY CO2 23 24 - 32 02/17 [facility] CHEMISTRY Glucose Lvl 108 70 - 99 02/17 [place] <sup>9</sup>I nterpretive Medical Data: Adult Center reference range values reflect the clinical guidelines
of the [place] [employer]. CHEMISTRY AGAP 11.9 10.0 - 02/17 [facility] 20.0 /2012 [facility] HEMATOLOGY Segs 89.9 45.0 - 02/17 [facility] 75.0 /2012 [facility] HEMATOLOGY Lymphocytes 8.6 20.0 - 02/17 [facility] 40.0 /2013 [facility] HEMATOLOGY Basophils 0.3 0.0 - 1.0 02/17 [facility] HEMATOLOGY Segs-Bands # 6.2 1.5 - 8.1 02/17 [facility] HEMATOLOGY Lymphocytes # 0.6 1.0 - 5.5 02/17 [facility] HEMATOLOGY Eosinophils 0.1 0.0 - 4.0 02/17 [facility] HEMATOLOGY Monocytes 1.1 2.0 - 12.0 02/17 LOW [place] /2012 [facility] HEMATOLOGY Monocytes # 0.1 0.0 - 0.8 02/17 Normal /2012 [facility] HEMATOLOGY Hct 34.3 36.0 - 07 LOW [place] 48.0 /2012 [facility] HEMATOLOGY MCV 95.7 81.0 - 07 Normal [place] 99.0 /2012 [facility] HEMATOLOGY WBC 6.9 3.7 - 10.4 02/17 Normal /2012 [facility] HEMATOLOGY RDW 13.0 11.5 - 07 Normal [place] 14.5 /2012 [facility] HEMATOLOGY MCHC 33.3 32.0 - 07 Normal [place] 36.0 /2012 [facility] HEMATOLOGY Platelet 232 133 - 450 02/17 Normal /2012 [facility] HEMATOLOGY MCH 31.9 27.0 - 07 [facility] [place] 31.0 /2012 [facility] HEMATOLOGY RBC 3.59 4.20 - 02/17 [facility] [place] 5.40 /2012 [facility] HEMATOLOGY Hgb 11.4 12.0 - 07 [facility] [place] 16.0 /2012 [facility] HEMATOLOGY MPV 9.1 7.4 - 10.4 02/17 Normal /2012 [facility] HEMATOLOGY PTT 33.5 22.9 - 02/17 Normal <sup>12</sup> [facility] 35.8 /2012 Interpretive Medical Data: Heparin Center Therapeutic Range: 57 - 92 Seconds HEMATOLOGY INR 1.14 0.85 - 02/17 Normal <sup>10</sup> [facility] 1.17 Interpretive Medical Data: Center RECOMMENDED RANGES FOR PROTIME INR:
2.0-3.0 for most medical and surgical thromboemboli c states.
2.5-3.5 for artificial heart valves and recurrent embolism.<br/ >
INR SHOULD BE USED ONLY FOR PATIENTS ON STABLE ANTICOAGULANT THERAPY. HEMATOLOGY PT 14.8 12.0 - 02/17 [facility] [place] 14.7 /2012 [facility] BLOOD BANK Antibody Scrn Negative 02/16 Normal [facility] RESULTS (02/16/2013 10:25:29) /2012 [facility] Center BLOOD BANK ABO/Rh O POS 02/16 Unknown [place] RESULTS /2012 [facility] HEMATOLOGY Lymphocytes 44.8 20.0 - 07 [facility] [place] 40.0 /2012 Medical Center HEMATOLOGY Segs 36.8 45.0 - 07/ LOW [place] 75.0 /2013 [facility] HEMATOLOGY Eosinophils 4.9 0.0 - 4.0 07/ HI [facility] HEMATOLOGY Monocytes 12.1 2.0 - 12.0 07/ HI [facility] HEMATOLOGY Basophils 1.4 0.0 - 1.0 07/ HI [facility] HEMATOLOGY Lymphocytes # 2.3 1.0 - 5.5 07/ Normal [facility] HEMATOLOGY Segs-Bands # 1.8 1.5 - 8.1 07/ Normal [facility] HEMATOLOGY Monocytes # 0.6 0.0 - 0.8 07/ Normal [facility] HEMATOLOGY Eosinophils # 0.2 0.0 - 0.5 07/ Normal [facility] HEMATOLOGY Basophils # 0.1 0.0 - 0.2 07/ Normal [facility] HEMATOLOGY PTT 32.5 22.9 - 07 Normal <sup>13</sup> [facility] 35.8 /2012 Interpretive Medical Data: Heparin Center Therapeutic Range: 57 - 92 Seconds HEMATOLOGY PT 14.2 12.0 - 07 Normal [facility] 14.7 [facility] HEMATOLOGY INR 1.08 0.85 - 07 Normal <sup>11</sup> [facility] 1.17 /2012 Interpretive Medical Data: Center RECOMMENDED RANGES FOR PROTIME INR:
2.0-3.0 for most medical and surgical thromboemboli c states.
2.5-3.5 for artificial heart valves and recurrent embolism.<br/ >
INR SHOULD BE USED ONLY FOR PATIENTS ON STABLE ANTICOAGULANT THERAPY. HEMATOLOGY MCHC 33.3 32.0 - 0710 Normal [place] 36.0 /2012 [facility] HEMATOLOGY MPV 9.4 7.4 - 10.4 07/ Normal [facility] HEMATOLOGY RDW 12.8 11.5 - 0710 Normal [facility] 14.5 [facility] HEMATOLOGY Platelet 232 133 - 450 07/ Normal [facility] HEMATOLOGY WBC 5.0 3.7 - 10.4 07 Normal [facility] HEMATOLOGY Hct 36.4 36.0 - 0710 Normal [place] 48.0 /2012 [facility] HEMATOLOGY MCV 94.7 81.0 - 07/10 Normal [facility] 99.0 /2013 [facility] HEMATOLOGY MCH 31.5 27.0 - 07/10 HI [facility] 31.0 /2012 [facility] HEMATOLOGY Hgb 12.1 12.0 - 07/10 Normal [facility] 16.0 /2013 [facility] HEMATOLOGY RBC 3.85 4.20 - 07/10 LOW [facility] 5.40 /2013 [facility] Pathology Reports No Data Provided for This Section Diagnostic Reports Report Value Date Source Spine lumbar wo EXAM: MRI LUMBAR SPINE WITHOUT CONTRAST 11/29/2015 [facility] contrast MRI DATE: 11/29/2015 1:15 AM [facility] INDICATION: Backache COMPARISON: CT L-spine 11/29/2015 TECHNIQUE: [...] No spinal canal or foraminal stenosis. Spine lumbar wo EXAM: CT LUMBAR SPINE WITHOUT CONTRAST 11/29/2015 [facility] contrast CT DATE: 11/29/2015 212 AM [facility] INDICATION: 35 years old Female patient with [...] significant spinal canal or neural foraminal stenosis. Spine cervical wo 03/07/2013 [facility] EXAMINATION: SPINE CERVICAL CT DATE: 03/07/2013 at 1654 hours INDICATION: S/p [...] discharge. The patient's posterior neck and lateral c ervical area are extremely tender to superficial touch. [...] the level of the C1 arch. Spine cervical w EXAMINATION: SPINE CERVICAL CT 03/07/2013 [facility] [place] DATE: 03/07/2013 at 1654 hours INDICATION: S/p [...] discharge. The patient's posterior neck and lateral c ervical area are extremely tender to superficial touch. 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 Brain w/wo contrast EXAMINATION: CT HEAD WITHOUT CONTRAST 03/07/[address] [facility] DATE: 03/07/2013 at 1651 hours INDICATION: S/p Chiari decompression with incisional [...] is no epidural or subdural skull empyema. Consultation Notes No Data Provided for This Section Discharge Summaries No Data Provided for This Section History and Physicals No Data Provided for This Section Vital Signs Vital Sign Value Date Comments Source Systolic (mm Hg) 99 11/29/2015 [facility] Diastolic (mm Hg) 53 11/29/2015 [facility] Temperature Oral (F) 97.2 F 11/29/2015 [facility] Respitory Rate 18 11/29/2015 [facility] Heart Rate 53 11/29/2015 [facility] Systolic (mm Hg) 99 11/29/2015 [facility] Diastolic (mm Hg) 63 11/29/2015 [facility] Systolic (mm Hg) 94 11/29/2015 [facility] Diastolic (mm Hg) 53 11/29/2015 [facility] Respitory Rate 18 11/29/2015 [facility] Heart Rate 51 11/29/2015 [facility] Temperature Oral (F) 97.6 F 11/29/2015 [facility] Temperature Oral (F) 97 F 11/29/2015 [facility] Heart Rate 52 11/29/2015 [facility] Respitory Rate 18 11/29/2015 [facility] Weight 63.636 11/29/2015 [facility] BMI Calculated 20.13 11/29/2015 [facility] Height 177.8 cm 11/29/2015 [facility] Heart Rate 58 03/10/2013 [facility] Temperature Oral (F) 97.8 F 03/10/2013 [facility] Respitory Rate 16 03/10/2013 [facility] Diastolic (mm Hg) 65 03/10/2013 [facility] Center Systolic (mm Hg) 104 03/10/2013 [facility] Heart Rate 47 03/10/2013 [facility] Respitory Rate 16 03/10/2013 [facility] Temperature Oral (F) 97.9 F 03/10/2013 [facility] Diastolic (mm Hg) 66 03/10/2013 [facility] Systolic (mm Hg) 100 03/10/2013 [facility] Respitory Rate 16 03/10/2013 [facility] Heart Rate 92 03/10/2013 [facility] Temperature Oral (F) 98.1 F 03/10/2013 [facility] Diastolic (mm Hg) 69 03/10/2013 [facility] Systolic (mm Hg) 103 03/10/2013 [facility] Weight 56 03/09/2013 [facility] Height 177.8 cm 03/09/2013 [facility] Weight 56 03/07/2013 [facility] Weight 56.818 03/07/2013 [facility] Height 177.8 cm 03/07/2013 [facility] Systolic (mm Hg) 96 02/18/2013 [facility] Diastolic (mm Hg) 49 02/18/2013 [facility] Respitory Rate 18 02/18/2013 [facility] Heart Rate 60 02/18/2013 [facility] Temperature Oral (F) 97.6 F 02/18/2013 [facility] Diastolic (mm Hg) 63 02/18/2013 [facility] Systolic (mm Hg) 102 02/18/2013 [facility] Respitory Rate 18 02/18/2013 [facility] Heart Rate 53 02/18/2013 [facility] Temperature Oral (F) 97.6 F 02/18/2013 [facility] Systolic (mm Hg) 99 02/18/2013 [facility] Diastolic (mm Hg) 56 02/18/2013 [facility] Respitory Rate 18 02/18/2013 [facility] Heart Rate 58 02/18/2013 [facility] Temperature Oral (F) 98.0 F 02/18/2013 [facility] Weight 63.009 02/17/2013 [facility] Height 177.8 cm 02/17/2013 [facility] Height 162.4 cm 02/17/2013 [facility] Weight 61.364 02/17/2013 [facility] Height 177.8 cm 02/11/2013 [facility] Weight 61.364 02/11/2013 [facility] Encounters Location Location Encounter Encounter Reason Attending ADM DC Status Source Details Type Number For Provider Date Date Visit [facility] Inpatient [id number] KASSIE VARGAS 02/16 02/18 Discharg [facility] ed Medical Center Center [facility] Inpatient [id number] INCISION KASSIE VARGAS 03/09 03/10 Active [facility] 2 Medical Center PAIN,PUR Center ULENT DISCHARG E FROM WOUND Outpatient [id number] KASSIE VARGAS 08/30 [facility] Outpatient [id number] KASSIE VARGAS 10/17 [facility] OBS [id number] [place] 11/28 11/28 [facility] Observation [facility] Patient Center Outpatient [id number] ADOLFO 12/17 [facility] Adán MNA Outside [id number] 05/05 05/07 [facility] Neuro [place] Records [facility] Outpatient [id number] NIKOLAY VARGAS Cancel [address] [facility] PER [facility]NER [id number]* * Procedures Procedure Code Date Perfomer Comments Source Appendectomy [id number] [facility] Augmentation [id number] [facility] Craniectomy<sup>1< [id number] Chiari [facility] [place]sup> Malformation [facility] Knee joint [id number] [facility] operation [facility] Oophorectomy [id number] [facility] Tubal ligation [id number] [facility] Craniectomy [id number] 1Chiari [facility] <sup>1</sup> [facility] Assessment and Plan No Data Provided for This Section Plan of Care No Data Provided for This Section Social History Social History Date Source Social History TypeResponse 11/29/2015 [facility] Neuro Substance Abuse Use: None. Alcohol Never Smoking Status Former smoker; Type: Cigarettes; Exposure to Tobacco Smoke Unable to obtain; Cigarette Smoking Last 365 Days Yes; Reg Smoking Cessation Counseling No entered on: 12/17/17 Social History TypeResponse 11/29/2015 [facility] Substance Abuse Use: None. Alcohol Never Smoking Status Current every day smoker; Tobacco use per day: 1; Exposure to Tobacco Smoke None; Cigarette Smoking Last 365 Days No; Reg Smoking Cessation Counseling No Family History No Data Provided for This Section Advance Directives No Data Provided for This Section Functional Status No Data Provided for This Section
--- OUTSIDE RECORDS SUMMARY | 2019-04-15 16:11 | XMS REPORT | CCD ---
:1980 Author Organization [facility] Care Team Providers Name Role Phone Pedro [...] 30 mL, Route: IV, 03/09/2013 03/10/2013 Discontinued BEARINGIZER (15mg/30 mL) 15 mg BEARINGIZER Dose: 0.2 mg, BEARINGIZER Lockout: 8 minutes, 4 Hour Limit (In MG): 6, Drug Form: INJ, Continuous, STAT, Start date: 03/09/13 16:20:00, Duration: 30 day, Stop date: 04/08/13 16:19:00 vancomycin + Sodium 1.25 gm, Route: IV, 03/07/2013 03/10/2013 Discontinued Chloride 0.9% IV 250 mL [id number], Dosing Weight 56.818, kg, Start date: 03/07/13 [...] date: 03/07/13 16:14:00, Stop date: 03/07/13 16:14:00 [place] 10/325 oral tablet 1 tab, Route: PO, [...] values reflect the clinical guidelines of the [place] [employer].4Interpretive Data: Adult reference range values reflect the clinical guidelines of the [place] [employer].5Interpretive Data: Therapeutic Range: Trough: 10 [...] posr surgical wound fluif or non stat [id number] FINAL REPORTS Final ReportModerate Staphylococcus aureus PRELIMINARY [...] Of Choice. Phone Report Made To: NIYA, [phone], Savi Majano RN At: 03/08/2013 23:01:25 Called By: LIA Read Back Ok PROCEDURE:Culture: Wound/Abscess w/Gram Stain STATUS: Auth (Verified) BODY SITE: Neck COLLECTED DATE/TIME: 03/08/2013 19:00:00 SOURCE: Wound, Surg FREE TEXT SOURCE: O2 swab-back of head FINAL REPORTS Final ReportModerate Staphylococcus aureus Refer To Culture # [id number] collected 03-09-13 For Susceptibility ResultsPRELIMINARY REPORTS Preliminary ReportModerate Staphylococcus aureus Procedures Procedures Date Related Diagnosis Craniectomy 1 1Chiari Malformation
--- OUTSIDE RECORDS SUMMARY | 2019-04-15 16:11 | XMS REPORT | Summary of Care ---
:1980 Author Organization [facility] Neurology [place] Address [address] [place] [address]- phone Encounter HQ Encntr_alias(FIN) [id number] Date(s): 05/05/18 - 05/06/18 [facility] [address] [place] [address]- [phone] Vital Signs No data available for this section Problem List Condition Effective Dates Status Health Status Informant Chiari malformation(Confirmed) Resolved Fibromyalgia(Confirmed) Active Murmur(Confirmed)1 Active Neck pain(Confirmed)2 Resolved Pain(Confirmed) Active 1patient states she had heart murmur-[id number] states her neck pain is due to chiari malformation. Allergies, Adverse Reactions, Alerts Substance Reaction Severity Status Esoterica with Sunscreen Active Medications No data available for this section Results No data available for this section Immunizations No data available for this section Procedures Procedure Date Related Diagnosis Body Site Status Appendectomy Completed Augmentation Completed Craniectomy1 Completed Knee joint operation Completed Oophorectomy Completed Tubal ligation Completed 1Chiari Malformation Social History Social History Type Response Substance Abuse Use: None. Alcohol Never Smoking Status Former smoker; Type: Cigarettes; Exposure to Tobacco Smoke Unable to obtain; Cigarette Smoking Last 365 Days Yes; Reg Smoking Cessation Counseling No entered on: 12/17/17 Assessment and Plan No data available for this section
--- OUTSIDE RECORDS SUMMARY | 2019-04-15 16:11 | XMS REPORT | CCD ---
:1980 Author Organization [facility] Care Team Providers Name Role Phone [...] mg, 1 supp, Route: 02/16/2013 02/16/2013 Discontinued DE, Drug form: SUPP, Daily, Dosing Weight 61.364, [...] values reflect the clinical guidelines of the [place] [employer].8Interpretive Data: Adult reference range values reflect the clinical guidelines of the [place] [employer].9Interpretive Data: Adult reference range values reflect the clinical guidelines of the [place] [employer].HEMATOLOGY Most recent to oldest 1 [...] Data: Heparin Therapeutic Range: 57 - 92 [id number] Data: Heparin Therapeutic Range: 57 - 92 Seconds
[2019-04-15] MEDS ORDERED: ACETAMINOPHEN 325 MG TABLET ONE (18:10)
--- NOTE | 2019-04-15 18:58 | EDPHYS ---
Physician Documentation [facility] Name: Deyanira Del Castillo Age: 39 yrs Sex: Female : 1980 Arrival Date: 04/15/2019 Time: 16:08 Bed 10 Private MD: Unknown, Unknown ED Physician Jesse Sierra HPI: 04/15 16:51 This 39 yrs old Female presents to ER via Ambulatory with complaints of jmm Fever, Sinus Congestion. 16:51 The patient reports fever, not measured (subjective). Onset: The symptoms/episode jmm began/occurred gradually, 1 day(s) ago. Modifying factors: there are no obvious modifying factors. Associated signs and symptoms: Pertinent positives: cough, diarrhea, headache. This is a 39 year old female with a history of chronic fatigue that presnts to the ED with complaints of cough, sinus pressure, headache, diarrhea beginning last night. Denies sick contacts. . 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 - Social history:: Smoking status: Patient uses tobacco products, smokes one pack cigarettes per day. - Ebola Screening: : Patient negative for fever greater than or equal to 101.5 degrees Fahrenheit, and additional compatible Ebola Virus Disease symptoms Patient denies exposure to infectious person Patient denies travel to an Ebola-affected area in the 21 days before illness onset No symptoms or risks identified at this time. ROS: 16:51 Cardiovascular: Negative for chest pain, palpitations, and edema. jmm 16:51 Constitutional: Positive for fever. 16:51 ENT: Negative for sore throat. 16:51 Respiratory: Positive for cough. 16:51 Abdomen/GI: Positive for diarrhea. 16:51 Neuro: Positive for headache. 16:51 All other systems are negative. Exam: 16:51 Constitutional: This is a well developed, well nourished patient who is awake, alert, jmm and in no acute distress. Head/Face: atraumatic. Eyes: EOMI, no conjunctival erythema appreciated ENT: Moist Mucus Membranes Neck: Trachea midline, Supple Chest/axilla: Normal chest wall appearance and motion. Cardiovascular: Regular rate and rhythm. No edema appreciated Respiratory: Normal respirations, no respiratory distress appreciated Abdomen/GI: Non distended, soft Back: Normal ROM Skin: General appearance color normal MS/ Extremity: Moves all extremities, no obvious deformities appreciated, no edema noted to the lower extremities Neuro: Awake and alert, normal gait Psych: Behavior is normal, Mood is normal, Patient is cooperative and pleasant Vital Signs: 16:16 BP 140 / 88; Pulse 72; Resp 16; Temp 98.0(TE); Pulse Ox 100% ; Weight 63.5 kg; Height 5 iw ft. 10 in. (177.80 cm); Pain 7/10; 16:16 Body Mass Index 20.09 (63.50 kg, 177.80 cm) iw MDM: 16:44 Patient medically screened. [facility] 18:46 Data reviewed: vital signs, nurses notes. Counseling: I had a detailed discussion with [facility] the patient and/or guardian regarding: the historical points, exam findings, and any diagnostic results supporting the discharge/admit diagnosis, lab results, radiology results, the need for outpatient follow up, to return to the emergency department if symptoms worsen or persist or if there are any questions or concerns that arise at home. ED course: Patient is alert and non toxic in appearance in the ED. No signs of resp distress. . 04/15 16:51 Order name: Flu; Complete Time: 18:36 [facility] Administered Medications: 18:12 Drug: Tylenol 650 mg Route: PO; iw Disposition: 04/15/19 18:46 Discharged to Home. Impression: Acute upper respiratory infection, unspecified. - Condition is Stable. - Discharge Instructions: Upper Respiratory Infection, Adult. - Prescriptions for Prednisone 20 mg Oral Tablet - take 3 tablet by ORAL route once daily for 5 days; 15 tablet. Zithromax Z- Zach 250 mg Oral Tablet - take 1 tablet by ORAL route as directed for 5 days Day 1 - take two (2) tablets one time. Day 2, 3, 4 , 5 take one (1) tablet once daily.; 6 tablet. Ultracet 37.5- 325 mg Oral Tablet - take 1 tablet by ORAL route every 6 hours - for up to 5 days; do not exceed 8 tablets per day.; 6 tablet. - Work release form, Medication Reconciliation Form, Thank You Letter, Antibiotic Education, Prescription Opioid Use form. - Follow up: Private Physician; When: 2 - 3 days; Reason: Recheck today's complaints, Continuance of care, Re-evaluation by your physician. Addendum: 04/20/2019 09:46 Co-signature as Attending Physician, Jesse Sierra MD I agree with the assessment and k dr plan of care. Signatures: Dispatcher [employer] EDNY Jesse Sierra MD MD [facility] Herman Harris PA PA jmm Williams, Irene, RN RN iw Corrections: (The following items were deleted from the chart) 04/15 19:03 18:46 04/15/2019 18:46 Discharged to Home. Impression: Acute upper respiratory iw infection, unspecified. Condition is Stable. Forms are Medication Reconciliation Form, Thank You Letter, Antibiotic Education, Prescription Opioid Use. Follow up: Private Physician; When: 2 - 3 days; Reason: Recheck today's complaints, Continuance of care, Re-evaluation by your physician. diana
--- NOTE | 2019-04-15 18:58 | ER ---
Nurse's Notes [facility] Name: Deyanira Del Castillo Age: 39 yrs Sex: Female : 1980 Arrival Date: 04/15/2019 Time: 16:08 Bed 10 Private MD: Unknown, Unknown Diagnosis: Acute upper respiratory infection, unspecified Presentation: 04/15 16:13 Presenting complaint: Patient states: fever, body aches, sinus drainage since iw yesterday, last Motrin at 1400. Transition of care: patient was not received from another setting of care. Onset of symptoms was April 15, 2019. Risk Assessment: Do you want to hurt yourself or someone else? Patient reports no desire to harm self or others. Initial Sepsis Screen: Does the patient meet any 2 criteria? No. Patient's initial sepsis screen is negative. Does the patient have a suspected source of infection? No. Patient's initial sepsis screen is negative. Care prior to arrival: None. 16:13 Method Of Arrival: Ambulatory iw 16:13 Acuity: VERA 4 iw Triage Assessment: 19:00 General: Appears in no apparent distress. 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 - Social history:: Smoking status: Patient uses tobacco products, smokes one pack cigarettes per day. - Ebola Screening: : Patient negative for fever greater than or equal to 101.5 degrees Fahrenheit, and additional compatible Ebola Virus Disease symptoms Patient denies exposure to infectious person Patient denies travel to an Ebola-affected area in the 21 days before illness onset No symptoms or risks identified at this time. Screenin:00 Abuse screen: Denies threats or abuse. Denies injuries from another. Nutritional iw screening: No deficits noted. Tuberculosis screening: No symptoms or risk factors identified. Fall Risk None identified. Assessment: 17:10 General: Appears in no apparent distress. Behavior is calm, cooperative. Pain: iw Complains of pain in head. Neuro: Level of Consciousness is awake, alert, obeys commands, Oriented to person, place, time, Moves all extremities. Cardiovascular: Patient's skin is warm and dry. Respiratory: Respiratory effort is even, unlabored. Derm: Skin is intact, is healthy with good turgor. Vital Signs: 16:16 BP 140 / 88; Pulse 72; Resp 16; Temp 98.0(TE); Pulse Ox 100% ; Weight 63.5 kg; Height 5 iw ft. 10 in. (177.80 cm); Pain 7/10; 16:16 Body Mass Index 20.09 (63.50 kg, 177.80 cm) ED Course: 16:08 Patient arrived in ED. ag5 16:08 Unknown, Unknown is Private Physician. ag5 16:13 Triage completed. 16:17 Arm band placed on. 16:20 Herman Harris PA is PHCP. [facility] 16:20 Jesse Sierra MD is Attending Physician. [facility] 17:00 Patient has correct armband on for positive identification. 17:47 Tia Holder, RN is Primary Nurse. iw 19:00 Patient did not have IV access during this emergency room visit. iw 19:00 No provider procedures requiring assistance completed. iw Administered Medications: 18:12 Drug: Tylenol 650 mg Route: PO; Outcome: 18:46 Discharge ordered by MD. [facility] 19:02 Discharged to home ambulatory. iw 19:02 Condition: good 19:02 Discharge instructions given to patient, Instructed on discharge instructions, follow up and referral plans. medication usage, Demonstrated understanding of instructions, follow-up care, medications, Prescriptions given X 3. 19:03 Patient left the ED. Signatures: Herman Harris PA PA jmm Williams, Irene, RN RN EvaGenny ag5
[2019-04-15 20:24] VITALS: BP 140/88; TEMP 98; O2SAT 100
== END 2019-04-15 19:03 | disposition home or self-care (01) ==
LOC: ER 16:04
DX: J06.9 Acute upper respiratory infection, unspecified (principal); F17.210 Nicotine dependence, cigarettes, uncomplicated; Z98.82 Breast implant status
CPT/HCPCS: 87804; 99283

== ENCOUNTER 2019-10-27 19:20 | Emergency (ER) | payer OTHER, SELFPAY ==
[2019-10-27] MEDS ORDERED: KETOROLAC 30 MG/ML INJ ONE (20:02)
[2019-10-27] MEDS ORDERED: NA CHLORIDE 0.9% 1,000 ML ONE (20:02)
[2019-10-27] MEDS ORDERED: LORazepam 2 MG/ML VIAL ONE (20:02)
--- NOTE | 2019-10-27 20:26 | EDPHYS ---
Physician Documentation [facility] Name: Deyanira Del Castillo Age: 39 yrs Sex: Female : 1980 Arrival Date: 10/27/2019 Time: 19:24 Bed 17 Private MD: MEHRDAD Physician Levi Agudelo HPI: 10/26 19:59 This 39 yrs old Female presents to ER via Ambulatory with complaints of kathleen Altered Mental Status. 19:59 The patient presents with confusion. 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 - Social history:: Smoking status: Patient reports the use of cigarette tobacco products, smokes one-half pack cigarettes per day, Patient uses alcohol, Patient/guardian denies using street drugs. ROS: 20:00 Constitutional: Negative for fever, chills, and weight loss, Eyes: Negative for injury, kathleen pain, redness, and discharge, ENT: Negative for injury, pain, and discharge, Neck: Negative for injury, pain, and swelling, Cardiovascular: Negative for chest pain, palpitations, and edema, Respiratory: Negative for shortness of breath, cough, wheezing, and pleuritic chest pain, Abdomen/GI: Negative for abdominal pain, nausea, vomiting, diarrhea, and constipation, Back: Negative for injury and pain, : Negative for injury, bleeding, discharge, and swelling, MS/Extremity: Negative for injury and deformity, Skin: Negative for injury, rash, and discoloration, Neuro: Negative for headache, weakness, numbness, tingling, and seizure, Allergy/Immunology: Negative for hives, rash, and allergies, Endocrine: Negative for neck swelling, polydipsia, polyuria, polyphagia, and marked weight changes, Hematologic/Lymphatic: Negative for swollen nodes, abnormal bleeding, and unusual bruising. 20:00 Psych: Positive for depression, suicidal ideation. Exam: 20:00 Constitutional: This is a well developed, well nourished patient who is awake, alert, kathleen and in no acute distress. Head/Face: Normocephalic, atraumatic. Eyes: Pupils equal round and reactive to light, extra-ocular motions intact. Lids and lashes normal. Conjunctiva and sclera are non-icteric and not injected. Cornea within normal limits. Periorbital areas with no swelling, redness, or edema. ENT: Nares patent. No nasal discharge, no septal abnormalities noted. Tympanic membranes are normal and external auditory canals are clear. Oropharynx with no redness, swelling, or masses, exudates, or evidence of obstruction, uvula midline. Mucous membranes moist. Neck: Trachea midline, no thyromegaly or masses palpated, and no cervical lymphadenopathy. Supple, full range of motion without nuchal rigidity, or vertebral point tenderness. No Meningismus. Chest/axilla: Normal chest wall appearance and motion. Nontender with no deformity. No lesions are appreciated. Cardiovascular: Regular rate and rhythm with a normal S1 and S2. No gallops, murmurs, or rubs. Normal PMI, no JVD. No pulse deficits. Respiratory: Lungs have equal breath sounds bilaterally, clear to auscultation and percussion. No rales, rhonchi or wheezes noted. No increased work of breathing, no retractions or nasal flaring. Abdomen/GI: Soft, non-tender, with normal bowel sounds. No distension or tympany. No guarding or rebound. No evidence of tenderness throughout. Back: No spinal tenderness. No costovertebral tenderness. Full range of motion. Skin: Warm, dry with normal turgor. Normal color with no rashes, no lesions, and no evidence of cellulitis. MS/ Extremity: Pulses equal, no cyanosis. Neurovascular intact. Full, normal range of motion. Neuro: Awake and alert, GCS 15, oriented to person, place, time, and situation. Cranial nerves II-XII grossly intact. Motor strength 5/5 in all extremities. Sensory grossly intact. Cerebellar exam normal. Normal gait. 20:00 Psych: Behavior/mood is cooperative, Affect is animated, Oriented to person, place, time, Patient has no thoughts/intents to harm self or others. Judgement / Insight is normal. Memory is normal. Delusions/hallucinations are not present. Vital Signs: 19:29 BP 109 / 82; Pulse 77; Resp 18; Temp 98.0(O); Pulse Ox 100% on R/A; Weight 63.5 kg (R); fc Height 5 ft. 10 in. (177.80 cm) (R); Pain 6/10; 21:43 BP 107 / 80; Pulse 64; Resp 15; Temp 97.9; Pulse Ox 100% on R/A; rv 23:00 BP 115 / 83; Pulse 59; Resp 15; Temp 98; Pulse Ox 100% on R/A; rv 19:29 Body Mass Index 20.09 (63.50 kg, 177.80 cm) fc MDM: 19:41 Patient medically screened. [facility] 20:03 Data reviewed: vital signs, nurses notes, lab test result(s), EKG. [facility] 10/26 19:54 Order name: Acetaminophen; Complete Time: 21:15 [facility] 10/26 19:54 Order name: Basic Metabolic Panel; Complete Time: 21:15 [facility] 10/26 19:54 Order name: CBC with Diff; Complete Time: 20:59 [facility] 10/26 19:54 Order name: ETOH Level; Complete Time: 21:15 [facility] 10/26 19:54 Order name: Hepatic Function; Complete Time: 21:15 [facility] 10/26 19:54 Order name: PT-INR; Complete Time: 20:59 [facility] 10/26 19:54 Order name: Ptt, Activated; Complete Time: 20:59 [facility] 10/26 19:54 Order name: Salicylate; Complete Time: 21:15 [facility] 10/26 19:54 Order name: Urine Drug Screen; Complete Time: 20:59 [facility] 10/26 20:12 Order name: Urine Dipstick--Ancillary (enter results); Complete Time: 20:59 [facility] 10/26 19:54 Order name: EKG; Complete Time: 19:55 [facility] 10/26 19:54 Order name: EKG - Nurse/Tech; Complete Time: 20:19 [facility] 10/26 19:54 Order name: IV Saline Lock; Complete Time: 20:19 [facility] 10/26 19:54 Order name: Labs collected and sent; Complete Time: 20:19 [facility] 10/26 19:54 Order name: Urine Dipstick-Ancillary (obtain specimen); Complete Time: 20:19 [facility] 10/26 19:54 Order name: Urine Dipstick-Ancillary (obtain specimen); Complete Time: 20:10 [facility] 10/26 19:54 Order name: Urine Test (obtain specimen); Complete Time: 20:10 [facility] 10/26 21:17 Order name: PO challenge: juice; Complete Time: 21:40 [facility] Administered Medications: 20:18 Drug: NS 0.9% 1000 ml Route: IV; Rate: 1 bolus; Site: right antecubital; rv 21:39 Follow up: IV Status: Completed infusion; IV Intake: 1000ml rv 20:18 Drug: Ativan 1 mg Route: IVP; Site: right antecubital; rv 21:39 Follow up: Response: No adverse reaction rv 20:19 Drug: TORadol 30 mg Route: IVP; Site: right antecubital; rv 21:39 Follow up: Response: No adverse reaction rv 21:39 Drug: Potassium Effervescent Tablet 25 mEq Route: PO; rv 23:47 Follow up: Response: No adverse reaction rv Disposition: 10/27/19 20:22 Transfer ordered to [facility]. Diagnosis are Major depressive disorder, recurrent, Suicidal ideations. - Reason for transfer: Higher level of care. - Accepting physician is to [facility]. - Condition is Stable. - Problem is new. - Symptoms have improved. Signatures: Dispatcher [employer] EDLevi Levi MD MD cha Chretien, Felicia, RN RN Hansel Jose RN RN rv Corrections: (The following items were deleted from the chart) 23:50 20:22 10/27/2019 20:22 Transfer ordered to [facility]. Diagnosis is Major rv depressive disorder, recurrent; Suicidal ideations. Reason for transfer: Higher level of care. Accepting physician is to [facility]. Condition is Stable. Problem is new. Symptoms have improved. kathleen
--- NOTE | 2019-10-27 20:26 | ER ---
Nurse's Notes [facility] Name: Deyanira Del Castillo Age: 39 yrs Sex: Female : 1980 Arrival Date: 10/27/2019 Time: 19:24 Bed 17 Private MD: Diagnosis: Major depressive disorder, recurrent;Suicidal ideations Presentation: 10/26 19:29 Chief complaint: Patient states: that she is in the middle of a mental breakdown. She fc is hearing voices. Feels as if she is waiting for someone else to make decisions instead of herself. Passes out x 4. Has abrasions to both arms. This started at 1600 today. States she also has pain to both arms due to fall. Coronavirus screen: Patient denies fever greater than 100.4F, cough, shortness of breath, or difficulty breathing. Proceed with normal triage process. Ebola Screen: Patient negative for fever greater than or equal to 101.5 degrees Fahrenheit, and additional compatible Ebola Virus Disease symptoms Patient denies exposure to infectious person. Patient denies travel to an Ebola-affected area in the 21 days before illness onset. Initial Sepsis Screen: Does the patient meet any 2 criteria? No. Patient's initial sepsis screen is negative. Does the patient have a suspected source of infection? No. Patient's initial sepsis screen is negative. Risk Assessment: Do you want to hurt yourself or someone else? Patient reports desire/thoughts of hurting themselves or someone else. Provider notified. Other: But states she would rather just disappear first but would use suicide as a last resort. 19:29 Method Of Arrival: Ambulatory 19:29 Acuity: VERA 2 fc 20:05 Onset of symptoms is unknown. rv Triage Assessment: 20:06 General: Appears in no apparent distress. 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 - Social history:: Smoking status: Patient reports the use of cigarette tobacco products, smokes one-half pack cigarettes per day, Patient uses alcohol, Patient/guardian denies using street drugs. Screenin:05 Abuse screen: Denies threats or abuse. Nutritional screening: No deficits noted. rv Tuberculosis screening: No symptoms or risk factors identified. Fall Risk None identified. Assessment: 20:00 General: patient did not expressed to hurt herself. she wants to disappear and runaway rv from the situation but denies hurting herself. with audio and visual hallucinations.. General: Behavior is anxious, restless. Pain: Complains of pain in generalized. Neuro: Level of Consciousness is awake, alert, obeys commands, Oriented to person, place, time, situation. Cardiovascular: Patient's skin is warm and dry. Respiratory: Airway is patent Breath sounds are clear bilaterally. Derm: abrasions/scratches all over the body. 21:42 Reassessment: Patient appears in no apparent distress at this time. Patient and/or rv family updated on plan of care and expected duration. Pain level reassessed. Patient is alert, oriented x 3, equal unlabored respirations, skin warm/dry/pink. patient is sedated after the dose of the Ativan. asleep and comfortable on the stretcher. 23:00 Reassessment: Patient appears in no apparent distress at this time. Patient and/or rv family updated on plan of care and expected duration. Pain level reassessed. Patient is alert, oriented x 3, equal unlabored respirations, skin warm/dry/pink. patient was able to walk on her own to the restroom and back to the examination room. GCS 15 prior to discharge. Vital Signs: 19:29 BP 109 / 82; Pulse 77; Resp 18; Temp 98.0(O); Pulse Ox 100% on R/A; Weight 63.5 kg (R); fc Height 5 ft. 10 in. (177.80 cm) (R); Pain 6/10; 21:43 BP 107 / 80; Pulse 64; Resp 15; Temp 97.9; Pulse Ox 100% on R/A; rv 23:00 BP 115 / 83; Pulse 59; Resp 15; Temp 98; Pulse Ox 100% on R/A; rv 19:29 Body Mass Index 20.09 (63.50 kg, 177.80 cm) ED Course: 19:24 Patient arrived in ED. cl3 19:26 Levi Agudelo MD is Attending Physician. kathleen 19:33 Triage completed. fc 19:37 Arm band placed on Patient placed in an exam room, on a stretcher. fc 19:59 Hansel Jose, RN is Primary Nurse. rv 20:05 Patient has correct armband on for positive identification. Placed in gown. Bed in low rv position. Call light in reach. Pulse ox on. NIBP on. Warm blanket given. 20:17 Initial lab(s) drawn, by ca, sent to lab. Inserted saline lock: 18 gauge in right rv antecubital area, using aseptic technique. Blood collected. 23:15 No provider procedures requiring assistance completed. IV discontinued, intact, rv bleeding controlled, No redness/swelling at site. Pressure dressing applied. Administered Medications: 20:18 Drug: NS 0.9% 1000 ml Route: IV; Rate: 1 bolus; Site: right antecubital; rv 21:39 Follow up: IV Status: Completed infusion; IV Intake: 1000ml rv 20:18 Drug: Ativan 1 mg Route: IVP; Site: right antecubital; rv 21:39 Follow up: Response: No adverse reaction rv 20:19 Drug: TORadol 30 mg Route: IVP; Site: right antecubital; rv 21:39 Follow up: Response: No adverse reaction rv 21:39 Drug: Potassium Effervescent Tablet 25 mEq Route: PO; rv 23:47 Follow up: Response: No adverse reaction rv Intake: 21:39 IV: 1000ml; Total: 1000ml. rv Outcome: 20:22 ER care complete, transfer ordered by . kathleen 23:15 Transferred by ground EMS to [facility], Transfer form completed. X-rays rv sent w/ patient. 23:15 Condition: good 23:15 Instructed on the need for transfer, Demonstrated understanding of instructions. rv 23:50 Patient left the ED. rv Signatures: Levi Agudelo MD MD cha Chretien, Felicia, RN RN Hansel Jose, DOV RN Candace Herrera cl3
[2019-10-27 20:28] LABS: Basophils % 0.8 % (0-1.3); MPV 8.7 fL (7.6-11.3); RBC Red Blood Cell Count 3.99 M/uL (3.86-4.86)
[2019-10-27 20:31] LABS: Protime INR 1.04
[2019-10-27 20:43] LABS: Urine Specific Gravity <1.005 (1.005-1.030)
[2019-10-27 20:44] LABS: Urine Blood NEGATIVE (NEG); Urine Glucose NEGATIVE (NEG); Urine Protein NEGATIVE (NEG)
[2019-10-27 20:49] LABS: Barbiturates NEGATIVE (NEGATIVE); Benzodiazepines NEGATIVE (NEGATIVE); Cocaine NEGATIVE (NEGATIVE); METHAMPHETAM NEGATIVE (NEGATIVE); Methadone NEGATIVE (NEGATIVE); Opiates NEGATIVE (NEGATIVE); Phencyclidine NEGATIVE (NEGATIVE); THC Cannibis NEGATIVE (NEGATIVE)
[2019-10-27 21:04] LABS: ALT/SGPT 16 U/L (12-78); AST/SGOT 14 U/L (15-37); Albumin 4.1 g/dL (3.4-5.0); Alkaline Phosphatase 74 U/L (45-117); BUN Blood Urea Nitrogen 13 mg/dL (7-18); Bicarbonate 24 mmol/L (21-32); Bilirubin Direct 0.3 mg/dL (0-0.2); Bilirubin Total 1.6 mg/dL (0.2-1.0); Glucose Level 82 mg/dL (74-106); Potassium 3.3 mmol/L (3.5-5.1); Protein, Total 7.3 g/dL (6.4-8.2); Sodium Level 136 mmol/L (136-145)
[2019-10-27] MEDS ORDERED: POTASSIUM 25 MEQ EFFERV TAB ONE (21:31)
[2019-10-27 23:58] VITALS: O2SAT 100
[2019-10-28 00:19] VITALS: BP 115/83; TEMP 98
--- NOTE | 2019-10-28 10:58 | EKG ---
Test Date: 2019-10-27 Test Time: 20:28:55 Batch Room Technician: ZACHARIAH MEASUREMENT RESULTS: Intervals: Rate: 60 PA: 158 QRSD: 84 QT: 434 QTc: 434 [place]: P: 64 PA: 158 QRS: 76 T: 55 INTERPRETIVE STATEMENTS: Normal sinus rhythm Normal ECG No previous ECG available for comparison Electronically Signed On 10-28-19 10:56:12 CDT by Eriberto Barry
== END 2019-10-27 23:50 | disposition short-term general hospital (02) ==
LOC: ER 19:20
DX: R45.851 Suicidal ideations (principal); F33.9 Major depressive disorder, recurrent, unspecified; F17.210 Nicotine dependence, cigarettes, uncomplicated; R53.82 Chronic fatigue, unspecified; Z98.82 Breast implant status
CPT/HCPCS: 96361; 93005; 85025; 80048; 36415; 80320; 80329 ×2; 85610; 80076; 80307 ×8; 85730; 81003; 96375; 96374; 99285; J7030

== ENCOUNTER 2019-11-09 21:43 | Emergency (ER) | payer OTHER ==
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
[2019-11-09 23:27] VITALS: BP 122/80; TEMP 98.8; O2SAT 98
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
== END 2019-11-09 23:12 | disposition home or self-care (01) ==
LOC: ER 21:43
DX: R07.89 Other chest pain (principal); F17.210 Nicotine dependence, cigarettes, uncomplicated; V49.50XA Passenger injured in collision with unspecified motor vehicles in traffic accident, initial encounter; Z98.82 Breast implant status; Z91.030 Bee allergy status; Z91.048 Other nonmedicinal substance allergy status
CPT/HCPCS: 71045; 99283